=== PATIENT | male | born 1985 | race Asian ===

== ENCOUNTER → 2023-06-17 08:08 | Outpatient (REF) | payer OTHER, SELFPAY | LOC: DHSLP 08:08 | PROVIDERS: ATTENDING PHYSICIAN Family Medicine | DX: G47.00 Insomnia, unspecified (principal); R06.83 Snoring | CPT/HCPCS: 95810 ==

== ENCOUNTER → 2023-09-02 | Outpatient (REF) | payer OTHER, SELFPAY | LOC: DHSLP | PROVIDERS: ATTENDING PHYSICIAN Internal Medicine; FAMILY PHYSICIAN Family Medicine | DX: G47.33 Obstructive sleep apnea (adult) (pediatric) (principal); G47.00 Insomnia, unspecified | CPT/HCPCS: 95810 ==

== ENCOUNTER 2023-12-28 03:12 | Inpatient (IN) | payer OTHER, SELFPAY ==
[2023-12-27 22:33] VITALS: BP 154/103
[2023-12-27 23:16] VITALS: BMI 31.0
[2023-12-27 23:21] VITALS: BP 142/81
--- NOTE | 2023-12-27 23:25 | ED.GENMED ---
History of Present Illness
General
Chief Complaint: Abdominal Pain
Source: patient
Exam Limitations: none
Time Seen by Provider: 12/27/23 22:58
History of Present Illness
History of Present Illness:
This is a 38 year old male that comes in with c/o vomiting and abd pain. States that he started with vomiting on Tuesday and this continued today. States that he has abd pain that started today with the vomiting. States that he felt slightly SOB, had
diarrhea and dizziness. Denies any fever, chills, chest pain, headache, urinary burning.
Past History
Past History
ED Past Medical History: Arrthythmia (SVT), HTN, Psychiatric (Anxiety) and Other (Sleep apnea, Colitis, )
ED Past Surgical History: Cardiac (Ablation for SVT) and Other (Deviated septum repair)
Social History
Tobacco: Non-smoker
Alcohol: None
Drug: Marijuana (for his anxiety)
Personal: Single
Living: with family
Review of Systems
Review of Systems
All Other Systems: ROS reviewed and negative except as documented in HPI and ROS
Constitutional: Reports no symptoms; Denies fever or chills
EENT: Reports no symptoms
Respiratory: Reports trouble breathing; Denies cough
Cardiac: Reports no symptoms; Denies chest pain
ABD/GI: Reports abdominal pain, nausea, vomiting and diarrhea
: Reports no symptoms; Denies dysuria, frequency or urgency
Musculoskeletal: Reports no symptoms
Skin: Reports no symptoms
Neurological: Reports dizzy; Denies headache
Psychiatric: Reports no symptoms
Phy Exam
General Physical Exam
General Presentation: no apparent distress
General age: appears stated age
General Skin: warm and dry
General Habitus: normal
General Mental: alert
General Hydration: dry mucous membranes
ENT Exam
ENT Exam: TM's normal, pharynx normal and neck supple
Eye Exam
Eye Exam: EOMI
Cardiovascular Exam
Cardiovascular Exam: regular rate/rhythm, no edema, no murmur and normal peripheral pulses
Pulmonary Exam
Pulmonary Exam: lungs clear, no respiratory distress, no rales, chest non tender, no crackles, no rhonchi, no wheezing and no cough
Gastrointestinal Exam
Gastrointestinal Exam: normal bowel sounds, soft, no organomegaly, no pulsatile mass, non distended and tender (Left sided abd tenderness with palpation)
Musculoskeletal Exam
Musculoskeletal Exam: full ROM and no edema
Skin Exam
Skin Exam: normal color, warm/dry, no rash and no petechia
Psychiatric Exam
Psychiatric Exam: normal mood/affect
Course
Orders/Labs/Results
Orders:
Orders
12/27/23 23:22
0.9% Sodium Chloride 1000 ml [Nss] 1,000 ml IV BOLUS
Ondansetron Injectable [Zofran] 4 mg IV NOW STA
12/27/23 23:24
Ketorolac [Toradol] 30 mg IV NOW STA
12/27/23 23:33
B-Hydroxybutyrate Urgent
Comment: ADD ON
CBC/With Diff [Complete Blood Count/With Diff] Urgent
CMP [Comprehensive Metabolic Panel] Urgent
Lipase Urgent
12/28/23 00:02
Diphenhydramine [Benadryl] 25 mg IV NOW STA
Prochlorperazine [Compazine] 5 mg IV NOW STA
12/28/23 00:24
Add On- LAB Urgent
Tests Added?: B-hydroxybutyrate
12/28/23 00:53
0.9% Sodium Chloride 1000 ml [Nss] 1,000 ml IV BOLUS
12/28/23 01:00
CT Abd/pelvis W Iv Cont Urgent
Reason For Exam: Left sided abd pain
12/28/23 01:17
Acetaminophen [Tylenol] 1,000 mg PO NOW STA
12/28/23 01:18
Acetaminophen [Tylenol] 1,000 mg .ROUTE .STK-MED ONE
12/28/23 01:43
Reg Insulin 100 Units/100 ml [Novolin R Insulin Infusion] 100 units in 100 ml IV NOW
12/28/23 01:45
Bedside Glucose- Treatment Q1H
IV Insert/Care/Rem.- Treatment PRN
Basic Metabolic Panel Q2H
12/28/23 03:45
Basic Metabolic Panel Q2H
12/28/23 05:45
Basic Metabolic Panel Q2H
Abnormal Lab Results
12/27/23 12/28/23
23:33 01:40
WBC 13.9 H 10^3/uL
(4.8-10.8)
MCH 31.9 H pg
(27.0-31.0)
Abs Immat Gran (auto) 0.1 H 10^3/uL
(0-0.05)
Absolute Neuts (auto) 11.9 H 10^3/uL
(1.4-6.5)
Neutrophils % 85.5 H %
(42.2-75.2)
Lymphocytes % 9.9 L %
(20.5-51.1)
Potassium 5.2 H mmol/L
(3.5-5.1)
Carbon Dioxide 19 L mmol/L
(22-30)
Glucose 191 H mg/dl
(70-99)
Calcium 10.5 H mg/dl
(8.4-10.2)
Albumin 5.3 H g/dl
(3.5-5.0)
B-Hydroxybutyrate 1.60 H mmol/L
(0.02-0.27)
POC Glucose 156 H mg/dl
(70-99)
12/27/23 23:33
Leukocytosis, carbon dioxide low. Hyperglycemia. Hypercalemia, Albumin slightly elevated B-Hydroxybutyrate elevated and Anion Gap 16.
Vital Signs
Initial and Last Documented VS:
Initial Vital Signs
Pulse Resp BP Pulse Ox
95 24 154/103 97
12/27/23 22:33 12/27/23 22:33 12/27/23 22:33 12/27/23 22:33
Last Documented Vital Signs
Temp Pulse Resp BP Pulse Ox
98.5 F 79 14 138/91 100
12/28/23 00:30 12/27/23 23:45 12/27/23 23:45 12/27/23 23:42 12/27/23 23:45
MDM/Problems Addressed
Differential Diagnosis Includes:
Viral syndrome, Colitis, Diverticulitis
MDM/Problems Addressed:
This is a 38 year old male that comes in with c/o nausea,vomiting, diarrhea and abd pain. States that this started yesterday and continued all day today.
will check labs. IV fluid. Medication for pain and nausea and get Ct scan.
Back into see patient. Explained that his CT scan is negative for any acute process. His blood work shows that he may have new onset diabetes. Finger stick was done after 2 liters and his Blood sugar remains 156. Will start on Insulin and admit
patient. Hospitalist notified.
Chronic conditions affecting care:
NA
Acute Exacerbation and/or Progression of Chronic Illness:
NA
*Radiology
Radiology exam reviewed: radiology read reviewed (CT night hawk- No definite cause for acute abdominal pain identified. Normal appendix. No calcified gallstones. No bowel obstruction or bowel wall thickening. No obstructive urolithiasis. No free
fluid nor free air. )
*Pulse Oximetry
Patient hypoxic: no
*EKG
Interpreted by ED Provider?: NA
Rate: EKG- N/A
*Organic Chemist Interpretation
Rate: Organic Chemist- N/A
*Critical Care Note
Total Time (30-74mins, 75-104mins- exclusive of procedures): Not Applicable
ED Attending Note
-
Portions of this chart may have been created with voice recognition software.� Occasional wrong word or��sound alike� substitutions may have occurred due to the inherent limitations of voice recognition software.
Discharge Plan
Departure
Patient Disposition: Admit
Date of Disposition: 12/28/23
Time of Disposition: 01:49
Admit to: IMU
Presentation/result/management discussed w/ accepting MD/DO: Hospitalist
Patient with high blood pressure during this ER visit?: Yes
Condition: Good
Covid-19: Not Applicable
Discharge Problem:
Nausea & vomiting, Diabetes mellitus, new onset
Prescriptions:
No Action
multivitamin 1 EACH tablet
1 ea PO DAILY
Unisom (doxylamine) 25 MG tablet
25 mg PO HS
alprazolam 1 MG tablet
1 mg PO HS
diphenhydramine HCl [Banophen] 25 MG capsule
25 mg PO HS
fluticasone propionate 1 SPRAY spray,suspension
2 spray intranasal DAILY
finasteride 1 MG tablet
2.5 mg PO DAILY
amlodipine [Norvasc] 2.5 mg Tablet
2.5 mg PO DAILY
escitalopram oxalate [Lexapro] 5 mg Tablet
5 mg PO QPM
metoprolol succinate 100 mg tablet extended release 24 hr
100 mg PO DAILY
pygeum africanum 50 mg Capsule
250 mg PO DAILY
ondansetron 4 mg tablet,disintegrating
4 mg PO BIDPRN PRN (Reason: NAUSEA)
PreserVision AREDS-2 250-90-40-1 mg Capsule
1 tab PO HS
[place] 3-6-9 1,200 mg Capsule
1 cap PO DAILY
nystatin 100,000 unit/mL Suspension
5 ml PO QID 14 Days Qty: 280 0RF
dicyclomine 20 mg tablet
20 mg PO BIDPRN PRN (Reason: gastric upset abdomen pain) 7 Days Qty: 14 0RF
Referrals:
Schnur,Lázaro H., MD [Family Provider] -
Interventions
Interventions:
*Risk Screen - Suicide Last Done: 12/27/23 23:05
*General Assessment Last Done: 12/27/23 23:05
ED- Fall Risk Assessment Last Done: 12/27/23 23:05
*ED COVID-19 Vaccine History Last Done: 12/27/23 23:05
BH-Wwolzs-Rvijpqcbvh Assessment Last Done: 12/27/23 23:05
Discharge Date and Time
Print Language: FINNISH
[2023-12-27] MEDS: NSS 1000 IV (23:31)
[2023-12-27] MEDS: TORADOL 30 MG IV (23:38)
[2023-12-27] MEDS: ZOFRAN 4 MG IV (23:38)
[2023-12-27 23:41] LABS: % Basophils 0.4 % (0-2); % Eosinophils 0.1 % (0-6); % Immature Granulocytes 0.4 % (0-0.5); % Lymphocytes 9.9 % (20.5-51.1); % Monocytes 3.7 % (1.7-9.3); % Neutrophils 85.5 % (42.2-75.2); Absolute Basophils 0.1 10^3/uL (0-0.2); Absolute Immature Granulocytes 0.1 10^3/uL (0-0.05); Absolute Lymphocytes 1.4 10^3/uL (1.2-3.4); Absolute Monocytes 0.5 10^3/uL (0.1-0.6); Absolute Neutrophils 11.9 10^3/uL (1.4-6.5); Hematocrit 44.9 % (39.0-52.0); Hemoglobin 16.4 g/dL (13.0-18.0); Mean Corp Hgb Conc. 36.5 g/dL (33.0-37.0); Mean Corpuscular Hgb 31.9 pg (27.0-31.0); Mean Corpuscular Volume 87.4 fL (80.0-94.0); Mean Platelet Volume 10.2 fL (7.4-10.4); Nucleated Red Blood Cells % 0 % (-); Platelet Count 297 10^3/uL (130-400); Red Blood Cell Count 5.14 10^6/uL (4.70-6.10); Red Cell Dist. Width 12.1 % (11.5-14.5); White Blood Cell Count 13.9 10^3/uL (4.8-10.8)
[2023-12-27 23:42] VITALS: BP 138/91
[2023-12-27 23:53] LABS: ALT (SGPT) 38 U/L (0-50); AST (SGOT) 31 U/L (17-59); Albumin 5.3 g/dl (3.5-5.0); Alkaline Phosphatase 52 U/L (38-126); Blood Urea Nitrogen 13 mg/dl (9-20); Calcium 10.5 mg/dl (8.4-10.2); Carbon Dioxide 19 mmol/L (22-30); Chloride 102 mmol/L (98-107); Estimated Creatinine Clearance 111 ml/min; Glucose 191 mg/dl (70-99); Lipase 80 U/L (23-300); Potassium 5.2 mmol/L (3.5-5.1); Sodium 137 mmol/L (135-145); Total Bilirubin 1.1 mg/dl (0.2-1.3); Total Protein 8.1 g/dl (6.3-8.2); eGFR > 60.00
[2023-12-28] VITALS (13 sets, daily range): BP systolic 116–176; BP diastolic 82–112; PULSE 86–96; BMI 30.2
[2023-12-28] MEDS: BENADRYL 25 MG IV (00:08)
[2023-12-28] MEDS: COMPAZINE 5 MG IV ×3 (00:09→19:31)
[2023-12-28] MEDS: NSS 1000 IV ×5 (00:57→20:42)
[2023-12-28] MEDS: TYLENOL 1000 MG PO (01:24)
[2023-12-28 01:44] LABS: Glucose - Point of Care 156 mg/dl (70-99)
--- NOTE | 2023-12-28 02:24 | HPS.HSE ---
Family Physician
-
Family Physician: Lázaro Quezada
Chief Complaint
-
N/V, Abdominal Pain
History of Present Illness
Patient is a 38y M with PMH significant for SVT, anxiety and cyclic vomiting syndromes who presents to ED complaining of N/V and abdominal pain. Patient states that he developed nausea with persistent episodes of non-bloody, bilious emesis on
Tuesday of this week. He notes that he has been unable to tolerate any PO intake in the past 2 days. He developed epigastric abdominal pain - after having persistent emesis. He denies any BM, diarrhea, etc. He denies any fevers / chills. He
complains of fatigue general malaise, dry mouth. Patient has had multiple prior admissions for similar symptoms, but states that current symptoms are more severe. He denies any new medications / changes in chronic med regimen.
Medical History
Past Medical History
Past Medical History: Reports Other
Additional Past Medical History:
Generalized Anxiety
SVT s/p Ablation
Hypertension
Obesity
Past Surgical History: Reports Other
Additional Past Surgical History:
SVT Ablation
Nasal Septoplasty
Social History
Tobacco: Vaping (Marijuana vaping - 'more than I should'. Last use 2 days ago.)
Alcohol: None
Drug: Marijuana (As above)
Family History
Family History: Adopted
Allergies / Home Medications
Allergies reflects when Allergies were last updated in [facility].
Home Medications with original date entered in [facility]
Allergy/Medication List:
Allergies
Allergy/AdvReac Type Severity Reaction Status Date / Time
No Known Allergies Allergy Verified 12/27/23 22:36
Home Medications
doxylamine succinate 25 mg tablet (Unisom (doxylamine)) 25 mg PO HS Sleep 04/14/17
alprazolam 1 mg tablet 1 mg PO HS Mental Health/Anxiety 01/25/20
diphenhydramine HCl 25 mg capsule (Banophen) 25 mg PO HS Sleep 01/25/20
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
fluticasone propionate 50 mcg/actuation nasal spray,suspension 1 spray intranasal BID Allergies 01/25/20
amlodipine 2.5 mg tablet (Norvasc) 2.5 mg PO DAILY Heart disease/condition 12/12/21
metoprolol succinate 100 mg tablet,extended release 24 hr 100 mg PO DAILY 06/20/22
bupropion HCl 300 mg 24 hr tablet, extended release 300 mg PO DAILY 12/28/23
emtricitabine 200 mg-tenofovir disoproxil fumarate 300 mg tablet (Truvada) 1 tab PO DAILY 12/28/23
Review of Systems
-
History Source: Patient
A 12 point ROS was completed and negative except as noted: Yes
Constitutional: Reports Fatigue; Denies Fever
EENT: Denies Sore Throat
Respiratory: Denies Cough or Trouble Breathing
Cardiac: Denies Chest Pain or Palpitations
Abdomen/GI: Reports Abdominal Pain, Nausea and Vomiting; Denies Diarrhea or Constipated
: Denies Dysuria or Frequency
Musculoskeletal: Denies Joint Pain or Edema
Neurological: Reports Headache; Denies Dizzy
Psych: Denies Depression or Anxiety
Physical Exam
Vital Signs
Vital Signs
Temp Pulse Resp BP Pulse Ox
98.5 F 90 21 148/95 100
12/28/23 00:30 12/28/23 02:00 12/28/23 02:00 12/28/23 01:26 12/28/23 01:45
Physical Exam
General: Other (38y M pale-appearing and in mild distress due to nausea.)
HEENT: Other (Dry MM. )
Respiratory: Clear; No Wheezes, Rales or Rhonchi
Cardiac: S1/S2 and Regular Rhythm; No Murmur
GI: Soft, Non Distended, Normal Bowel Sounds and Other (Mildly / diffusely tender.)
Musculoskeletal: No Clubbing, No Cyanosis and No Edema
Neuro: AO x 3
Laboratory Results
-
12/27/23 23:33
Laboratory Results
Total Bilirubin 1.1 mg/dl (0.2-1.3) 12/27/23 23:33
AST 31 U/L (17-59) 12/27/23:33
ALT 38 U/L (0-50) 12/27/23:33
Alkaline Phosphatase 52 U/L (38-126) 12/27/23:
Lipase 80 U/L (23-300) 12/27/23:33
Impression/Plan
-
A/P: Patient is a 38y M with PMH significant for anxiety and CVS who presents to ED complaining of N/V x 2 days and upper abdominal discomfort.
Intractable N/V
Abdominal Pain
Cyclic Vomiting Syndrome
- Admit for further evaluation and treatment.
- Supportive measures including antiemetics, IVFs, etc.
- Follow for clinical improvement.
- Again counseled patient on contribution marijuana (medical or otherwise) is likely having on these episodes.
Anion Gap Metabolic Acidosis
- Likely starvation ketosis +/- component of lactic acidosis.
- Not likely DKA with glucose 150 and history of prior similar presentations that resolved with volume alone.
- Aggressive IVF replacement.
- Control N/V as noted above.
- Follow for improvement in labs / lytes in the AM.
Hyperglycemia
- This is likely reactive due to N/V / acute illness.
- Prior A1C (2022) was < 6%. Will update.
- Follow glucose and cover with SSI if needed - but already much improved with IVFs alone.
Benign Hypertension
History of SVT
- Stable. Monitor on telemetry overnight.
- Continue metoprolol and amlodipine with holding parameters.
Generalized Anxiety
- Continue Wellbutrin.
- See above discussion re: avoidance of marijuana in the future.
DVT Prophylaxis: Lovenox
Code Status: Full
[2023-12-28] MEDS: TIGAN 200 MG IM ×2 (02:44→08:34)
[2023-12-28 03:04] LABS: Urine Albumin Negative (Neg - Trace); Urine Bilirubin Negative (Negative); Urine Character Clear (Clear); Urine Color Yellow; Urine Glucose 1+ (Negative); Urine Ketone 3+ (Negative); Urine Leukocyte Negative (Negative); Urine Nitrite Negative (Negative); Urine Occult Blood Negative (Negative); Urine Urobilinogen Negative (Neg - 1+)
[2023-12-28 03:13] LABS: Amphetamines Negative (Negative); Barbiturates Negative (Negative); Benzodiazepines Positive (Negative); Buprenorphine Negative (Negative); Cocaine Negative (Negative); Marijuana Positive (Negative); Methadone Negative (Negative); Methamphetamines Negative (Negative); Opiates Negative (Negative); Phencyclidine Negative (Negative); Tricyclic Antidepressants Negative (Negative)
[2023-12-28 03:26] LABS: Fentanyl, Urine Negative (Negative)
[2023-12-28] MEDS: ZOFRAN 4 MG IV ×3 (05:39→18:21)
[2023-12-28 06:36] LABS: Hematocrit 44.3 % (39.0-52.0); Hemoglobin 15.2 g/dL (13.0-18.0); Mean Corp Hgb Conc. 34.3 g/dL (33.0-37.0); Mean Corpuscular Hgb 31.5 pg (27.0-31.0); Mean Corpuscular Volume 91.7 fL (80.0-94.0); Mean Platelet Volume 10.3 fL (7.4-10.4); Platelet Count 268 10^3/uL (130-400); Red Blood Cell Count 4.83 10^6/uL (4.70-6.10); Red Cell Dist. Width 12.2 % (11.5-14.5); White Blood Cell Count 15.3 10^3/uL (4.8-10.8)
--- NOTE | 2023-12-28 06:43 | PTCARENOTE ---
Pt received from the ED. He is oriented to the unit. Has bed in lowest position. Call forman in reach.
[2023-12-28 07:13] LABS: Blood Urea Nitrogen 10 mg/dl (9-20); Calcium 9.3 mg/dl (8.4-10.2); Carbon Dioxide 21 mmol/L (22-30); Chloride 103 mmol/L (98-107); Estimated Creatinine Clearance > 125 ml/min; Glucose 155 mg/dl (70-99); Magnesium 1.7 mg/dl (1.6-2.3); Phosphorus 3.4 mg/dl (2.5-4.5); Potassium 4.6 mmol/L (3.5-5.1); Sodium 142 mmol/L (135-145); eGFR > 60.00
[2023-12-28 07:36] LABS: TSH Reflex To Free T4 0.18 uIU/ml (0.47-4.68)
[2023-12-28 08:04] LABS: Free T4 1.13 ng/dl (0.78-2.19)
[2023-12-28] MEDS: WELLBUTRIN XL (24 hour extended release) PO ×2 (08:23→13:41)
[2023-12-28 08:24] LABS: Glucose - Point of Care 129 mg/dl (70-99)
[2023-12-28] MEDS: NSS (PRESERVATIVE FREE) 10 ML IV (08:24)
[2023-12-28] MEDS: PROTONIX IV 40 MG IV (08:24)
--- NOTE | 2023-12-28 10:14 | CM ---
Addendum entered by Maura Poole 12/28/23 12:07:
CM consult for [facility] consult related to marijuana use. I called [facility] and spoke with Rose who advised someone would be in touch with Obdulio today.
ESTEBAN will continue to follow.
Original Note:
ESTEBAN met with Obdulio at bedside. He lives independently with family in a 2 story home with 1 entry step. No history of VN, SNF or DME. Anticipate discharge to home with no needs.
Pharmacy: [facility] on [address]
PCP: Dr. Quezada
[2023-12-28 10:20] LABS: Glycohemoglobin (HgbA1c) 5.4 % (4.0-5.6)
[2023-12-28 11:35] LABS: Glucose - Point of Care 139 mg/dl (70-99)
--- NOTE | 2023-12-28 11:37 | W.PN.UPDATE ---
Update Note
Progress Note Update
Nonbillable addendum, admitted 230 AM
Patient nauseated, asking for further symptomatic care
remains on IVF
BP elevated, he cannot tolerate PO meds currently
Assessment:
Intractable N/V
Abdominal Pain
Cyclic Vomiting Syndrome
- Admit for further evaluation and treatment.
- Supportive measures including antiemetics, IVFs, etc. check EKG for QTc measurements
- Follow for clinical improvement.
- Again counseled patient on contribution marijuana (medical or otherwise) is likely having on these episodes. He is agreeable to [facility] eval.
Anion Gap Metabolic Acidosis
- Likely starvation ketosis +/- component of lactic acidosis.
- Not likely DKA with glucose 150 and history of prior similar presentations that resolved with volume alone.
- Continue IVF, reduce NS to 100/hour
- Control N/V as noted above.
- Follow labs
Hyperglycemia
- This is likely reactive due to N/V / acute illness.
- Prior A1C (2022) was < 6%. Now 5.4%
- Follow glucose and cover with SSI if needed - but already much improved with IVFs alone.
Reactive leukocytosis
- monitor CBC
Benign Hypertension
History of SVT
- Stable. Monitor on telemetry overnight.
- Continue metoprolol and amlodipine with holding parameters if able to tolerate meds otherwise IV agents available prn
Generalized Anxiety
- Continue Wellbutrin.
- See above discussion re: avoidance of marijuana in the future.
Hyperkalemia - resolved
DVT Prophylaxis: Lovenox
Code Status: Full
[2023-12-28] MEDS: APRESOLINE 5 MG IV (12:10)
[2023-12-28 16:22] LABS: Glucose - Point of Care 110 mg/dl (70-99)
[2023-12-28] MEDS: LOVENOX 40 MG SC (17:46)
[2023-12-28 21:39] LABS: Glucose - Point of Care 127 mg/dl (70-99)
[2023-12-28] MEDS: XANAX 1 MG PO (21:57)
[2023-12-29] MEDS: ZOFRAN 4 MG IV (01:19)
[2023-12-29 03:21] VITALS: BP 128/80
[2023-12-29 06:26] LABS: Hematocrit 42.4 % (39.0-52.0); Mean Corp Hgb Conc. 35.4 g/dL (33.0-37.0); Mean Corpuscular Hgb 32.1 pg (27.0-31.0); Mean Corpuscular Volume 90.6 fL (80.0-94.0); Mean Platelet Volume 9.9 fL (7.4-10.4); Platelet Count 241 10^3/uL (130-400); Red Blood Cell Count 4.68 10^6/uL (4.70-6.10); Red Cell Dist. Width 12.4 % (11.5-14.5); White Blood Cell Count 14.9 10^3/uL (4.8-10.8)
[2023-12-29] MEDS: COMPAZINE 5 MG IV (06:45)
[2023-12-29 07:08] LABS: Blood Urea Nitrogen 8 mg/dl (9-20); Calcium 9.3 mg/dl (8.4-10.2); Carbon Dioxide 24 mmol/L (22-30); Chloride 104 mmol/L (98-107); Estimated Creatinine Clearance > 125 ml/min; Glucose 92 mg/dl (70-99); Potassium 3.7 mmol/L (3.5-5.1); Sodium 144 mmol/L (135-145); eGFR > 60.00
[2023-12-29 07:21] LABS: Glucose - Point of Care 106 mg/dl (70-99)
[2023-12-29 07:25] VITALS: BP 131/79
[2023-12-29] MEDS: WELLBUTRIN XL (24 hour extended release) 300 MG PO (08:23)
[2023-12-29] MEDS: NSS (PRESERVATIVE FREE) 10 ML IV (08:27)
[2023-12-29] MEDS: PROTONIX IV 40 MG IV (08:28)
[2023-12-29 11:18] LABS: Glucose - Point of Care 101 mg/dl (70-99)
[2023-12-29 11:22] VITALS: BP 135/92
--- NOTE | 2023-12-29 11:24 | CM ---
CM following re: discharge planning.
Reviewed pt's chrat, met with pt.
Pt reports he met with [facility] and he agrees with outpatient D&A treatment programs. pt stated he will follow up with [facility] at discharge.
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
D/C plan: home with outpatient D&A treatment program and follow up with [facility].
[2023-12-29] MEDS: TYLENOL 650 MG PO (12:48)
--- NOTE | 2023-12-29 14:33 | W.PN.HOSP.TC ---
Today's Communication/Plan
-
dc to home later today if reg diet tolerated
Assessment / Plan
Assessment / Plan
Assessment:
Intractable N/V
Abdominal Pain
Cyclic Vomiting Syndrome
- symptoms resolving with symptomatic control
- advance diet as tolerated; if tolerates reg diet, then dc home
- Again counseled patient on contribution marijuana (medical or otherwise) is likely having on these episodes. He will follow up with [facility]
Anion Gap Metabolic Acidosis
- Likely starvation ketosis +/- component of lactic acidosis.
- Not likely DKA with glucose 150 and history of prior similar presentations that resolved with volume alone.
- resolved with IVF
Hyperglycemia
- This is likely reactive due to N/V / acute illness.
- Prior A1C (2022) was < 6%. Now 5.4%
- Follow glucose and cover with SSI if needed - but already much improved with IVFs alone.
Reactive leukocytosis
- monitor CBC; no infectious signs/symptoms
Benign Hypertension
History of SVT
- Stable. Monitor on telemetry overnight.
- Continue metoprolol and amlodipine with holding parameters if able to tolerate meds otherwise IV agents available prn
Generalized Anxiety
- Continue Wellbutrin.
- See above discussion re: avoidance of marijuana in the future.
Hyperkalemia - resolved
DVT Prophylaxis: Lovenox
Code Status: Full
More than 30 minutes spent in discharge including
Final examination of the patient
Summarizing hospital stay
Instructions for continuing care to all relevant caregivers
Preparation of discharge records, prescriptions, and referral forms
Total time spent (in minutes): 41
Anticipated Discharge: Today
Subjective/Interval History
-
Date of Service: December 29, 2023
tolerating clears, n/v resolving
Objective Data
-
Labs:
Laboratory Results
09/12/24
05:54
WBC 14.9 H
Hgb 15.0
Hct 42.4
Plt Count 241
Sodium 144
Potassium 3.7
Chloride 104
Carbon Dioxide 24
BUN 8 L
Creatinine 0.8
Glucose 92
Calcium 9.3
Vital Signs:
Vital Signs
Temp Pulse Resp BP Pulse Ox
98.2 F 95 17 135/92 97
12/29/23 11:22 12/29/23 11:22 12/29/23 11:22 12/29/23 11:22 12/29/23 11:22
I&O
12/28/23 12/29/23 12/30/23
06:59 06:59 06:59
Intake Total 480 / 480 150 / 150
Balance 480 / 480 150 / 150
Physical Exam
-
General: No Apparent Distress
HEENT: Normocephalic
Respiratory: Negative Wheezes
Cardiac: Regular Rhythm and S1/S2
GI: Soft and Nontender
Genito-urinary: No Costovertebral Tender
Musculoskeletal: No Edema
Neuro: AO x 3
Psych: Calm
Data Reviewed
-
Total Time Spent with Patient (in minutes): 41
Labs: Labs Reviewed by me
--- NOTE | 2023-12-29 14:37 | W.DS.TRANS ---
DC Summary - Head Lineman
-
Discharge Instructions:
Discharge Diagnosis/Procedures cyclical vomiting syndrome from MJ use
Diet Regular
Activity As tolerated
Bathing Restrictions None
Instructions:
Stand-Alone Forms:
Changes to Home Medications: No
Discharge Medications:
DC Medications w/original date entered in [employer]
doxylamine succinate 25 mg tablet (Unisom (doxylamine)) 25 mg PO HS Sleep 04/14/17
alprazolam 1 mg tablet 1 mg PO HS Mental Health/Anxiety 01/25/20
diphenhydramine HCl 25 mg capsule (Banophen) 25 mg PO HS Sleep 01/25/20
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
fluticasone propionate 50 mcg/actuation nasal spray,suspension 1 spray intranasal BID Allergies 01/25/20
amlodipine 2.5 mg tablet (Norvasc) 2.5 mg PO DAILY Heart disease/condition 12/12/21
metoprolol succinate 100 mg tablet,extended release 24 hr 100 mg PO DAILY Blood Pressure 06/20/22
bupropion HCl 300 mg 24 hr tablet, extended release 300 mg PO DAILY Depression 12/28/23
emtricitabine 200 mg-tenofovir disoproxil fumarate 300 mg tablet (Truvada) 1 tab PO DAILY pre-exposure prophylaxis 12/28/23
ondansetron 4 mg disintegrating tablet 4 mg PO Q8H PRN nausea and vomiting #20 tabs 12/29/23
Home Medication Changes
Pending Results: No
Total time spent discharging patient (in min): 41
[2023-12-29 15:29] VITALS: BP 134/99
== END 2023-12-29 16:19 | disposition home or self-care (01) | DRG 394 ==
LOC: 3 WEST ACU 03:12
PROVIDERS: Emergency Medicine; ADMITTING PHYSICIAN Hospitalist; ATTENDING PHYSICIAN Internal Medicine; EMERGENCY PHYSICIAN Student in an Organized Health Care Education/Training Program; FAMILY PHYSICIAN Family Medicine
DX: R11.15 Cyclical vomiting syndrome unrelated to migraine (principal); E87.20 Acidosis, unspecified; I47.10 Supraventricular tachycardia, unspecified; E11.65 Type 2 diabetes mellitus with hyperglycemia; I10 Essential (primary) hypertension; F41.1 Generalized anxiety disorder; E87.5 Hyperkalemia
CPT/HCPCS: 74177; 80048; 80053; 80306; 80307; 81003; 82010; 82962; 83036; 83690; 83735; 84100; 84439; 84443; 85025; 85027; 93005; 99285; Q9967

== ENCOUNTER → 2024-08-17 14:55 | Outpatient (REF) | payer OTHER, SELFPAY | LOC: RAD 14:55 | PROVIDERS: ATTENDING PHYSICIAN Family Medicine | DX: Z13.29 Encounter for screening for other suspected endocrine disorder (principal); Z78.9 Other specified health status | CPT/HCPCS: 76536 ==

== ENCOUNTER 2024-08-31 22:00 | Inpatient (IN) | payer OTHER, SELFPAY ==
[2024-08-31] VITALS (16 sets, daily range): BP systolic 132–185; BP diastolic 83–110; BMI 30.2
[2024-08-31] MEDS: ZOFRAN ODT (ORALLY DISINTEGRATING) 4 MG PO (15:07)
[2024-08-31 15:20] LABS: Hematocrit 43.2 % (39.0-52.0); Hemoglobin 15.5 g/dL (13.0-18.0); Mean Corp Hgb Conc. 35.9 g/dL (33.0-37.0); Mean Corpuscular Hgb 32.3 pg (27.0-31.0); Mean Platelet Volume 9.5 fL (7.4-10.4); Platelet Count 307 10^3/uL (130-400); Red Cell Dist. Width 11.9 % (11.5-14.5); White Blood Cell Count 22.4 10^3/uL (4.8-10.8)
[2024-08-31 15:30] LABS: AST (SGOT) 29 U/L (17-59); Albumin 4.8 g/dl (3.5-5.0); Alkaline Phosphatase 56 U/L (38-126); Blood Urea Nitrogen 16 mg/dl (9-20); Calcium 9.7 mg/dl (8.4-10.2); Carbon Dioxide 21 mmol/L (22-30); Chloride 104 mmol/L (98-107); Glucose 253 mg/dl (70-99); Lipase 76 U/L (23-300); Potassium 4.3 mmol/L (3.5-5.1); Sodium 139 mmol/L (135-145); Total Bilirubin 0.5 mg/dl (0.2-1.3); Total Protein 8.5 g/dl (6.3-8.2); eGFR > 60.00
[2024-08-31 15:38] LABS: % Basophils 0.3 % (0-2); % Immature Granulocytes 1.5 % (0-0.5); % Lymphocytes 4.6 % (20.5-51.1); % Neutrophils 91.6 % (42.2-75.2); Absolute Basophils 0.1 10^3/uL (0-0.2); Absolute Immature Granulocytes 0.3 10^3/uL (0-0.05); Absolute Monocytes 0.4 10^3/uL (0.1-0.6); Absolute Neutrophils 20.6 10^3/uL (1.4-6.5); Nucleated Red Blood Cells % 0 % (-)
[2024-08-31 15:42] LABS: ALT (SGPT) 45 U/L (0-50)
--- NOTE | 2024-08-31 16:28 | ED.GENMED ---
History of Present Illness
General
Chief Complaint: Abdominal Symptoms
Source: patient
Exam Limitations: none
Time Seen by Provider: 08/31/24 16:00
Nursing documentation reviewed up to this point in time: agreed with
History of Present Illness
History of Present Illness:
38-year-old male with history hypertension presenting to the emergency department for evaluation of intractable nausea/vomiting. Patient he has been vomiting for the past 48 hours. He reports mild upper abdominal discomfort which she thinks is
from vomiting. He is unable to tolerate any p.o. food or liquid for the past 2 days and feels very dehydrated. He reports objective fevers. He denies any diarrhea/constipation. No dysuria or hematuria. No chest pain or shortness of breath.
Patient does have a history of cyclical vomiting in the past which was suspected to be from cannabis however patient states he has not smoked marijuana in the past 3 months.
No known sick contacts.
Past History
Past History
ED Past Medical History: Arrthythmia (SVT), HTN, Psychiatric (Anxiety) and Other (Sleep apnea, Colitis, )
ED Past Surgical History: Cardiac (Ablation for SVT) and Other (Deviated septum repair)
Social History
Tobacco: Non-smoker
Alcohol: None
Drug: Marijuana (for his anxiety)
Personal: Single
Living: with family
Review of Systems
Review of Systems
Allergies reviewed?: Yes
All Other Systems: ROS reviewed and negative except as documented in HPI and ROS
Phy Exam
Physical Exam
Physical Exam:
Vitals: Hypertensive, borderline tachycardic, afebrile
General: Patient is pale appearing, actively retching
Skin: Warm and dry, no rashes or lesions
Head: Normocephalic, atraumatic
Eyes: Sclera nonicteric.
Throat: Protecting airway
Neck: Normal ROM, no cervical spine tenderness, no meningismus
Cardiac: Mildly tachycardic, normal rhythm, no murmurs.
Pulm: Normal respiratory effort, no wheezes, rales, rhonchi heard on exam
.
Abdomen: Abdomen soft. Diffuse abdominal tenderness without rebound tenderness or guarding.
Extremities: No evidence of cyanosis or edema
Neuro: AAOx3. Grossly intact.
Psychiatric: Normal affect.
Sepsis
Sepsis Screening
Sepsis Assessment: Sepsis Ruled Out
Sepsis Screen
Sepsis Screen: Sepsis Ruled Out
Date: 08/31/24
Course
Orders/Labs/Results
Orders:
Orders
08/31/24 15:06
Ondansetron Orally Disint [Zofran Odt (Orally Disintegrating)] 4 mg .ROUTE .STK-MED ONE
08/31/24 15:07
Ondansetron Orally Disint [Zofran Odt (Orally Disintegrating)] 4 mg PO NOW STA
08/31/24 15:09
Complete Blood Count/With Diff Urgent
Comprehensive Metabolic Panel Urgent
Lipase Urgent
08/31/24 16:22
Diphenhydramine [Benadryl] 25 mg IV NOW STA
Famotidine [Pepcid] 20 mg IV NOW STA
Metoclopramide [Reglan] 10 mg IV NOW STA
08/31/24 16:23
CT Abd/pelvis W Iv Cont Urgent
Comment:
Reason For Exam: abdominal pain, intractable vomiting
08/31/24 16:24
0.9% Sodium Chloride 1000 ml [Nss] 1,000 ml IV BOLUS
08/31/24 17:37
Electrocardiogram (*1) Urgent
Reason for Study: QTc Monitoring
08/31/24 17:51
0.9% Sodium Chloride 1000 ml [Nss] 1,000 ml IV BOLUS
08/31/24 17:57
Fentanyl, Urine Urgent
Urinalysis Reflex To Culture Urgent
Date Specimen was Collected: 08/31/24
Time Specimen was Collected: 17:55
Urine Drug Abuse Screen Urgent
Date Specimen was Collected: 08/31/24
Time Specimen was Collected: 17:57
Urine Microscopic Reflex Cult Urgent
08/31/24 18:26
Ketorolac [Toradol] 15 mg IV NOW STA
08/31/24 20:06
0.9% Sodium Chloride 1000 ml [Nss] 1,000 ml IV BOLUS
08/31/24 20:53
Piperacillin/Tazo 3.375 Gram [Zosyn] 3.375 gram in 50 ml IV NOW
08/31/24 21:18
HydrALAZINE [Apresoline] 5 mg IV NOW STA
08/31/24 21:30
Acetaminophen 1000MG/100Ml [Ofirmev] 1,000 mg in 100 ml IV ONCE
Acetaminophen IV Indication:: Ileus/Delayed Bowel Func.
08/31/24 21:35
Admit/Transfer Patient As Directed
Co-Sign Provider:
Level of Care: Inpatient admission
Assign to:: Medical/Surgical
Physician / Group: Manish
Diagnosis: Enterocolitis
Reason for Hospitalization: IVF, IV abx
Expected length of stay greater than two midnights?: Yes
ELOS- Estimated Length of Stay in days: 3
I certify the patient meets the requirements for IP care: Yes
PRN Pain Medication Management As Directed
May give lesser potent ordered pain med per pt: Yes
preference::
Protocol:: Medication orders for pain may be administered in a
manner that supports deferring to patient preference
when the pt is:
- Requesting an ordered lesser potent pain medication.
Least to most potent pain medications are defined
as: acetaminophen < NSAID < tramadol < opioids
(morphine, oxycodone, hydromorphone).
- Requesting a lesser dose of the same medication IF
ORDERED.
- Requesting a less intrusive route of administration
if both routes are prescribed by the provider (PO <
IV).
08/31/24 21:42
Code Status As Directed
Resuscitation Status: Full Code
08/31/24 22:00
Flush (0.9% Sodium Chloride) [Flush (Nss)] See Dose Instructions IV PER PROTOCOL
09/01/24 00:13
0.9% Sodium Chloride 1000 ml [Nss] 1,000 ml IV 125 mls/hr
Acetaminophen [Tylenol] 650 mg PO Q4HPRN PRN
Alprazolam [Xanax] 1 mg PO HS
Ondansetron Injectable [Zofran] 4 mg IV Q6HPRN PRN
09/01/24 00:13
Activity As Directed
Activity Level: Out of Bed-Early Mobility
With Assistance
Vital Signs As Directed
Frequency: Per unit guidelines
DX Deep Vein Thrombosis Video Routine
09/01/24 02:00
Piperacillin/Tazo 3.375 Gram [Zosyn] 3.375 gram in 50 ml IV Q6H
09/01/24 Breakfast
NPO
Allow oral meds: Yes
Allow clear liquids: Sips of Clears
NPO with Ice Chips: Yes
09/01/24 06:31
Basic Metabolic Panel IN AM
Complete Blood Count/No Diff IN AM
Hgba1c [Glycohemoglobin (HgbA1c)] IN AM
Magnesium IN AM
09/01/24 08:00
Alprazolam [Xanax] 0.5 mg PO DAILY
Bupropion(24Hr)Extended Releas [WELLBUTRIN XL (24 hour extended release)] 300 mg PO DAILY
Pantoprazole [Protonix IV] 40 mg IV DAILY
09/01/24 18:00
Enoxaparin Sodium [Lovenox] 40 mg SC QPM
Abnormal Lab Results
08/31/24 08/31/24 08/31/24
15:09 17:57 20:05
WBC 22.4 H 10^3/uL
(4.8-10.8)
MCH 32.3 H pg
(27.0-31.0)
Abs Immat Gran (auto) 0.3 H 10^3/uL
(0-0.05)
Absolute Neuts (auto) 20.6 H 10^3/uL
(1.4-6.5)
Absolute Lymphs (auto) 1.0 L 10^3/uL
(1.2-3.4)
Immature Gran % 1.5 H %
(0-0.5)
Neutrophils % 91.6 H %
(42.2-75.2)
Lymphocytes % 4.6 L %
(20.5-51.1)
Carbon Dioxide 21 L mmol/L
(22-30)
Glucose 253 H mg/dl
(70-99)
Total Protein 8.5 H g/dl
(6.3-8.2)
Urine Ketones 2+ A
(Negative)
Urine Bacteria (Reflex) Few A
(Negative)
Urine Glucose 4+ A
(Negative)
Urine Albumin (Reflex) 1+ A
(Neg - Trace)
U Benzodiazepines Scrn Positive H
(Negative)
POC Glucose 131 H mg/dl
(70-99)
08/31/24 15:09
08/31/24 15:09
Vital Signs
Temp: 99.0 F
Initial and Last Documented VS:
Initial Vital Signs
Pulse Resp BP Pulse Ox
99 18 154/107 97
08/31/24 14:57 08/31/24 14:57 08/31/24 14:57 08/31/24 14:57
Last Documented Vital Signs
Temp Pulse Resp BP Pulse Ox
98.7 F 93 16 125/84 98
09/01/24 08:25 09/01/24 08:25 09/01/24 08:25 09/01/24 08:25 09/01/24 08:25
MDM/Problems Addressed
Differential Diagnosis Includes:
Not limited to: Viral gastroenteritis, cannabis induced cyclical vomiting, acute appendicitis, acute cholecystitis, biliary colic, etc.
MDM/Problems Addressed:
38-year-old male with 2 days of intractable nausea/vomiting and mild abdominal pain. Subjective fevers at home. No diarrhea/constipation or urinary symptoms. Patient has not used marijuana in over 3 months. Patient mildly tachycardic on arrival
with otherwise stable vital signs. Is afebrile. Patient appears pale appearing. Cardio/pulmonary assessment unremarkable. Abdomen is soft with mild diffuse tenderness although no rebound tenderness or guarding.
Basic labs were sent in triage and show significant leukocytosis of 22 with left shift. Patient is hyperglycemic�I suspect to be likely secondary to dehydration. Will recheck after IV fluids. Otherwise chemistry unremarkable. Given significant
leukocytosis and history of subjective fevers at home will obtain CT abdomen/pelvis. Will treat patient IV fluids. Will give Reglan, Pepcid, and reassess.
Update: CT scan shows acute enterocolitis. Blood glucose did decrease following IV fluids. Patient remains nauseated and unable to tolerate p.o. intake despite multiple rounds of IV antiemetic therapy in ED. At this point�feel patient should be
admitted for IV hydration, IV antiemetics, and further observation. Will start empiric Zosyn. Patient accepted to hospitalist service in stable condition
Chronic conditions affecting care:
Hypertension
Acute Exacerbation and/or Progression of Chronic Illness:
Acutely hypertensive
*Radiology
Radiology exam reviewed: radiology read reviewed
*Pulse Oximetry
Patient hypoxic: no
*EKG
Interpreted by ED Provider?: Yes
Interpretation: normal
Comparison EKG: changes noted
Heart Rate: 84
Rate: normal
Rhythm: sinus
[place]: normal axis
Interval: long QT (Mildly increased)
QRS Pattern: normal QRS
Ischemia: non-specific ST changes
*Commodity Director Interpretation
Rate: tachycardiac
Interpretation: abnormal
Heart Rate: 102
Rhythm: sinus
*Critical Care Note
Total Time (30-74mins, 75-104mins- exclusive of procedures): Not Applicable
Patient Management
Discussion with other providers: Hospitalist
Escalation/DeEscalation of care consider admission/obs:
Admit indicated
ED Attending Note
-
Portions of this chart may have been created with voice recognition software.� Occasional wrong word or��sound alike� substitutions may have occurred due to the inherent limitations of voice recognition software.
Discharge Plan
Departure
Patient Disposition: Admit
Date of Disposition: 08/31/24
Time of Disposition: 20:53
Presentation/result/management discussed w/ accepting MD/DO: Hospitalist
Discharge Problem:
Intractable nausea and vomiting, Enterocolitis
Interventions
Interventions:
*Risk Screen - Suicide Last Done: 08/31/24 14:57
*General Assessment Last Done: 08/31/24 14:57
*Neglect/Abuse Screening Last Done: 08/31/24 14:57
*ED- Fall Risk Assessment Last Done: 08/31/24 16:18
*Nursing Disposition Last Done: 09/01/24 00:17
UJ-Zglivs-Qebjgguqat Assessment Last Done: 08/31/24 16:18
Discharge Date and Time
Discharge Date/Time: 09/01/24 00:17
[2024-08-31] MEDS: PEPCID 20 MG IV (16:29)
[2024-08-31] MEDS: REGLAN 10 MG IV (16:29)
[2024-08-31] MEDS: BENADRYL 25 MG IV (16:29)
[2024-08-31] MEDS: NSS 1000 IV ×3 (16:30→20:12)
[2024-08-31 18:12] LABS: Urine Albumin 1+ (Neg - Trace); Urine Bilirubin Negative (Negative); Urine Character Clear (Clear); Urine Color Yellow; Urine Glucose 4+ (Negative); Urine Ketone 2+ (Negative); Urine Leukocyte Negative (Negative); Urine Nitrite Negative (Negative); Urine Occult Blood Negative (Negative); Urine Specific Gravity 1.015 (<1.030); Urine Urobilinogen Negative (Neg - 1+)
[2024-08-31 18:23] LABS: Urine Bacteria Few (Negative); Urine Red Blood Cell 0-2 /HPF (0-2); Urine Squamous Cell 0-2 /LPF (Few); Urine White Cell 0-2 /HPF (0-5)
[2024-08-31 18:24] LABS: Urine Mucus Few
[2024-08-31 18:43] LABS: Amphetamines Negative (Negative); Barbiturates Negative (Negative); Benzodiazepines Positive (Negative); Buprenorphine Negative (Negative); Cocaine Negative (Negative); Marijuana Negative (Negative); Methadone Negative (Negative); Methamphetamines Negative (Negative); Opiates Negative (Negative); Phencyclidine Negative (Negative); Tricyclic Antidepressants Negative (Negative)
[2024-08-31] MEDS: TORADOL 15 MG IV (18:55)
[2024-08-31 19:01] LABS: Fentanyl, Urine Negative (Negative)
[2024-08-31 20:09] LABS: Glucose - Point of Care 131 mg/dl (70-99)
[2024-08-31] MEDS: ZOSYN 50 IV (21:03)
--- NOTE | 2024-08-31 21:04 | HPS.HSE ---
Family Physician
-
Family Physician: NOT KNOW UNKNOWN - PT DOES
Chief Complaint
-
Persistent Vomiting
History of Present Illness
Patient is a 38 y/o male past medical history of hypertension, hyperlipidemia, SVT s/p ablation, and anxiety who presents with persistent vomiting x 2 days. Patient reports symptoms started after he ate can of soup 2 days ago. He reports some
crampy abdominal discomfort prior to episode of vomiting. He denies diarrhea. He denies fevers. Patient reports a similar episode in the past which was attributed to cyclic vomiting syndrome secondary to marijuana use. Patient states he has not
used marijuana in over 3 months.
Medical History
Past Medical History
Past Medical History: Reports Other
Additional Past Medical History:
Essential Hypertension
Hyperlipidemia
Supraventricular Tachycardia s/p Ablation
Cannabis Hyperemesis Syndrome
Generalized Anxiety Disorder
Major Depressive Disorder
Obstructive Sleep Apnea
Past Surgical History: Reports Other
Additional Past Surgical History:
Nasal Septoplasty
Social History
Tobacco: Non-smoker
Alcohol: None
Drug: Other (Prior marijuana use but none in over 3 months)
Family History
Family History: Not pertinent
Allergies / Home Medications
Allergies reflects when Allergies were last updated in [facility].
Home Medications with original date entered in [facility]
Allergy/Medication List:
Allergies
Allergy/AdvReac Type Severity Reaction Status Date / Time
No Known Allergies Allergy Verified 08/31/24 14:59
Home Medications
doxylamine succinate 25 mg tablet (Unisom (doxylamine)) 25 mg PO HS Sleep 04/14/17
alprazolam 1 mg tablet 1 mg PO HS Mental Health/Anxiety 01/25/20
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
fluticasone propionate 50 mcg/actuation nasal spray,suspension 1 spray intranasal BID Allergies 01/25/20
amlodipine 2.5 mg tablet (Norvasc) 2.5 mg PO DAILY Heart disease/condition 12/12/21
metoprolol succinate 100 mg tablet,extended release 24 hr 100 mg PO DAILY Blood Pressure 06/20/22
bupropion HCl 300 mg 24 hr tablet, extended release 300 mg PO DAILY Depression 12/28/23
emtricitabine 200 mg-tenofovir disoproxil fumarate 300 mg tablet (Truvada) 1 tab PO DAILY pre-exposure prophylaxis 12/28/23
Medical Marijuana 2 inh inhalation DAILYPRN PRN axniety/stress 08/31/24
alprazolam 0.5 mg tablet (Xanax) 0.5 mg PO DAILY 08/31/24
fish, borage, flaxseed oils-omega 3,6,9 comb no.1 1,200 mg capsule ([place] 3-6-9) 1 cap PO DAILY 08/31/24
minoxidil 2.5 mg tablet 1.25 mg PO DAILY 08/31/24
pygeum africanum 50 mg capsule 250 mg PO DAILY 08/31/24
therapeutic multivitamin 1 tab PO DAILY 08/31/24
turmeric 400 mg capsule 500 mg PO DAILY 08/31/24
vitamins A,C,Q-otky-dletrb 2,148 mcg-113 mg-45 mg-17.4 mg tablet (PreserVision AREDS) 1 tab PO DAILY 08/31/24
Review of Systems
-
History Source: Patient
A 12 point ROS was completed and negative except as noted: Yes
Constitutional: Denies Fever
Respiratory: Denies Cough or Trouble Breathing
Cardiac: Denies Chest Pain or Palpitations
Abdomen/GI: Reports See HPI
Physical Exam
Vital Signs
Vital Signs
Temp Pulse Resp BP Pulse Ox
99.0 F 87 15 168/101 99
08/31/24 20:31 08/31/24 19:45 08/31/24 19:45 08/31/24 19:42 08/31/24 19:45
Physical Exam
General: Conversant and Other (Appears pale)
HEENT: NormoCephalic, Anicteric and Atraumatic
Respiratory: Clear and Non Labored Respirations
Cardiac: S1/S2 and Regular Rhythm
GI: Soft, Non Tender and Non Distended
Rectal: Deferred by Provider
Musculoskeletal: No Clubbing, No Cyanosis and No Edema
Skin: Warm and Dry
Neuro: Awake, Alert, Oriented and Nonfocal/grossly intact
Psych: Calm
Laboratory Results
-
08/31/24 15:09
08/31/24 15:09
Laboratory Results
Total Bilirubin 0.5 mg/dl (0.2-1.3) 08/31/24 15:09
AST 29 U/L (17-59) 08/31/24 15:09
ALT 45 U/L (0-50) 08/31/24 15:09
Alkaline Phosphatase 56 U/L (38-126) 08/31/24 15:09
Lipase 76 U/L (23-300) 08/31/24 15:09
Data Reviewed
-
Lab Data: Labs Reviewed by me
Impression/Plan
-
Nausea / Vomiting secondary to Enterocolitis, likely infectious in nature
-Continue Zosyn
-Allow sips of clears
-If patient develops diarrhea check stool studies
-Consult GI
Hyperglycemia, no prior history of diabetes
-Check HgbA1c
Essential Hypertension
-BP running high due to missed medications
-Give hydralazine 5mg IV x one dose now
-Continue amlodipine and metoprolol
Hyperlipidemia
Supraventricular Tachycardia s/p Ablation
-Continue metoprolol
Generalized Anxiety Disorder
-Continue Xanax as prior to admission
Major Depressive Disorder
-Continue Bupropion
DVT proph: Lovenox
Code Status: Full Code
--- NOTE | 2024-08-31 21:45 | W.PN.UPDATE ---
Update Note
Progress Note Update
This is an addendum to H&P written by Luz Elena Wilkerson on 08/31/2024.� Patient seen examined independent with PA.
38-year-old male past medical history of hypertension, hyperlipidemia, SVT status post ablation, anxiety, cyclical vomiting syndrome, prior marijuana use 3 months ago, presenting with persistent vomiting for 2 days with abdominal discomfort.� No
fever or diarrhea.
Labs show leukocytosis.
CT abdomen pelvis shows mild infectious/inflammatory enterocolitis.�
Patient with likely infectious enterocolitis.� NPO.� IV fluids.� Zosyn.� Check stool studies if able although no diarrhea currently.� GI consulted.
[2024-08-31] MEDS: APRESOLINE 5 MG IV (22:19)
[2024-08-31] MEDS: OFIRMEV 100 IV (22:21)
[2024-08-31] MEDS: ZOFRAN 4 MG IV (22:29)
[2024-09-01] VITALS: BP 172/104
[2024-09-01 00:16] VITALS: BP 123/98; BMI 29.7
[2024-09-01] MEDS: NSS 1000 IV ×2 (00:31→11:28)
[2024-09-01] MEDS: REGLAN 10 MG IV (00:32)
--- NOTE | 2024-09-01 00:45 | PTCARENOTE ---
Addendum entered by Molly Mendieta RN 09/01/24 01:30:
patient is sleeping at this time. Administered Tigan as ordered.
Addendum entered by Molly Mendieta RN 09/01/24 01:29:
0100- patient c/o very nauseated/ dry heaving after Reglan. updated ALEXIS.
Original Note:
Patient arrived from ED. still very nauseous . Patient has Zofran ordered and patient is saying that is not helping him (had Zofran in the ED). ALEXIS Harrell made aware. new order for Reglan IV obtained
[2024-09-01] MEDS: TIGAN 200 MG IM (01:09)
[2024-09-01] MEDS: ZOSYN 50 IV ×3 (01:15→14:02)
[2024-09-01] MEDS: PEPCID 20 MG IV (04:38)
[2024-09-01] MEDS: FLUSH (NSS) 1 FLUSH IV (04:39)
--- NOTE | 2024-09-01 06:15 | PTCARENOTE ---
GI Consult notified via TT.
--- NOTE | 2024-09-01 06:35 | CON.GI ---
Addendum entered and electronically signed by Santana Fields MD 09/01/24 10:36:
I saw and examined the patient.
The PA's note was reviewed and I agree with the note.
Comment:
38 year-old male with h/o HTN, SVT s/p ablation, anxiety, cyclical vomiting vs hyperemesis cannabis (stopped using approximately 3 months ago) who p/w nausea/vomiting.
Impression / Rec:
1. Nausea/vomiting - he reports recent illness w/ fevers, chills and a pustular exudate on his tonsil tx w/ amoxicillin. He felt better and had soup/pizza which was followed by acute onset of nausea/vomiting. CT abd showed mild
infections/inflammatory enterocolitis. Low grade fever (99) w/ leukocytosis (23.4k). Suspect ? viral gastroenteritis, although pt denies diarrhea. When seen, he was already feeling improved, no further nausea/vomiting and felt hungry, wanted to
try CLD. Agree w/ supportive mx, stool studies if he develops diarrhea. Ok to d/c home if he tolerates diet. GI s/o.
Original Note:
Consultation
-
Date/Time Consultation Requested: 09/01/2416
Date/Time Consultation Performed: 09/01/24619
Requesting Provider: ASHLEY Agudelo
Performing Provider: / ALEXIS Scott
Reason for Consultation: N/V, enterocolitis
Medical History
Chief Complaint / HPI
Chief Complaint: intractable nausea/vomiting
History of Present Illness:
38-year-old male with a past medical history significant for HTN, SVT s/p ablation, anxiety, depression, hx cyclical vomiting secondary to marijuana (stopped using approximately 3 months ago), krysten esophagitis (01/2022 and in 06/2022) who
presented to the emergency room with nausea and vomiting. We are asked to evaluate for the same. The patient states that approximately a week ago he started with fevers, chills and a pustular exudate on his tonsil. He saw his PCP and was
prescribed amoxicillin. He states that the fevers and chills went away. He has a chronic history of 'kissing tonsils' and follows up with ENT routinely. He states that he finally started feeling better and had some soup and ate a pizza from [employer].
A couple hours later had acute onset of 'violent nausea and vomiting' he states that they vomiting was solid food. With multiple episodes. He never had any diarrhea. Because of persistent symptoms he came to the emergency room for further
evaluation. We are asked to evaluate for nausea vomiting and enterocolitis seen on CT imaging. the patient has a history of cyclical vomiting in the past thought to be secondary to marijuana however he stopped this 3 months ago. He will
occasionally have some nausea without any vomiting. He states this has improved. He does have a history of Krysten esophagitis. Currently he does have oral thrush on his tongue. He has not been able to eradicate this. He has a history of
constipation recently and has not had any bowel movements. CT of the abdomen and pelvis with IV contrast shows mild wall thickening of the colon from the hepatic flexure to the sigmoid colon. Small bowel wall thickening suspected. There is lack
of oral contrast. Findings suggest a mild infectious or inflammatory enterocolitis. The patient has been unable to give us a bowel movement. Patient came in with Tmax of 99.0.He does have a leukocytosis of 23.4 up from 22.4, no lactic acid was
performed. The patient has had dry heaves but no episodes of vomiting overnight. He has tolerated some sips of clear liquids. He has some mild abdominal cramping but no abdominal pain. Currently he denies any fevers, chills, melena,
hematochezia, dysphagia or odynophagia. No early satiety or unintentional weight loss. He has plans on trying to go on a GLP-1 for an elevated glucose and weight loss.
Past Medical History
Past Medical History: Arrhythmias (hx SVT s/p ablation), GERD, HTN, Hypercholesterolemia (hypertriglyceridemia), Psychiatric (anxiety/depression) and Other (intractable nausea/vomiting likely due to marijuana, fatty liver, hx pancolitis, insomnia)
Past Surgical History: Cardiac (cardiac ablation) and Other (adenoidectomy, septoplasty)
Social History
Tobacco: Non-Smoker
Alcohol: None
Drug: Marijuana (stopped 3 months ago)
Personal: Single
Living: With Family
Family History
Family History: Adopted
Allergies / Home Medications
Allergy/AdvReac Type Severity Reaction Status Date / Time
No Known Allergies Allergy Verified 08/31/24 14:59
�Medication �Instructions �Recorded
doxylamine succinate 25 mg tablet 25 mg PO HS Sleep 04/14/17
(Unisom (doxylamine))
alprazolam 1 mg tablet 1 mg PO HS Mental Health/Anxiety 01/25/20
finasteride 1 mg tablet 1 mg PO DAILY Androgenetic 01/25/20
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
fluticasone propionate 50 1 spray intranasal BID Allergies 01/25/20
mcg/actuation nasal
spray,suspension
amlodipine 2.5 mg tablet (Norvasc) 2.5 mg PO DAILY Heart 12/12/21
disease/condition
metoprolol succinate 100 mg 100 mg PO DAILY Blood Pressure 06/20/22
tablet,extended release 24 hr
bupropion HCl 300 mg 24 hr tablet, 300 mg PO DAILY Depression 12/28/23
extended release
emtricitabine 200 mg-tenofovir 1 tab PO DAILY pre-exposure 12/28/23
disoproxil fumarate 300 mg tablet prophylaxis
(Truvada)
Medical Marijuana 2 inh inhalation DAILYPRN PRN 08/31/24
axniety/stress
alprazolam 0.5 mg tablet (Xanax) 0.5 mg PO DAILY 08/31/24
fish, borage, flaxseed oils-omega 1 cap PO DAILY 08/31/24
3,6,9 comb no.1 1,200 mg capsule
([place] 3-6-9)
minoxidil 2.5 mg tablet 1.25 mg PO DAILY 08/31/24
pygeum africanum 50 mg capsule 250 mg PO DAILY 08/31/24
therapeutic multivitamin 1 tab PO DAILY 08/31/24
turmeric 400 mg capsule 500 mg PO DAILY 08/31/24
vitamins A,C,J-oavw-mrkugp 2,148 1 tab PO DAILY 08/31/24
mcg-113 mg-45 mg-17.4 mg tablet
(PreserVision AREDS)
Review of Systems
-
All other systems: A 12 pt ROS was Negative except as stated above in HPI
Vital Signs
Temp Pulse Resp BP Pulse Ox
98.4 F 108 18 123/98 97
09/01/24 00:16 09/01/24 00:16 09/01/24 00:16 09/01/24 00:16 09/01/24 00:16
Physical Exam
Exam
General: No Apparent Distress
HEENT: Anicteric
Respiratory: Clear
Cardiac: Regular Rhythm
GI: Soft, Non Tender, Non Distended and Normal Bowel Sounds
Musculoskeletal: No Edema
Skin: Warm and Dry
Neuro: AO x 3
Psych: Calm
Results
WBC 22.4 10^3/uL (4.8-10.8) H 08/31/24 15:09
Hgb 15.5 g/dL (13.0-18.0) 08/31/24 15:09
Hct 43.2 % (39.0-52.0) 08/31/24 15:09
MCV 90.0 fL (80.0-94.0) 08/31/24 15:09
Plt Count 307 10^3/uL (130-400) 08/31/24 15:09
Absolute Neuts (auto) 20.6 10^3/uL (1.4-6.5) H 08/31/24 15:09
Sodium 139 mmol/L (135-145) 08/31/24 15:09
Potassium 4.3 mmol/L (3.5-5.1) 08/31/24 15:09
Chloride 104 mmol/L (98-107) 08/31/24 15:09
Carbon Dioxide 21 mmol/L (22-30) L 08/31/24 15:09
BUN 16 mg/dl (9-20) 08/31/24 15:09
Creatinine 0.8 mg/dL (0.7-1.3) 08/31/24 15:09
Calcium 9.7 mg/dl (8.4-10.2) 08/31/24 15:09
Total Bilirubin 0.5 mg/dl (0.2-1.3) 08/31/24 15:09
AST 29 U/L (17-59) 08/31/24 15:09
ALT 45 U/L (0-50) 08/31/24 15:09
Alkaline Phosphatase 56 U/L (38-126) 08/31/24 15:09
Lipase 76 U/L (23-300) 08/31/24 15:09
Diagnostic Image Results:
CT abdomen and pelvis with IV contrast:
CT findings suggest a mild infectious or inflammatory enterocolitis.
Prior GI Procedures:
EGD: 02/11/22 Dr. Hairston: �Normal esophagus. Normal stomach. Biopsied. Normal examined duodenum. Biopsied. Biopsies were taken with a cold forceps for evaluation of eosinophilic esophagitis. Bx showing acute esophagitis and krysten. Negative for
EoE, celiac, or H pylori.
Colonoscopy: 02/11/22 Dr. Hairston: The entire examined colon is normal. Biopsied. The examined portion of the ileum was normal. Biopsied. colon bx negative for colitis
Assessment / Plan
-
38-year-old male with a past medical history significant for HTN, SVT s/p ablation, anxiety, depression, hx cyclical vomiting secondary to marijuana (stopped using approximately 3 months ago), krysten esophagitis (01/2022 and in 06/2022) who
presented to the emergency room with nausea and vomiting. We are asked to evaluate for the same. The patient states that approximately a week ago he started with fevers, chills and a pustular exudate on his tonsil. He saw his PCP and was
prescribed amoxicillin. He states that the fevers and chills went away. He has a chronic history of 'kissing tonsils' and follows up with ENT routinely. He states that he finally started feeling better and had some soup and ate a pizza from [employer].
A couple hours later had acute onset of 'violent nausea and vomiting' he states that they vomiting was solid food. With multiple episodes. He never had any diarrhea. Because of persistent symptoms he came to the emergency room for further
evaluation. We are asked to evaluate for nausea vomiting and enterocolitis seen on CT imaging. WBC 23.4, hemoglobin 15.0, hematocrit 42.7, platelets 324, Sodium 139, potassium 4.3, chloride 104, CO2 21, BUN 16, creatinine 0.8, glucose 253, total
bilirubin 0.5, AST 29, ALT 45, alk phos 56, lipase 76, UA 2+ ketones few bacteria, 4+ glucose. UDS positive for benzodiazepines. CT of the abdomen and pelvis with IV contrast only shows findings suggesting a mild infectious or inflammatory
enterocolitis. Patient's physical exam shows presence of mild oral thrush on tongue.Patient does get relief from hot shower for symptom of nausea. He has had 3 hot showers while here however is negative for cannabis and has not used in 3 months.
Impression:
Nausea/vomiting
Enterocolitis seen on CT imaging
Leukocytosis
Oral thrush
History of Krysten esophagitis on EGD in past
Plan:
- Antiemetics, patient prefers Zofran
- Continue Pepcid BID
- Nystatin swish and swallow 4 times daily x 14 days
- Discussed with patient follow-up with infectious disease as with persistent Krysten despite treatment with nystatin as well as Diflucan as an outpatient
- If with bowel movement will need to check stool for C. difficile, stool cultures, ova and parasite, cryptosporidia/microsporidia
- Since patient with leukocytosis and left shift we will defer to internal medicine for workup. Patient does state that he had a exudative tonsillar area a week ago. I did look in eCW and that prescription was apparently supposed to start on
08/30/2024 by his PCP. Therefore patient could not have completed the prescribed amoxicillin of 875 p.o. twice daily x 10 days. Would look into this further.
- Okay for clears and advance diet to soft/bland diet as tolerated.
- Further recommendations to be forthcoming.
-
-
Thank you for consultation and allowing me to participate in the patient's care. Please call the office administration instructor GI physician during the after hours with any questions or concerns.
[2024-09-01 06:59] LABS: Hematocrit 42.7 % (39.0-52.0); Mean Corp Hgb Conc. 35.1 g/dL (33.0-37.0); Mean Corpuscular Hgb 32.3 pg (27.0-31.0); Mean Platelet Volume 9.5 fL (7.4-10.4); Platelet Count 324 10^3/uL (130-400); Red Blood Cell Count 4.64 10^6/uL (4.70-6.10); Red Cell Dist. Width 12.2 % (11.5-14.5); White Blood Cell Count 23.4 10^3/uL (4.8-10.8)
[2024-09-01 07:27] LABS: Blood Urea Nitrogen 7 mg/dl (9-20); Calcium 9.3 mg/dl (8.4-10.2); Carbon Dioxide 24 mmol/L (22-30); Chloride 106 mmol/L (98-107); Estimated Creatinine Clearance > 125 ml/min; Glucose 141 mg/dl (70-99); Magnesium 1.8 mg/dl (1.6-2.3); Potassium 4.3 mmol/L (3.5-5.1); Sodium 141 mmol/L (135-145); eGFR > 60.00
[2024-09-01] MEDS: XANAX 0.5 MG PO (07:40)
[2024-09-01] MEDS: PROTONIX IV 40 MG IV (07:40)
[2024-09-01] MEDS: NORVASC 2.5 MG PO (07:40)
[2024-09-01] MEDS: WELLBUTRIN XL (24 hour extended release) 300 MG PO (07:40)
[2024-09-01] MEDS: TOPROL XL 100 MG PO (07:40)
[2024-09-01] MEDS: NSS (PRESERVATIVE FREE) 10 ML IV (07:40)
[2024-09-01 08:17] LABS: Glycohemoglobin (HgbA1c) 5.4 % (4.0-5.6)
[2024-09-01 08:25] VITALS: BP 125/84
[2024-09-01] MEDS: MYCOSTATIN ORAL SUSPENSION 5 ML PO ×2 (08:32→13:49)
[2024-09-01] MEDS: NSS IV (09:55)
--- NOTE | 2024-09-01 10:31 | W.PN.HOSP.TC ---
Addendum entered and electronically signed by Guy Henry MD 09/01/24 15:16:
Patient is improving on tolerating solid diet. His symptoms were upper GI and never had diarrhea and not having any now. Suspected some form of either viral gastroenteritis or foodborne. Discussed with GI no indication for antibiotics from their
standpoint as well. Will discharge patient home today.
Original Note:
Today's Communication/Plan
-
Continue with Zosyn and nystatin
Advance diet per GI
Assessment / Plan
Assessment / Plan
Nausea / Vomiting secondary to Enterocolitis, likely infectious in nature
-Continue Zosyn
- Continue clear liquid diet per GI
-If patient develops diarrhea check stool studies
- Appreciate GI input
Hyperglycemia, no prior history of diabetes
-Check HgbA1c
Thrush involving the tongue-continue with nystatin initiated by GI
Essential Hypertension
-BP running high due to missed medications
-Continue amlodipine and metoprolol
- blood pressure under goal now
Hyperlipidemia
Supraventricular Tachycardia s/p Ablation
-Continue metoprolol
Generalized Anxiety Disorder
-Continue Xanax as prior to admission
Major Depressive Disorder
-Continue Bupropion
DVT proph: Lovenox
Code Status: Full Code
Anticipated Discharge: Within 24 hours
Subjective/Interval History
-
Date of Service: September 01, 2024
Denies any abdominal pain. Not feeling nauseous today. Is on clear liquids tolerating. Denies any diarrhea with this episode. He thinks it is a bad sandwich he ate on Tuesday from [employer].
Denies any chronic GI symptoms.
He seems to be troubled with intermittent thrush. He is HIV -3 months ago.
Objective Data
-
Labs:
Laboratory Results
09/01/24
06:31
WBC 23.4 H
Hgb 15.0
Hct 42.7
Plt Count 324
Sodium 141
Potassium 4.3
Chloride 106
Carbon Dioxide 24
BUN 7 L
Creatinine 0.7
Glucose 141 H
Calcium 9.3
Vital Signs:
Vital Signs
Temp Pulse Resp BP Pulse Ox
98.7 F 93 16 125/84 98
09/01/24 08:25 09/01/24 08:25 09/01/24 08:25 09/01/24 08:25 09/01/24 08:25
I&O
08/31/24 09/01/24 09/02/24
06:59 06:59 06:59
Intake Total 750 / 750
Balance 750 / 750
Review of Systems
-
Constitutional: Denies Fever or Chills
EENT: Denies Sore Throat
Respiratory: Denies Cough or Trouble Breathing
Cardiac: Denies Chest Pain
Neuro: Denies Dizzy
Physical Exam
-
General: Comfortable
HEENT: Other (Slight thrush only noted on the posterior tongue but oral cavity without any thrush.)
Respiratory: Non Labored Respirations; Negative Accessory Resp Muscle Use
Cardiac: Regular Rhythm and S1/S2
GI: Soft and Nontender
Neuro: AO x 3
Psych: Calm
Data Reviewed
-
Labs: Labs Reviewed by me
--- NOTE | 2024-09-01 11:19 | CM ---
Addendum entered by Daquan Santiago 09/01/24 15:29:
Discharge order noted. Pt is aware and he stated his mother will transport home.
D/C plan: home with parents no needs. Mother to transport.
Original Note:
CM following re: discharge planning.
Reviewed pt's chart, met with pt.
Pt is a 38 year old male, admitted with primary dx of Nausea / Vomiting secondary to Enterocolitis
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 Pt reports he stopped drinking since last admission and doing very well.
D/C plan: home with parents no needs. mother to transport.
CM will follwo with discharge plan updates as needed.
[2024-09-01] MEDS: ZOFRAN 4 MG IV (13:26)
--- NOTE | 2024-09-01 13:29 | PTCARENOTE ---
Pt vomited small amount after eating solid food for lunch.
[2024-09-01 15:20] VITALS: BP 126/80
--- NOTE | 2024-09-01 15:58 | W.DCSUMMARY ---
Discharge Summary
Discharge Data
Date of Admission: 08/31/24
Date of Discharge: 09/01/24
-
Pending Results: No
Hospital Course
Primary diagnosis:
Acute enterocolitis
Secondary diagnosis:
Essential hypertension
Supraventricular tachycardia status post ablation
Hospital course:
He presented with acute onset of nausea and vomiting. He thinks it was from something he ate in [facility] on Tuesday. A week ago he had a fever, chills and pustular exudate on the tonsils and got prescribed amoxicillin. He apparently was feeling better
but then he had soup and ate pizza from [facility] and then started to have violent nausea and vomiting. He had multiple episodes but never had diarrhea. Since his symptoms persisted he came to the ER. CT imaging raises concern for enterocolitis. He
had elevated white count. He was nontoxic. His abdomen was benign.
He was treated as possible infectious enterocolitis versus foodborne. He had quick resolution of his symptoms and was tolerating diet. He had no nausea vomiting here. He had no diarrhea. He was seen by GI who said may be viral in nature at this
point. No recommendations for antibiotic. He was discharged home on low residue diet and was given antiemetics for couple of days.
His tongue had traces of thrush. Nothing in the oral pharyngeal cavity. He apparently had recurrent issues of thrush in the past. HIV testing apparently was -3 months ago. He was given oral nystatin.
Consultants on board:
Gastroenterology-Santana Sanz
Discharge Plan
-
Patient Disposition: Home (Routine Discharge)
Discharge Diagnosis/Procedures: Nausea and vomiting suspected infectious enterocolitis
Condition: Good
Diet: Other diet
Additional Diets: Low residue diet for the next 2 to 3 days and resume your regular diet
Activity: As tolerated
Driving Restrictions: As prior to admission
Bathing Restrictions: None
Activity Restrictions/Additional Instructions:
If you develop recurrence of nausea, vomiting ,abdominal pain, diarrhea, blood in the stools, fever or chills to return back to ER
Referrals:
UNKNOWN - PT DOES,NOT KNOW [Family Provider] - in one week
Prescriptions:
New
nystatin 100,000 unit/mL Suspension
5 ml PO QID Qty: 250 0RF
Rx Instructions:
Use for 5 days
ondansetron 4 mg tablet,disintegrating
4 mg PO Q8H PRN (Reason: nausea and vomiting) 3 Days Qty: 12 0RF
Continued
Unisom (doxylamine) 25 MG tablet
25 mg PO HS
alprazolam 1 MG tablet
1 mg PO HS
fluticasone propionate 1 SPRAY spray,suspension
1 spray intranasal BID
finasteride 1 MG tablet
1 mg PO DAILY
amlodipine [Norvasc] 2.5 mg Tablet
2.5 mg PO DAILY
metoprolol succinate 100 mg tablet extended release 24 hr
100 mg PO DAILY
bupropion HCl 300 mg Tablet Extended Release 24 Hr
300 mg PO DAILY
emtricitabine-tenofovir (TDF) [Truvada] 200-300 mg Tablet
1 tab PO DAILY
therapeutic multivitamin Tablet
1 tab PO DAILY
minoxidil 2.5 mg Tablet
1.25 mg PO DAILY
alprazolam [Xanax] 0.5 mg Tablet
0.5 mg PO DAILY
pygeum africanum 50 mg Capsule
250 mg PO DAILY
PreserVision AREDS 2,148 mcg-113 mg-45 mg-17.4mg Tablet
1 tab PO DAILY
[place] 3-6-9 1,200 mg Capsule
1 cap PO DAILY
turmeric 400 mg Capsule
500 mg PO DAILY
Medical Marijuana
2 inh inhalation DAILYPRN PRN (Reason: axniety/stress)
Discharge Orders:
Discharge Patient (As Directed); Ordered 09/01/24
Ordered By: Guy Henry
Discharge Date and Time
Discharge Date/Time: 09/01/24 15:50
Print Language: BELARUSIAN
== END 2024-09-01 15:50 | disposition home or self-care (01) | DRG 392 ==
LOC: 1 ACUTE 22:00
PROVIDERS: Physician Assistant; Physician Assistant Medical; ADMITTING PHYSICIAN Hospitalist; ATTENDING PHYSICIAN Internal Medicine; CONSULT PHYSICIAN Internal Medicine Gastroenterology; EMERGENCY PHYSICIAN Emergency Medicine
DX: A08.4 Viral intestinal infection, unspecified (principal); B37.0 Candidal stomatitis; I10 Essential (primary) hypertension; F41.1 Generalized anxiety disorder; G47.33 Obstructive sleep apnea (adult) (pediatric); D72.829 Elevated white blood cell count, unspecified; E86.0 Dehydration; E78.00 Pure hypercholesterolemia, unspecified; E78.1 Pure hyperglyceridemia; F12.90 Cannabis use, unspecified, uncomplicated; F32.9 Major depressive disorder, single episode, unspecified; R73.9 Hyperglycemia, unspecified; K76.0 Fatty (change of) liver, not elsewhere classified
CPT/HCPCS: 74177; 80048; 80053; 80306; 80307; 81003; 81015; 82962; 83036; 83690; 83735; 85025; 85027; 93005; 96361; 96365; 96375; 99285; Q9967

== ENCOUNTER 2024-12-04 03:46 | Observation (INO) | payer OTHER, SELFPAY ==
[2024-12-03 21:56] VITALS: BP 167/117
[2024-12-03 22:19] LABS: Hematocrit 45.7 % (39.0-52.0); Hemoglobin 16.4 g/dL (13.0-18.0); Mean Corp Hgb Conc. 35.9 g/dL (33.0-37.0); Mean Corpuscular Volume 89.3 fL (80.0-94.0); Nucleated Red Blood Cells % 0 % (-); Platelet Count 341 10^3/uL (130-400); Red Cell Dist. Width 11.9 % (11.5-14.5)
[2024-12-03 22:36] LABS: AST (SGOT) 27 U/L (17-59); Albumin 5.7 g/dl (3.5-5.0); Alkaline Phosphatase 40 U/L (38-126); Blood Urea Nitrogen 20 mg/dl (9-20); Calcium 10.8 mg/dl (8.4-10.2); Carbon Dioxide 14 mmol/L (22-30); Chloride 103 mmol/L (98-107); Glucose 254 mg/dl (70-99); Lipase 90 U/L (23-300); Potassium 4.6 mmol/L (3.5-5.1); Sodium 136 mmol/L (135-145); Total Protein 9.3 g/dl (6.3-8.2); eGFR > 60.00
[2024-12-03 22:37] VITALS: BP 145/101
[2024-12-03 22:46] LABS: ALT (SGPT) 31 U/L (0-50)
[2024-12-03] MEDS: NSS 1000 IV (22:49)
[2024-12-03] MEDS: TORADOL 15 MG IV (22:50)
[2024-12-03] MEDS: ZOFRAN 4 MG IV (22:50)
[2024-12-03 23:00] VITALS: BP 151/101
[2024-12-03 23:42] VITALS: BP 146/103
[2024-12-04] VITALS (16 sets, daily range): BP systolic 103–166; BP diastolic 67–116
[2024-12-04] MEDS: NSS 1000 IV (00:10)
--- NOTE | 2024-12-04 00:15 | ED.GENMED ---
History of Present Illness
General
Chief Complaint: Abdominal Pain
Source: patient
Time Seen by Provider: 12/03/24 23:48
History of Present Illness
History of Present Illness:
This patient is a 39-year-old male presents emergency department with recurrent episodes of nausea and vomiting that started over the weekend and continue. The symptoms are similar to prior episodes that he has had in the past, most recently in August
2024. Patient states he has not used marijuana in over 2 months. Approximately 2 months ago he started Zepbound and he describes a 20 pound weight loss. He has been tolerating the medication without ALTE. He denies associated fever, chills,
chest pain, shortness of breath. He has generalized abdominal discomfort associated with the nausea and vomiting. He did note 1 episode of what appeared to be coffee-ground emesis. He does take an antacid but not regularly. He denies back pain,
diarrhea. He is still urinating without pain or blood. He denies black stool or bright red blood per rectum.
Past History
Past History
ED Past Medical History: Arrthythmia (SVT), HTN, Psychiatric (Anxiety) and Other (Sleep apnea, Colitis)
ED Past Surgical History: Cardiac (Ablation for SVT) and Other (Deviated septum repair)
Social History
Tobacco: Non-smoker
Alcohol: None
Drug: Former user (Former user of marijuana)
Personal: Single
Living: with family
Phy Exam
Physical Exam
Physical Exam:
GENERAL: Alert , in no apparent distress
EYE: pupils equal and reactive
NECK: Supple, no significant adenopathy.
ENT: o/p clr, mm dry
CARDIAC: Regular rate and rhythm .
LUNGS: Clear breath sounds bilaterally, no acute respiratory distress, no wheezes/rales/rhonchi
ABDOMEN: Soft, diffuse nonspecific tenderness, no r/g, no cvat
NEUROLOGICAL: Alert and oriented, no focal neuro deficits
SKIN: Warm and dry, skin intact.
MUSCULOSKELETAL: No edema, well perfused.
PSYCH: Normal and appropriate interaction.
Course
Orders/Labs/Results
Orders:
Orders
12/03/24 22:04
IV Insert/Care/Rem.- Treatment PRN
Urinalysis Reflex To Culture Urgent
Date Specimen was Collected: 12/03/24
Time Specimen was Collected: 22:04
12/03/24 22:13
B-Hydroxybutyrate Urgent
Comment: ADDED
Complete Blood Count/With Diff Urgent
Comprehensive Metabolic Panel Urgent
Lipase Urgent
12/03/24 22:44
0.9% Sodium Chloride 1000 ml [Nss] 1,000 ml IV BOLUS
Ketorolac [Toradol] 15 mg IV NOW STA
Ondansetron Injectable [Zofran] 4 mg IV NOW STA
12/03/24 22:46
Ketorolac [Toradol] 15 mg .ROUTE .STK-MED ONE
Ondansetron Injectable [Zofran] 4 mg .ROUTE .STK-MED ONE
12/03/24 23:51
0.9% Sodium Chloride 1000 ml [Nss] 1,000 ml IV BOLUS
12/04/24 00:04
Pantoprazole [Protonix IV] 40 mg IV NOW STA
12/04/24 00:10
CT Abd/Pel (IV only)-DH only Urgent
Comment:
Reason For Exam: wbc elevation, repeatd vomiting, abd pain
12/04/24 00:14
Prochlorperazine [Compazine] 10 mg IV NOW STA
12/04/24 00:45
0.45% Sodium Chloride 1000 ml [0.45%NaCl] 1,000 ml Sodium Bicarbonate 75 meq IV 125 mls/hr
Abnormal Lab Results
12/03/24
22:13
WBC 20.4 H 10^3/uL
(4.8-10.8)
MCH 32.0 H pg
(27.0-31.0)
Abs Immat Gran (auto) 0.1 H 10^3/uL
(0-0.05)
Absolute Neuts (auto) 18.2 H 10^3/uL
(1.4-6.5)
Absolute Lymphs (auto) 0.9 L 10^3/uL
(1.2-3.4)
Absolute Monos (auto) 1.1 H 10^3/uL
(0.1-0.6)
Immature Gran % 0.6 H %
(0-0.5)
Neutrophils % 89.2 H %
(42.2-75.2)
Lymphocytes % 4.6 L %
(20.5-51.1)
Carbon Dioxide 14 L* mmol/L
(22-30)
Glucose 254 H mg/dl
(70-99)
Calcium 10.8 H mg/dl
(8.4-10.2)
Total Protein 9.3 H g/dl
(6.3-8.2)
Albumin 5.7 H g/dl
(3.5-5.0)
12/03/24 22:13
12/03/24 22:13
Vital Signs
Initial and Last Documented VS:
Initial Vital Signs
Pulse Resp BP Pulse Ox
92 24 167/117 99
12/03/24 21:56 12/03/24 21:56 12/03/24 21:56 12/03/24 21:56
Last Documented Vital Signs
Pulse Resp BP Pulse Ox
105 17 109/72 97
12/04/24 01:45 12/04/24 01:45 12/04/24 01:30 12/04/24 01:45
*Pulse Oximetry
SaO2: 99
Oxygen Mode of Delivery: Room air
Update Note
Update Note:
Patient presents to the Emergency Department with ___nausea vomiting abdominal discomfort
Number and Complexity of Problems Addressed at the Encounter
� Chronic conditions affecting care:
� Acute Exacerbation and/or Progression of Chronic Illness:
� Differential Diagnosis includes: But not limited to CHS, CVS, medication reaction, bowel obstruction, etc. etc.
Amount and/or Complexity of Data to be Reviewed and Analyzed
� I performed an independent evaluation of and my interpretation is:
EKG: Read by me, normal sinus rhythm, normal rate, normal axis, no acute ischemia. QTc noted to be slightly elongated at 481
CT: Read by vision no acute abnormality within the abdomen or pelvis no bowel obstruction normal gallbladder and appendix.
Xrays:
Laboratory Studies: Severe metabolic acidosis noted with associated hyperglycemia, suspect related to severe dehydration. Lipase normal
Other:
� Review of other/old records reveals:
� Clinical information was obtained by an independent historian:
� Prescriptions/Medications Considered but not given:
� Further testing considered but not performed:
Risk of Complications and/or Morbidity or Mortality of Patient Management
� Social determinants of health affecting care:
� Discussion with other providers (PCP, Hospitalists, Consultants, etc):
� Escalation of care including admission/observation vs risk of discharge considered: In consideration of QTc, patient given Compazine as an antiemetic at this time. I have also started continued IV fluids and a bicarb drip.
Given his diffuse abdominal discomfort and associated leukocytosis, will obtain a CT scan to rule out acute infectious process as a cause of his symptoms although more likely related to ChS/CVS.
2:[address] read NAD Case discussed with hospitalist via [place] text for admission.
ED Attending Note
-
Portions of this chart may have been created with voice recognition software.� Occasional wrong word or��sound alike� substitutions may have occurred due to the inherent limitations of voice recognition software.
Discharge Plan
Departure
Patient Disposition: Admit
Date of Disposition: 12/04/24
Time of Disposition: 02:07
Admit to: Telemetry
Presentation/result/management discussed w/ accepting MD/DO: Hospitalist
Condition: Fair
Discharge Problem:
Intractable nausea and vomiting
Prescriptions:
No Action
Unisom (doxylamine) 25 MG tablet
25 mg PO HS
alprazolam 1 MG tablet
1 mg PO HS
fluticasone propionate 1 SPRAY spray,suspension
1 spray intranasal BID
finasteride 1 MG tablet
1 mg PO DAILY
amlodipine [Norvasc] 2.5 mg Tablet
2.5 mg PO DAILY
metoprolol succinate 100 mg tablet extended release 24 hr
100 mg PO DAILY
bupropion HCl 300 mg Tablet Extended Release 24 Hr
300 mg PO DAILY
emtricitabine-tenofovir (TDF) [Truvada] 200-300 mg Tablet
1 tab PO DAILY
therapeutic multivitamin Tablet
1 tab PO DAILY
minoxidil 2.5 mg Tablet
1.25 mg PO DAILY
alprazolam [Xanax] 0.5 mg Tablet
0.5 mg PO DAILY
pygeum africanum 50 mg Capsule
250 mg PO DAILY
PreserVision AREDS 2,148 mcg-113 mg-45 mg-17.4mg Tablet
1 tab PO DAILY
[place] 3-6-9 1,200 mg Capsule
1 cap PO DAILY
turmeric 400 mg Capsule
500 mg PO DAILY
Medical Marijuana
2 inh inhalation DAILYPRN PRN (Reason: axniety/stress)
nystatin 100,000 unit/mL Suspension
5 ml PO QID Qty: 250 0RF
Rx Instructions:
Use for 5 days
ondansetron 4 mg tablet,disintegrating
4 mg PO Q8H PRN (Reason: nausea and vomiting) 3 Days Qty: 12 0RF
Referrals:
Lázaro Quezada MD [Family Provider, Family Practice]
Interventions
Interventions:
*Risk Screen - Suicide Last Done: 12/03/24 21:56
*General Assessment Last Done: 12/03/24 21:56
*Neglect/Abuse Screening Last Done: 12/03/24 21:56
*ED COVID-19 Vaccine History Last Done: 12/03/24 22:04
[facility] Assessment Last Done: 12/03/24 23:00
Discharge Date and Time
Print Language: DANISH
[2024-12-04] MEDS: PROTONIX IV 40 MG IV (00:28)
[2024-12-04] MEDS: COMPAZINE 10 MG IV ×3 (00:28→16:12)
[2024-12-04] MEDS: SODIUM BICARBONATE 1075 MEQ IV (01:02)
[2024-12-04 02:45] LABS: Urine Character Clear (Clear)
--- NOTE | 2024-12-04 03:05 | HPS.HSE ---
Family Physician
-
Family Physician: Lázaro Quezada
Chief Complaint
-
Abdominal pain
History of Present Illness
This is a 39-year-old male with past medical history significant for SVT status post ablation, hypertension, GERD, hyperlipidemia, cannabis hyperemesis syndrome, who presents to the emergency department with approximately 3 days of abdominal pain
with nausea vomiting.
He reports he has been admitted multiple times for similar episodes. He has been diagnosed with cyclic vomiting syndrome in the past. He he states that his symptoms began suddenly with epigastric discomfort and nausea and then vomiting. He again
denies any diarrhea. He has not been having any fevers or chills. He had no sick contacts and no recent travel. He states he has been on the plan for about 2 months with about 20 pound weight loss. He denies any alcohol use. He denies any
melena or hematochezia. He reports mostly nonbloody and nonbilious emesis with 1 episode of coffee-ground. He has not been able to tolerate p.o. for 3 days now and has been sustaining on sips of water.
He denies any history of diabetes. He is on Truvada for preexposure prophylaxis.
In the ED he has been afebrile, blood pressure was 110/70 with a pulse of 105 satting 97% on room air.
Does have a white count of 20.4, hemoglobin and platelets were normal.
Electrolytes shows a bicarb of 14 but otherwise unremarkable with normal. AGAP 16.5. Creatinine and a glucose of 254.
LFTs were normal, lipase was negative, UA was unremarkable, but hydroxybutyrate was negative.
CT a/p w/o acute intra-abdominal findings.
Medical History
Past Medical History
Past Medical History: Reports Other
Additional Past Medical History:
Essential Hypertension
Hyperlipidemia
Supraventricular Tachycardia s/p Ablation
Cannabis Hyperemesis Syndrome
Generalized Anxiety Disorder
Major Depressive Disorder
Obstructive Sleep Apnea
Past Surgical History: Reports Other
Additional Past Surgical History:
Nasal Septoplasty
Social History
Tobacco: Non-smoker
Alcohol: None
Drug: Other (Prior marijuana use but none in over 3 months)
Family History
Family History: Not pertinent
Allergies / Home Medications
Allergies reflects when Allergies were last updated in [facility].
Home Medications with original date entered in [facility]
Allergy/Medication List:
Allergies
Allergy/AdvReac Type Severity Reaction Status Date / Time
No Known Allergies Allergy Verified 08/31/24 14:59
Home Medications
doxylamine succinate 25 mg tablet (Unisom (doxylamine)) 25 mg PO HS Sleep 04/14/17
alprazolam 1 mg tablet 1 mg PO HS Mental Health/Anxiety 01/25/20
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
fluticasone propionate 50 mcg/actuation nasal spray,suspension 1 spray intranasal BID Allergies 01/25/20
amlodipine 2.5 mg tablet (Norvasc) 2.5 mg PO DAILY Heart disease/condition 12/12/21
metoprolol succinate 100 mg tablet,extended release 24 hr 100 mg PO DAILY Blood Pressure 06/20/22
bupropion HCl 300 mg 24 hr tablet, extended release 300 mg PO DAILY Depression 12/28/23
emtricitabine 200 mg-tenofovir disoproxil fumarate 300 mg tablet (Truvada) 1 tab PO DAILY pre-exposure prophylaxis 12/28/23
Medical Marijuana 2 inh inhalation DAILYPRN PRN axniety/stress 08/31/24
alprazolam 0.5 mg tablet (Xanax) 0.5 mg PO DAILY 08/31/24
fish, borage, flaxseed oils-omega 3,6,9 comb no.1 1,200 mg capsule ([place] 3-6-9) 1 cap PO DAILY 08/31/24
minoxidil 2.5 mg tablet 1.25 mg PO DAILY 08/31/24
pygeum africanum 50 mg capsule 250 mg PO DAILY 08/31/24
therapeutic multivitamin 1 tab PO DAILY 08/31/24
turmeric 400 mg capsule 500 mg PO DAILY 08/31/24
vitamins A,C,O-mnpf-jfymhi 2,148 mcg-113 mg-45 mg-17.4 mg tablet (PreserVision AREDS) 1 tab PO DAILY 08/31/24
Review of Systems
-
History Source: Patient
A 12 point ROS was completed and negative except as noted: Yes
Constitutional: Denies Fever
Respiratory: Denies Cough or Trouble Breathing
Cardiac: Denies Chest Pain or Palpitations
Abdomen/GI: Reports Abdominal Pain, Nausea and Vomiting
: Reports No Symptoms
Musculoskeletal: Reports No Symptoms
Skin: Reports No Symptoms
Neurological: Reports No Symptoms
Endocrine: Reports No Symptoms
Hematologic/Lymphatic: Reports No Symptoms
Psych: Reports No Symptoms
Physical Exam
Vital Signs
Vital Signs
Pulse Resp BP Pulse Ox
105 17 109/72 97
12/04/24 01:45 12/04/24 01:45 12/04/24 01:30 12/04/24 01:45
Physical Exam
General: Conversant and Other (Appears pale)
HEENT: NormoCephalic, Anicteric and Atraumatic
Respiratory: Clear and Non Labored Respirations
Cardiac: S1/S2 and Regular Rhythm
GI: Soft, Non Tender and Non Distended
Rectal: Deferred by Provider
Musculoskeletal: No Clubbing, No Cyanosis and No Edema
Skin: Warm and Dry
Neuro: Awake, Alert, Oriented and Nonfocal/grossly intact
Psych: Calm
Laboratory Results
-
12/03/24 22:13
12/03/24 22:13
Laboratory Results
Total Bilirubin 1.1 mg/dl (0.2-1.3) 12/03/24 22:13
AST 27 U/L (17-59) 12/03/24 22:13
ALT 31 U/L (0-50) 12/03/24 22:13
Alkaline Phosphatase 40 U/L (38-126) 12/03/24 22:13
Lipase 90 U/L (23-300) 12/03/24 22:13
Data Reviewed
-
CT Scan: Report Reviewed by me
Lab Data: Labs Reviewed by me
Old Records: Reviewed
Impression/Plan
-
IMPRESSION:
39 y.o w/ h/o CVS presenting to ED with 3 days of N/V. Nonbillious and non-bloody. Patient unable to tolerate po since. No fevers. He is HD stable but labs notable for small anion gap acidosis. He has urinary ketones suggestive of starvation
keto-acidosis. He denies etoh use. He denies hx of diabetes. beta hydroxybutyrate is negative. CT a/p unremarkable.
PLAN:
Intractable N/V - Suspect CVS, reports last cannabis use was 2 months ago. He feels improved but not yet able to tolerate po
- admit to med/surg observation
- continue IV NS + dextrose
- antiemetics and pain control (Qtc increased)
- advance to clear liquid diet in am
DVT PPX - SCDs
Code status - Full Code
[2024-12-04 06:29] LABS: Hematocrit 42.3 % (39.0-52.0); Hemoglobin 14.9 g/dL (13.0-18.0); Mean Corp Hgb Conc. 35.2 g/dL (33.0-37.0); Mean Corpuscular Volume 91.4 fL (80.0-94.0); Platelet Count 295 10^3/uL (130-400); Red Cell Dist. Width 12.2 % (11.5-14.5)
[2024-12-04 07:02] LABS: Blood Urea Nitrogen 13 mg/dl (9-20); Calcium 9.0 mg/dl (8.4-10.2); Carbon Dioxide 19 mmol/L (22-30); Chloride 107 mmol/L (98-107); Glucose 114 mg/dl (70-99); Magnesium 2.0 mg/dl (1.6-2.3); Potassium 4.2 mmol/L (3.5-5.1); Sodium 138 mmol/L (135-145); eGFR > 60.00
[2024-12-04] MEDS: D5LR 1000 IV (07:53)
--- NOTE | 2024-12-04 08:05 | W.PN.HOSP.TC ---
Today's Communication/Plan
-
see A/P
Assessment / Plan
Assessment / Plan
HPI: 39 yo w/ h/o SVT status post ablation, hypertension, GERD, hyperlipidemia, cyclic vomiting syndrome, p/w 3 days of N/V (non-bilious and non-bloody). Patient unable to tolerate PO. No fevers.
He is HD stable but labs notable for small anion gap acidosis. He has urinary ketones on admission suggestive of starvation keto-acidosis.
He denies etoh use. He denies hx of diabetes. beta hydroxybutyrate is negative. CT a/p unremarkable. He is on Truvada for preexposure prophylaxis.
A/P:
# Intractable N/V - Suspect cyclic vomiting syndrome
# Metabolic acidosis, improving
CT AP unrevealing
reports last cannabis use was 2 months ago. He feels improved but not yet able to tolerate po
Check UDS
Cont current IVF
Clears and ADAT
Cont antiemetics with Compazine PRN
Encourage hot shower to alleviate cyclic vomiting syndrome syndrome, trial of lidocaine cream to apply over abdomen
DVT PPX - SCDs
Code status - Full Code
Anticipated Discharge: 24 - 48 hours
Subjective/Interval History
-
Date of Service: December 04, 2024
Objective Data
-
Labs:
Laboratory Results
12/03/24 12/04/24
22:13 06:09
WBC 20.4 H 17.9 H
Hgb 16.4 14.9
Hct 45.7 42.3
Plt Count 341 295
Sodium 136 138
Potassium 4.6 4.2
Chloride 103 107
Carbon Dioxide 14 L* 19 L
BUN 20 13
Creatinine 1.2 0.8
Glucose 254 H 114 H
Calcium 10.8 H 9.0 D
Total Bilirubin 1.1
AST 27
ALT 31
Alkaline Phosphatase 40
Vital Signs:
Vital Signs
Pulse Resp BP Pulse Ox
109 22 109/80 96
12/04/24 04:45 12/04/24 04:45 12/04/24 04:30 12/04/24 04:45
Review of Systems
-
History Source: Patient
Abdomen/GI: Reports Nausea and Vomiting (resolving ); Denies Abdominal Pain (resolved)
Physical Exam
-
General: Well Developed, Well Nourished, No Apparent Distress, Comfortable and Conversant
HEENT: Normocephalic and Atraumatic
Respiratory: Clear to Auscultation and Non Labored Respirations; Negative Accessory Resp Muscle Use
Cardiac: Regular Rhythm and S1/S2
GI: Soft, Nontender, Nondistended and Normal Bowel Sounds
Neuro: Awake and Alert
Psych: Calm and Intact Judgement/Insight
Data Reviewed
-
CT Scan: Report Reviewed by me
Labs: Labs Reviewed by me
[2024-12-04] MEDS: LMX 4 1 APPLIC TOPICAL (09:04)
[2024-12-04] MEDS: TRUVADA TABLET 1 TABLET PO (09:04)
[2024-12-04] MEDS: NORVASC 2.5 MG PO (09:05)
[2024-12-04] MEDS: XANAX 0.5 MG PO (09:05)
[2024-12-04] MEDS: LONITEN 1.25 MG PO (09:05)
[2024-12-04] MEDS: TOPROL XL 100 MG PO (09:05)
[2024-12-04] MEDS: WELLBUTRIN XL (24 hour extended release) 300 MG PO (09:05)
--- NOTE | 2024-12-04 11:05 | CM ---
CM reviewed chart and met with pt bedside in ED. Lives with his parents, 2 story home, 2 [address].
Independent in ADLs, personal care and ambulation at baseline. 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
No hx VN/SNF
PCP: Reynaldo Ramsey
Pharmacy: [facility] [address]
Anticipate discharge home, CM will continue to follow for any discharge planning needs.
--- NOTE | 2024-12-04 16:13 | PTCARENOTE ---
pt expressed that he had one episode of emesis post eating sandwhich. compazine given for nausea. pt escorted to [facility].
--- NOTE | 2024-12-04 16:20 | PTCARENOTE ---
Received pt from ED via stretcher. Pt ambulated to bed independently. AAOx3. No complaints of pain. Assessed and oriented to room. Pt verbalized understanding of call forman. Call forman within close reach. Will continue to monitor.
[2024-12-04] MEDS: TIGAN 200 MG IM (19:17)
[2024-12-04] MEDS: XANAX 1 MG PO (21:15)
--- NOTE | 2024-12-05 02:40 | DOWNTIME ---
There was a [employer] Downtime on 12/05/2024 from 0100 to 12/05/2024 at 0235. Downtime documentation of patient's care, including medication administrations, has been reconciled in the electronic record per guidelines. Refer to the
patient's paper chart under the miscellaneous tab to see printed paper medication records and downtime forms.
[2024-12-05] MEDS: COMPAZINE 10 MG IV ×3 (03:53→18:09)
[2024-12-05 07:16] LABS: Hematocrit 44.0 % (39.0-52.0); Hemoglobin 15.0 g/dL (13.0-18.0); Mean Corp Hgb Conc. 34.1 g/dL (33.0-37.0); Mean Corpuscular Volume 93.0 fL (80.0-94.0); Nucleated Red Blood Cells % 0 % (-); Platelet Count 297 10^3/uL (130-400); Red Cell Dist. Width 12.2 % (11.5-14.5)
[2024-12-05 07:34] LABS: Blood Urea Nitrogen 9 mg/dl (9-20); Calcium 9.7 mg/dl (8.4-10.2); Carbon Dioxide 23 mmol/L (22-30); Chloride 102 mmol/L (98-107); Glucose 121 mg/dl (70-99); Magnesium 2.2 mg/dl (1.6-2.3); Potassium 3.4 mmol/L (3.5-5.1); Sodium 138 mmol/L (135-145); eGFR > 60.00
[2024-12-05 07:41] VITALS: BP 126/80
[2024-12-05] MEDS: WELLBUTRIN XL (24 hour extended release) 300 MG PO (08:20)
[2024-12-05] MEDS: NORVASC 2.5 MG PO (08:20)
[2024-12-05] MEDS: LONITEN 1.25 MG PO (08:21)
[2024-12-05] MEDS: XANAX 0.5 MG PO (08:21)
[2024-12-05] MEDS: TOPROL XL 100 MG PO (08:22)
[2024-12-05] MEDS: TRUVADA TABLET 1 TABLET PO (09:13)
--- NOTE | 2024-12-05 09:37 | W.PN.HOSP.TC ---
Today's Communication/Plan
-
see A/P
Assessment / Plan
Assessment / Plan
HPI: 39 yo w/ h/o SVT status post ablation, hypertension, GERD, hyperlipidemia, cyclic vomiting syndrome, p/w 3 days of N/V (non-bilious and non-bloody). Patient unable to tolerate PO. No fevers.
He is HD stable but labs notable for small anion gap acidosis. He has urinary ketones on admission suggestive of starvation keto-acidosis.
He denies etoh use. He denies hx of diabetes. beta hydroxybutyrate is negative. CT a/p unremarkable. He is on Truvada for preexposure prophylaxis.
A/P:
# Intractable N/V - Suspect cyclic vomiting syndrome
# Metabolic acidosis, resolved
CT AP unrevealing
reports last cannabis use was 2 months ago.
UDS positive for marijuana and benzo
observe off IVF
diet advanced to solid and pt appears to be tolerating
Cont antiemetics with Compazine PRN
Encourage to cont hot shower to alleviate cyclic vomiting syndrome syndrome and trial of lidocaine cream to apply over abdomen
# Hypokalemia
replete
DVT PPX - SCDs
Code status - Full Code
Anticipated Discharge: Within 24 hours
Subjective/Interval History
-
Date of Service: December 05, 2024
Objective Data
-
Labs:
Laboratory Results
12/05/24
06:15
WBC 17.0 H
Hgb 15.0
Hct 44.0
Plt Count 297
Sodium 138
Potassium 3.4 L
Chloride 102
Carbon Dioxide 23
BUN 9
Creatinine 0.8
Glucose 121 H
Calcium 9.7
Vital Signs:
Vital Signs
Temp Pulse Resp BP Pulse Ox
36.6 C 100 14 126/80 100
12/05/24 07:41 12/05/24 08:20 12/05/24 07:41 12/05/24 08:20 12/05/24 07:41
Review of Systems
-
History Source: Patient
Abdomen/GI: Reports Abdominal Pain (mild) and Nausea
Physical Exam
-
General: Well Developed, Well Nourished, No Apparent Distress, Comfortable and Conversant
HEENT: Normocephalic and Atraumatic
Respiratory: Clear to Auscultation and Non Labored Respirations; Negative Accessory Resp Muscle Use
Cardiac: Regular Rhythm and S1/S2
GI: Soft, Nontender, Nondistended and Normal Bowel Sounds
Neuro: Awake and Alert
Psych: Calm and Intact Judgement/Insight
Data Reviewed
-
CT Scan: Report Reviewed by me
Labs: Labs Reviewed by me
[2024-12-05] MEDS: KCL 40 MEQ PO (10:16)
[2024-12-05] MEDS: FLUSH (NSS) 2 FLUSH IV (12:02)
--- NOTE | 2024-12-05 13:06 | CM ---
patient seen at bedside with mom
Obs status
tolerating regular diet
PLAN: Home, no needs
mom to transport
--- NOTE | 2024-12-05 14:00 | PTCARENOTE ---
Pt c/o unrelieved nausea, made aware, new order provided, see MAR. New order placed for ECG, to be obtained.
[2024-12-05] MEDS: FLUSH (NSS) 1 FLUSH IV ×2 (14:19→18:19)
[2024-12-05] MEDS: ZOFRAN 4 MG IV (14:19)
[2024-12-05 15:07] VITALS: BMI 27.6
[2024-12-05 15:34] VITALS: BP 147/106
--- NOTE | 2024-12-05 16:35 | PTCARENOTE ---
Pt mom informed this RN that pt continues to have NV. made aware. Mother requested update from , pt gave consent for MD to call mother with update tomorrow. made aware. informed this RN that lidocaine will be ordered.
[2024-12-05] MEDS: LMX 4 1 APPLIC TOPICAL (18:15)
[2024-12-05] MEDS: XANAX 1 MG PO (21:40)
[2024-12-05] MEDS: LMX 4 TOPICAL ×2 (21:40→21:42)
[2024-12-05 22:57] VITALS: BP 117/82
[2024-12-06] MEDS: COMPAZINE 10 MG IV ×2 (07:16→16:25)
[2024-12-06 07:51] VITALS: BP 168/110
[2024-12-06] MEDS: TRUVADA TABLET 1 TABLET PO (08:02)
[2024-12-06] MEDS: WELLBUTRIN XL (24 hour extended release) 300 MG PO (08:03)
[2024-12-06] MEDS: XANAX 0.5 MG PO (08:03)
[2024-12-06] MEDS: TYLENOL 650 MG PO (08:03)
[2024-12-06] MEDS: NORVASC 2.5 MG PO (08:03)
[2024-12-06] MEDS: TOPROL XL 100 MG PO (08:04)
[2024-12-06] MEDS: LMX 4 1 APPLIC TOPICAL ×3 (08:04→17:22)
[2024-12-06] MEDS: LONITEN 1.25 MG PO (08:04)
[2024-12-06 08:11] LABS: Hematocrit 45.8 % (39.0-52.0); Hemoglobin 15.9 g/dL (13.0-18.0); Mean Corp Hgb Conc. 34.7 g/dL (33.0-37.0); Mean Corpuscular Volume 92.0 fL (80.0-94.0); Nucleated Red Blood Cells % 0 % (-); Platelet Count 333 10^3/uL (130-400); Red Cell Dist. Width 12.2 % (11.5-14.5)
--- NOTE | 2024-12-06 09:53 | W.PN.HOSP.TC ---
Addendum entered and electronically signed by Pauline Lane MD 12/06/24 12:27:
updated mother on the phone
Original Note:
Today's Communication/Plan
-
BMP pending
see A/p
Assessment / Plan
Assessment / Plan
HPI: 39 yo w/ h/o SVT status post ablation, hypertension, GERD, hyperlipidemia, cyclic vomiting syndrome, p/w 3 days of N/V (non-bilious and non-bloody). Patient unable to tolerate PO. No fevers.
He is HD stable but labs notable for small anion gap acidosis. He has urinary ketones on admission suggestive of starvation keto-acidosis.
He denies etoh use. He denies hx of diabetes. beta hydroxybutyrate is negative. CT a/p unremarkable. He is on Truvada for preexposure prophylaxis.
A/P:
# Intractable N/V - Suspect cyclic vomiting syndrome
# Metabolic acidosis, resolved
CT AP unrevealing
reports last cannabis use was 2 months ago.
UDS positive for marijuana and benzo
observe off IVF
diet advanced to solid and pt appears to be tolerating
Cont antiemetics with Compazine PRN, add Zofran PRN
Encourage to cont hot shower to alleviate cyclic vomiting syndrome syndrome and trial of lidocaine cream to apply over abdomen
# Hypokalemia
replete
DVT PPX - SCDs
Code status - Full Code
DW RN
Anticipated Discharge: Within 24 hours
Subjective/Interval History
-
Date of Service: December 06, 2024
Objective Data
-
Labs:
Laboratory Results
12/06/24 12/06/24
07:53 09:50
WBC 16.7 H
Hgb 15.9
Hct 45.8
Plt Count 333
Sodium Cancelled Pending
Potassium Cancelled Pending
Chloride Cancelled Pending
Carbon Dioxide Cancelled Pending
BUN Cancelled Pending
Creatinine Cancelled Pending
Glucose Cancelled Pending
Calcium Cancelled Pending
Vital Signs:
Vital Signs
Temp Pulse Resp BP Pulse Ox
36.6 C 86 14 168/110 97
12/06/24 07:51 12/06/24 08:03 12/06/24 07:51 12/06/24 08:03 12/06/24 08:53
I&O
12/05/24 12/06/24 12/07/24
06:59 06:59 06:59
Intake Total 480 / 480
Balance 480 / 480
Review of Systems
-
History Source: Patient
Abdomen/GI: Reports Abdominal Pain (mild) and Nausea
Physical Exam
-
General: Well Developed, Well Nourished, No Apparent Distress, Comfortable and Conversant
HEENT: Normocephalic and Atraumatic
Respiratory: Clear to Auscultation and Non Labored Respirations; Negative Accessory Resp Muscle Use
Cardiac: Regular Rhythm and S1/S2
GI: Soft, Nontender, Nondistended and Normal Bowel Sounds
Neuro: Awake and Alert
Psych: Calm and Intact Judgement/Insight
Data Reviewed
-
CT Scan: Report Reviewed by me
Labs: Labs Reviewed by me
[2024-12-06] MEDS: TORADOL 15 MG IV (10:09)
[2024-12-06] MEDS: ZOFRAN 4 MG IV ×2 (10:09→17:21)
[2024-12-06] MEDS: APRESOLINE 10 MG IV (10:37)
--- NOTE | 2024-12-06 12:01 | CM ---
Patient seen at bedside with mom
OBS status
PLAN: Home, no needs
mom to transport
[2024-12-06 12:24] VITALS: BP 161/99
[2024-12-06 15:13] VITALS: BP 110/76
[2024-12-06] MEDS: XANAX 1 MG PO (22:13)
[2024-12-06] MEDS: LMX 4 TOPICAL (22:14)
[2024-12-06 22:56] VITALS: BP 123/84
[2024-12-07 07:46] VITALS: BP 108/81
[2024-12-07 07:58] LABS: Hematocrit 45.9 % (39.0-52.0); Hemoglobin 16.0 g/dL (13.0-18.0); Mean Corp Hgb Conc. 34.9 g/dL (33.0-37.0); Mean Corpuscular Volume 91.6 fL (80.0-94.0); Nucleated Red Blood Cells % 0 % (-); Platelet Count 313 10^3/uL (130-400); Red Cell Dist. Width 11.9 % (11.5-14.5)
[2024-12-07] MEDS: LONITEN 1.25 MG PO (08:07)
[2024-12-07] MEDS: XANAX 0.5 MG PO (08:07)
[2024-12-07] MEDS: WELLBUTRIN XL (24 hour extended release) 300 MG PO (08:07)
[2024-12-07] MEDS: NORVASC 2.5 MG PO (08:09)
[2024-12-07] MEDS: LMX 4 TOPICAL ×4 (08:09→22:21)
[2024-12-07] MEDS: TRUVADA TABLET 1 TABLET PO (08:09)
[2024-12-07] MEDS: TOPROL XL 100 MG PO (08:09)
[2024-12-07 08:27] LABS: Blood Urea Nitrogen 10 mg/dl (9-20); Calcium 9.5 mg/dl (8.4-10.2); Carbon Dioxide 28 mmol/L (22-30); Chloride 101 mmol/L (98-107); Glucose 88 mg/dl (70-99); Magnesium 2.5 mg/dl (1.6-2.3); Potassium 3.8 mmol/L (3.5-5.1); Sodium 137 mmol/L (135-145); eGFR > 60.00
[2024-12-07] MEDS: COMPAZINE 10 MG IV ×2 (08:48→15:24)
--- NOTE | 2024-12-07 09:00 | PTCARENOTE ---
Pt drank clear liquids for breakfast without any nausea. However, when pt took one bite of [place] muffin, pt became nauseated. Compazine IV given. Will reassess.
[2024-12-07] MEDS: ZOFRAN 4 MG IV (09:32)
[2024-12-07] MEDS: TYLENOL 650 MG PO (09:40)
--- NOTE | 2024-12-07 11:13 | PTCARENOTE ---
Compazine given to pt for nausea after breakfast at 0848. Compazine not effective in relieving nausea and pt had episode of vomiting. Zofran IV given at 0932. Pt reports having slight generalized abd pain after vomiting and rated pain a 2/10. Pt
recieved PO Tylenol at 0940. About an hour after administration of Tylenol, pt reports continued slight abd pain. Pt requesting Bentyl for abd cramping. notified.
[2024-12-07] MEDS: BENTYL 10 MG PO (11:32)
--- NOTE | 2024-12-07 12:04 | W.PN.HOSP.TC ---
Today's Communication/Plan
-
see A/P
Assessment / Plan
Assessment / Plan
HPI: 39 yo w/ h/o SVT status post ablation, hypertension, GERD, hyperlipidemia, cyclic vomiting syndrome, p/w 3 days of N/V (non-bilious and non-bloody). Patient unable to tolerate PO. No fevers.
He is HD stable but labs notable for small anion gap acidosis. He has urinary ketones on admission suggestive of starvation keto-acidosis.
He denies etoh use. He denies hx of diabetes. beta hydroxybutyrate is negative. CT a/p unremarkable. He is on Truvada for preexposure prophylaxis.
A/P:
# Intractable N/V - Suspect cyclic vomiting syndrome
# Metabolic acidosis, resolved
CT AP unrevealing
reported last cannabis use was 2 months ago.
UDS positive for marijuana and benzo
diet advanced to solid and monitor for tolerance
Cont antiemetics with Compazine PRN, Zofran PRN
Encourage to cont hot shower to alleviate cyclic vomiting syndrome syndrome and trial of lidocaine cream to apply over abdomen
s/p Bentyl for symptom
# Reactive leucocytosis, improving
# Hypokalemia
repleted
DVT PPX - SCDs
Code status - Full Code
DW RN
DW mother at bedside
Anticipated Discharge: Within 24 hours
Subjective/Interval History
-
Date of Service: December 07, 2024
Objective Data
-
Labs:
Laboratory Results
12/07/24
07:22
WBC 11.9 H
Hgb 16.0
Hct 45.9
Plt Count 313
Sodium 137
Potassium 3.8
Chloride 101
Carbon Dioxide 28
BUN 10
Creatinine 1.0
Glucose 88
Calcium 9.5
Vital Signs:
Vital Signs
Temp Pulse Resp BP Pulse Ox
36.3 C 93 14 118/60 96
12/07/24 07:46 12/07/24 08:07 12/07/24 07:46 12/07/24 08:07 12/07/24 09:06
I&O
12/06/24 12/07/24 12/08/24
06:59 06:59 06:59
Intake Total 480 / 480 1320 / 1320
Balance 480 / 480 1320 / 1320
Review of Systems
-
History Source: Patient
Abdomen/GI: Reports Abdominal Pain (mild), Nausea and Vomiting
Physical Exam
-
General: Well Developed, Well Nourished, No Apparent Distress, Comfortable and Conversant
HEENT: Normocephalic and Atraumatic
Respiratory: Clear to Auscultation and Non Labored Respirations; Negative Accessory Resp Muscle Use
Cardiac: Regular Rhythm and S1/S2
GI: Soft, Nontender, Nondistended and Normal Bowel Sounds
Neuro: Awake and Alert
Psych: Calm and Intact Judgement/Insight
Data Reviewed
-
CT Scan: Report Reviewed by me
Labs: Labs Reviewed by me
[2024-12-07 15:07] VITALS: BP 160/101
[2024-12-07] MEDS: NSS (PRESERVATIVE FREE) 10 ML IV (16:11)
[2024-12-07] MEDS: PROTONIX IV 40 MG IV (16:11)
[2024-12-07 16:17] VITALS: BP 168/104
[2024-12-07] MEDS: APRESOLINE 10 MG IV (16:31)
[2024-12-07 17:38] VITALS: BP 159/106
[2024-12-07] MEDS: XANAX 1 MG PO (22:20)
[2024-12-07 22:58] VITALS: BP 127/92
[2024-12-08 07:53] VITALS: BP 136/99
[2024-12-08 07:59] LABS: Hematocrit 48.9 % (39.0-52.0); Hemoglobin 17.1 g/dL (13.0-18.0); Mean Corp Hgb Conc. 35.0 g/dL (33.0-37.0); Mean Corpuscular Volume 91.9 fL (80.0-94.0); Nucleated Red Blood Cells % 0 % (-); Platelet Count 324 10^3/uL (130-400); Red Cell Dist. Width 12.0 % (11.5-14.5)
[2024-12-08 08:29] LABS: Blood Urea Nitrogen 11 mg/dl (9-20); Calcium 9.9 mg/dl (8.4-10.2); Carbon Dioxide 28 mmol/L (22-30); Chloride 98 mmol/L (98-107); Glucose 92 mg/dl (70-99); Potassium 4.8 mmol/L (3.5-5.1); Sodium 138 mmol/L (135-145); eGFR > 60.00
[2024-12-08] MEDS: WELLBUTRIN XL (24 hour extended release) 300 MG PO (08:38)
[2024-12-08] MEDS: LONITEN 1.25 MG PO (08:38)
[2024-12-08] MEDS: NSS (PRESERVATIVE FREE) 10 ML IV (08:39)
[2024-12-08] MEDS: PROTONIX IV 40 MG IV (08:39)
[2024-12-08] MEDS: COMPAZINE 10 MG IV (08:44)
[2024-12-08] MEDS: TOPROL XL 100 MG PO (08:44)
[2024-12-08] MEDS: NORVASC 2.5 MG PO (08:44)
[2024-12-08] MEDS: LMX 4 TOPICAL ×2 (08:44→12:05)
[2024-12-08] MEDS: XANAX 0.5 MG PO (08:53)
[2024-12-08] MEDS: TRUVADA TABLET 1 TABLET PO (10:14)
--- NOTE | 2024-12-08 11:38 | W.PN.HOSP.TC ---
Today's Communication/Plan
-
DC home today
Assessment / Plan
Assessment / Plan
HPI: 39 yo w/ h/o SVT status post ablation, hypertension, GERD, hyperlipidemia, cyclic vomiting syndrome, p/w 3 days of N/V (non-bilious and non-bloody). Patient unable to tolerate PO. No fevers.
He is HD stable but labs notable for small anion gap acidosis. He has urinary ketones on admission suggestive of starvation keto-acidosis.
He denies etoh use. He denies hx of diabetes. beta hydroxybutyrate is negative. CT a/p unremarkable. He is on Truvada for preexposure prophylaxis.
A/P:
# Intractable N/V - Suspect cyclic vomiting syndrome
# Metabolic acidosis, resolved
CT AP unrevealing
reported last cannabis use was 2 months ago.
UDS positive for marijuana and benzo
diet advanced to solid and monitor for tolerance
Cont antiemetics with Compazine PRN, Zofran PRN
Encourage to cont hot shower to alleviate cyclic vomiting syndrome syndrome and trial of lidocaine cream to apply over abdomen
s/p Bentyl for symptom, OK to cont as needed following discharge
# Reactive leucocytosis, improving
# Hypokalemia
repleted
DVT PPX - SCDs
Code status - Full Code
DW mother at bedside
Anticipated Discharge: Today
Subjective/Interval History
-
Date of Service: December 08, 2024
Objective Data
-
Labs:
Laboratory Results
12/08/24
06:56
WBC 12.9 H
Hgb 17.1
Hct 48.9
Plt Count 324
Sodium 138
Potassium 4.8 D
Chloride 98
Carbon Dioxide 28
BUN 11
Creatinine 1.0
Glucose 92
Calcium 9.9
Vital Signs:
Vital Signs
Temp Pulse Resp BP Pulse Ox
36.3 C 88 16 136/99 99
12/08/24 07:53 12/08/24 07:53 12/08/24 07:53 12/08/24 07:53 12/08/24 07:53
I&O
12/07/24 12/08/24 12/09/24
06:59 06:59 06:59
Intake Total 1320 / 1320 1380 / 1380
Balance 1320 / 1320 1380 / 1380
Review of Systems
-
History Source: Patient
Abdomen/GI: Denies Abdominal Pain, Nausea or Vomiting
Physical Exam
-
General: Well Developed, Well Nourished, No Apparent Distress, Comfortable and Conversant
HEENT: Normocephalic and Atraumatic
Respiratory: Clear to Auscultation and Non Labored Respirations; Negative Accessory Resp Muscle Use
Cardiac: Regular Rhythm and S1/S2
GI: Soft, Nontender, Nondistended and Normal Bowel Sounds
Neuro: Awake and Alert
Psych: Calm and Intact Judgement/Insight
Data Reviewed
-
CT Scan: Report Reviewed by me
Labs: Labs Reviewed by me
--- NOTE | 2024-12-08 12:02 | W.DCSUMMARY ---
Discharge Summary
Discharge Data
Date of Admission: 12/04/24
Date of Discharge: 12/08/24
Total time spent discharging patient (in min): 40
-
Pending Results: No
Hospital Course
Principal Diagnosis:
Cyclic vomiting syndrome due to marijuana use
Resolved metabolic acidosis
Chronic Diagnoses:�
SVT status post ablation,
Hypertension,
GERD,
Hyperlipidemia,
Cyclic vomiting syndrome
Consultations:�
None
Procedures:�
None
Clinical course:�
This is a 39-year-old male with past medical history as stated above, who presented with nausea, vomiting, and abdominal pain.
Problem 1:
Intractable N/V, due to cyclic vomiting syndrome secondary to marijuana use.
This was associated with metabolic acidosis, which resolved during hospital stay.
His CT abdomen/pelvis was unrevealing.
His UDS was positive for marijuana and benzo.
His diet was advanced to solid which he tolerated.
He has been encouraged to continue with hot shower and lidocaine cream for symptom control.
He was also sent home with a few tablets of Bentyl for symptomatic relief.
As for the rest of his medical problems, they were stable during his hospital stay.
Discharge Plan
-
Patient Disposition: Home (Routine Discharge)
Discharge Diagnosis/Procedures: cyclic vomiting syndrome
Condition: Fair
Diet: As tolerated
Activity: As tolerated
Driving Restrictions: As prior to admission
Referrals:
Lázaro Quezada MD [Family Provider, [facility]] - in less than 1 week
Prescriptions:
New
dicyclomine 10 mg capsule
10 mg PO DAILY Qty: 5 0RF
Continued
Unisom (doxylamine) 25 MG tablet
25 mg PO HS
alprazolam 1 MG tablet
1 mg PO HS
fluticasone propionate 1 SPRAY spray,suspension
1 spray intranasal BID
finasteride 1 MG tablet
1 mg PO DAILY
amlodipine [Norvasc] 2.5 mg Tablet
2.5 mg PO DAILY
metoprolol succinate 100 mg tablet extended release 24 hr
100 mg PO DAILY
bupropion HCl 300 mg Tablet Extended Release 24 Hr
300 mg PO DAILY
emtricitabine-tenofovir (TDF) [Truvada] 200-300 mg Tablet
1 tab PO DAILY
therapeutic multivitamin Tablet
1 tab PO DAILY
minoxidil 2.5 mg Tablet
1.25 mg PO DAILY
alprazolam [Xanax] 0.5 mg Tablet
0.5 mg PO DAILY
PreserVision AREDS 2,148 mcg-113 mg-45 mg-17.4mg Tablet
1 tab PO DAILY
Keymar 3-6-9 1,200 mg Capsule
1 cap PO DAILY
turmeric 400 mg Capsule
500 mg PO DAILY
atomoxetine 10 mg Capsule
10 mg PO HS
Zepbound 5 mg/0.5 mL Pen Injector
5 mg SC GENAO
Discharge Orders:
Discharge Patient (As Directed); Ordered 12/08/24
Ordered By: Pauline Lane
Discharge Date and Time
Print Language: PERSIAN
[2024-12-08 13:25] VITALS: BP 125/60
--- NOTE | 2024-12-08 13:29 | PTCARENOTE ---
patient required one dose of PRN Compazine for c/o nausea after having clear liquids for breakfast. no further c/o nausea. independent in room, vss, for discharge home today with his mom.
--- NOTE | 2024-12-08 13:50 | CM ---
Patient discharge today
met with patient & mom
PLAN: Home, no needs
mom to transport
== END 2024-12-08 13:34 | disposition home or self-care (01) ==
LOC: 3 WEST ACU 03:46
PROVIDERS: Emergency Medicine; ADMITTING PHYSICIAN Internal Medicine; ATTENDING PHYSICIAN Internal Medicine; EMERGENCY PHYSICIAN Emergency Medicine; FAMILY PHYSICIAN Family Medicine
DX: R11.2 Nausea with vomiting, unspecified (principal); F12.90 Cannabis use, unspecified, uncomplicated; D72.829 Elevated white blood cell count, unspecified; E87.20 Acidosis, unspecified; E87.6 Hypokalemia; E78.5 Hyperlipidemia, unspecified; K21.9 Gastro-esophageal reflux disease without esophagitis; I10 Essential (primary) hypertension; G47.33 Obstructive sleep apnea (adult) (pediatric); K44.9 Diaphragmatic hernia without obstruction or gangrene
CPT/HCPCS: 74177; 80048; 80053; 80306; 80307; 81003; 82010; 83690; 83735; 85025; 85027; 87040; 93005; 96361; 96374; 96375; 99285; G0378; J7030; Q9967

== ENCOUNTER 2025-02-19 20:46 | Emergency (ER) | payer OTHER, SELFPAY ==
[2025-02-19 20:50] VITALS: BP 153/111
[2025-02-19] MEDS: ZOFRAN ODT (ORALLY DISINTEGRATING) 4 MG PO (20:53)
[2025-02-19 21:19] LABS: Hematocrit 44.8 % (39.0-52.0); Hemoglobin 15.8 g/dL (13.0-18.0); Mean Corp Hgb Conc. 35.3 g/dL (33.0-37.0); Mean Corpuscular Volume 92.0 fL (80.0-94.0); Nucleated Red Blood Cells % 0 % (-); Platelet Count 331 10^3/uL (130-400); Red Cell Dist. Width 12.0 % (11.5-14.5)
[2025-02-19 21:37] LABS: ALT (SGPT) 26 U/L (0-50); AST (SGOT) 27 U/L (17-59); Albumin 5.5 g/dl (3.5-5.0); Alkaline Phosphatase 46 U/L (38-126); Blood Urea Nitrogen 17 mg/dl (9-20); Calcium 10.9 mg/dl (8.4-10.2); Carbon Dioxide 27 mmol/L (22-30); Chloride 94 mmol/L (98-107); Glucose 183 mg/dl (70-99); Lipase 89 U/L (23-300); Potassium 4.3 mmol/L (3.5-5.1); Sodium 134 mmol/L (135-145); Total Protein 9.3 g/dl (6.3-8.2); eGFR > 60.00
== END 2025-02-19 21:25 | disposition left against medical advice (07) ==
LOC: EMR 20:46
PROVIDERS: EMERGENCY PHYSICIAN Student in an Organized Health Care Education/Training Program; FAMILY PHYSICIAN Family Medicine
DX: R11.10 Vomiting, unspecified (principal); Z53.21 Procedure and treatment not carried out due to patient leaving prior to being seen by health care provider
CPT/HCPCS: 80053; 83690; 85025; 93005

== ENCOUNTER 2025-02-19 23:31 | Emergency (ER) | payer OTHER, SELFPAY ==
[2025-02-19 23:34] VITALS: BP 168/100
--- NOTE | 2025-02-20 00:33 | ED.GENMED ---
History of Present Illness
General
Chief Complaint: Abdominal Symptoms
Source: patient
Exam Limitations: none
Time Seen by Provider: 02/20/25 00:31
Nursing documentation reviewed up to this point in time: agreed with
History of Present Illness
History of Present Illness:
Note:
CHIEF COMPLAINT(S)
Burning sensation in the abdomen, nausea, and vomiting for three days.
HISTORY OF PRESENT ILLNESS
The patient is a 39-year-old male who presents with a burning sensation in the abdomen that started today, accompanied by nausea and vomiting for the past three days. The patient reports the pain as severe, describing it as a 'burning really, really
bad,' and mentions that it is almost bringing him to tears. He has attempted to hydrate with liquids like iced tea, apple juice, and water but continues to vomit. The patient reports similar episodes in the past and reports that he had multiple
negative CT scans of his abdomen. He was diagnosed with CHS previously.
The patient has had colitis and was previously admitted in August for that, although he reports that this episode feels different. There is no diarrhea, no bloody stools. He did report a small street of blood after multiple episodes of vomiting.
The patient self-reports using medical marijuana, frequently for anxiety, and reports that he used a lot more today because he was feeling very stressed; however, he mentions a difference in the current symptoms compared to previous experiences. The
patient is unable to tolerate much oral intake due to the pain and nausea and reports diffuse abdominal pain with the worst being in the left upper quadrant.
PAST MEDICAL AND SURGICAL HISTORY
History of colitis.
Sleep apnea
Ablation for SVT
Depression
Anxiety
CHRONIC MEDICAL CONDITIONS SIGNIFICANTLY AFFECTING CARE
History of colitis.
SOCIAL HISTORY
The patient uses medical marijuana frequently for anxiety.
REVIEW OF SYSTEMS
- Gastrointestinal: Severe abdominal pain, nausea, vomiting, streaks of blood in bowel movements.
- General: Unable to tolerate oral intake well.
PHYSICAL EXAM
General: Alert, no acute distress.
Skin: Warm, dry.
Head: Normocephalic, atraumatic.
Neck: Supple, trachea midline.
Eyes, Ears, Nose, Mouth, and Throat: Oral mucosa moist.
Cardiovascular: Normal peripheral perfusion, No edema.
Respiratory: Respirations are non-labored.
Gastrointestinal: Abdomen diffusely tender, non-focal, no guarding, no palpable mass
Back: Normal range of motion, Normal alignment.
Musculoskeletal: Normal ROM, normal strength.
Neurological: Alert and oriented to person, place, time, and situation, No focal neurological deficit observed.
Psychiatric: Cooperative, appropriate mood & affect.
PROBLEM LIST
Acute Problems:
- Abdominal pain with nausea and vomiting
Chronic Problems:
- History of colitis
PLAN
1. Pain management with prescribed analgesics.
2. Consideration of imaging
3. Administration of intramuscular Trimethobenzamide for nausea to avoid potential cardiac risks associated with other anti-emetics like Zofran.
4. Follow-up with gastrointestinal specialist for further evaluation
5. Continuous monitoring of symptoms, especially regarding abdominal pain and blood presence in stool or vomit.
6. Educate on limiting marijuana use
DIFFERENTIAL DIAGNOSIS
The Differential Diagnosis includes, in no particular order and is not limited to:
-Peptic Ulcer Disease
-Gastroenteritis
-Acute Pancreatitis
-Gastrointestinal Bleed
-Cholecystitis
-Cannabinoid Hyperemesis Syndrome
-Irritable Bowel Syndrome
-Gastritis
CHART REVIEW
Reviewed discharge summary from 12/08/2024 patient mid to the hospital for cyclic vomiting syndrome secondary to marijuana use
Reviewed discharge summary from 09/01/2024 patient seen for enterocolitis
MDM/DISPOSITION
39-year-old male with a past medical history and no daily marijuana use, GERD, presents to ER today with concerns of abdominal pain and persistent vomiting. Initially seen around 8 PM in the ER but left without treatment. He returns for worsening
symptoms. He had lab work done a few hours prior which revealed leukocytosis of 17 suspect from reactive from persistent vomiting. No evidence of acidosis on blood work. No signs of el significant electrolyte derangement. His total bilirubin is
mildly elevated at 1.4. I did send him for ultrasound which shows no evidence of acute cholecystitis. He is much improved after fluids, Tigan, Zofran. He is requesting to be discharged. Suspect cannabinoid hyperemesis syndrome. Patient does
admit to using extra marijuana today. Patient stable for discharge. Discussed close follow-up with PCP and GI doctor.
Past History
Past History
ED Past Medical History: Arrthythmia (SVT), HTN, Psychiatric (Anxiety) and Other (Sleep apnea, Colitis)
ED Past Surgical History: Cardiac (Ablation for SVT) and Other (Deviated septum repair)
Social History
Tobacco: Non-smoker
Alcohol: None
Drug: Former user (Former user of marijuana)
Personal: Single
Living: with family
Review of Systems
Review of Systems
All Other Systems: ROS reviewed and negative except as documented in HPI and ROS
Phy Exam
Physical Exam
Physical Exam:
see hpi
Course
Orders/Labs/Results
Orders:
Orders
02/20/25 00:31
Ondansetron Injectable [Zofran] 4 mg IV NOW STA
02/20/25 00:32
Electrocardiogram (*1) Urgent
Reason for Study: QTc Monitoring
EKG- Treatment ONCE
02/20/25 00:33
0.9% Sodium Chloride 1000 ml [Nss] 1,000 ml IV BOLUS
02/20/25 02:01
HYDROmorphone [Dilaudid] 0.5 mg IV NOW STA
02/20/25 02:02
Add On- LAB Urgent
Tests Added?: lipase
02/20/25 02:09
Trimethobenzamide [Tigan] 200 mg IM NOW STA
02/20/25 02:18
Cardiac Monitoring- Treatment ONCE
02/20/25 02:38
US Abdomen Complete/Upper Urgent
Comment:
Reason For Exam: epigastric pain, elevated T bili
Vital Signs
Initial and Last Documented VS:
Initial Vital Signs
Temp Pulse Resp BP Pulse Ox
98.1 F 97 20 168/100 97
02/19/25 23:34 02/19/25 23:34 02/19/25 23:34 02/19/25 23:34 02/19/25 23:34
Last Documented Vital Signs
Temp Pulse Resp BP Pulse Ox
98.1 F 92 18 118/71 99
02/19/25 23:34 02/20/25 04:34 02/20/25 04:34 02/20/25 04:34 02/20/25 04:34
*Pulse Oximetry
SaO2: 97
Oxygen Mode of Delivery: Room air
Patient hypoxic: no
*Critical Care Note
Total Time (30-74mins, 75-104mins- exclusive of procedures): Not Applicable
ED Attending Note
-
Portions of this chart may have been created with voice recognition software.� Occasional wrong word or��sound alike� substitutions may have occurred due to the inherent limitations of voice recognition software.
Discharge Plan
Departure
Patient Disposition: Home (Routine Discharge)
Date of Disposition: 02/20/25
Time of Disposition: 04:06
Patient with high blood pressure during this ER visit?: Yes
Condition: Good
Discharge Problem:
Cannabinoid hyperemesis syndrome
Instructions: Cannabis hyperemesis syndrome, BLOOD PRESSURE
Prescriptions:
New
dicyclomine 20 mg tablet
20 mg PO QID PRN (Reason: abdominal pain) Qty: 10 0RF
No Action
Unisom (doxylamine) 25 MG tablet
25 mg PO HS
alprazolam 1 MG tablet
1 mg PO HS
fluticasone propionate 1 SPRAY spray,suspension
1 spray intranasal BID
finasteride 1 MG tablet
1 mg PO DAILY
amlodipine [Norvasc] 2.5 mg Tablet
2.5 mg PO DAILY
metoprolol succinate 100 mg tablet extended release 24 hr
100 mg PO DAILY
bupropion HCl 300 mg Tablet Extended Release 24 Hr
300 mg PO DAILY
emtricitabine-tenofovir (TDF) [Truvada] 200-300 mg Tablet
1 tab PO DAILY
therapeutic multivitamin Tablet
1 tab PO DAILY
minoxidil 2.5 mg Tablet
1.25 mg PO DAILY
alprazolam [Xanax] 0.5 mg Tablet
0.5 mg PO DAILY
PreserVision AREDS 2,148 mcg-113 mg-45 mg-17.4mg Tablet
1 tab PO DAILY
Jackson 3-6-9 1,200 mg Capsule
1 cap PO DAILY
turmeric 400 mg Capsule
500 mg PO DAILY
atomoxetine 10 mg Capsule
10 mg PO HS
Zepbound 5 mg/0.5 mL Pen Injector
5 mg SC GENAO
dicyclomine 10 mg capsule
10 mg PO DAILY Qty: 5 0RF
Referrals:
Lázaro Quezada MD [Family Provider, Family Practice]
Activity Restrictions/Additional Instructions:
Please follow-up with your primary care provider. As discussed, your ultrasound shows a few gallstones but no signs of gallbladder infection.
PLEASE RETURN TO THE ER SHOULD YOU DEVELOP INTRACTABLE NAUSEA OR VOMITING, INABILITY TOLERATE ORAL INTAKE, CHEST PAIN, SHORTNESS OF BREATH, FEVERS OR CHILLS, OR ANY OTHER SIGNS OR SYMPTOMS WORRISOME TO YOU.
Interventions
Interventions:
*Risk Screen - Suicide Last Done: 02/19/25 23:34
*General Assessment Last Done: 02/19/25 23:34
*Neglect/Abuse Screening Last Done: 02/19/25 23:34
*ED- Fall Risk Assessment Last Done: 02/19/25 23:34
*ED COVID-19 Vaccine History Last Done: 02/19/25 23:34
*ED Influenza Vaccine History Last Done: 02/19/25 23:34
*Nursing Disposition Last Done: 02/20/25 04:34
[id number] Assessment Last Done: 02/19/25 23:53
Discharge Date and Time
Discharge Date/Time: 02/20/25 04:35
Print Language: FAROESE
[2025-02-20] MEDS: ZOFRAN 4 MG IV (00:37)
[2025-02-20] MEDS: NSS 1000 IV (00:40)
[2025-02-20 01:42] VITALS: BP 159/104
[2025-02-20 01:45] VITALS: BP 159/104
[2025-02-20] MEDS: DILAUDID 0.5 MG IV (02:08)
[2025-02-20] MEDS: TIGAN 200 MG IM (02:12)
[2025-02-20 03:42] VITALS: BP 118/71
[2025-02-20 04:34] VITALS: BP 118/71
== END 2025-02-20 04:35 | disposition home or self-care (01) ==
LOC: EMR 23:31
PROVIDERS: EMERGENCY PHYSICIAN Student in an Organized Health Care Education/Training Program; FAMILY PHYSICIAN Family Medicine
DX: R11.16 Cannabis hyperemesis syndrome (principal); F12.90 Cannabis use, unspecified, uncomplicated; F41.9 Anxiety disorder, unspecified; R10.9 Unspecified abdominal pain; I10 Essential (primary) hypertension; G47.30 Sleep apnea, unspecified
CPT/HCPCS: 96374; 96375; 96361; 96372; 99284; 76700; 93005

== ENCOUNTER 2025-02-20 19:35 | Emergency (ER) | payer OTHER, SELFPAY ==
[2025-02-20 19:38] VITALS: BP 138/104
--- NOTE | 2025-02-20 20:23 | ED.GENMED ---
History of Present Illness
General
Chief Complaint: Abdominal Symptoms
Time Seen by Provider: 02/20/25 20:23
History of Present Illness
History of Present Illness:
FOCUSED PAST MEDICAL HISTORY
- Has ablation for SVT, fatty liver, questionable colitis, anxiety/depression, stopped smoking marijuana for anxiety/insomnia about 3 months ago
REVIEW OF OLD RECORDS
- I reviewed records, the patient was seen in the Emergency Department earlier this morning and yesterday both times felt to have cannabinoid hyperemesis syndrome, the patient was admitted with similar symptoms in November 2024
- Earlier this morning, the patient was given IM Tigan, 0.5 mg of IV Dilaudid, a liter of saline, and 4 mg of Zofran, the patient was given Zofran yesterday evening as well
Note:
CHIEF COMPLAINT(S)
Abdominal pain and vomiting.
HISTORY OF PRESENT ILLNESS
The patient is a 39-year-old male who presented with abdominal pain and vomiting. He reports that he has been abstinent from cannabis for over three months but previously had symptoms suggestive of Cannabinoid Hyperemesis Syndrome. This episode
began approximately three days ago and is characterized by pain described as feeling like 'fire' or as if he 'swallowed acid,' primarily located in the central abdomen. The vomiting was severe, described as a seven or eight out of ten in severity.
The patient notes that this episode feels different and more intense compared to prior episodes. He received a diagnosis in a prior encounter of Cannabinoid Hyperemesis Syndrome, but todays symptoms seem different and are associated with more
significant abdominal pain. The patient received Zofran and a dose of Dilaudid during his last ER visit, which provided some relief. He has been receiving IV fluids as part of the treatment.
EXTERNAL RECORDS REVIEWED
The patient reports multiple previous visits to the ER with CT scans performed each time, reflecting similar presenting issues, though no scan was performed during his most recent visit.
SOCIAL DETERMINANTS AFFECTING HEALTH
The patient has ceased cannabis use for over three months, which previously contributed to his symptoms.
REVIEW OF SYSTEMS
- Pain: Central abdominal pain, described as a burning sensation.
- Gastrointestinal: Severe vomiting with a reported severity of seven to eight out of ten.
PHYSICAL EXAM
General: Alert, in mild distress due to pain.
Skin: Warm, dry.
Head: Normocephalic, atraumatic.
Neck: Supple, trachea midline.
Eyes, Ears, Nose, Mouth, and Throat: Oral mucosa moist.
Cardiovascular: Normal peripheral perfusion, No edema.
Respiratory: Respirations are non-labored.
Gastrointestinal: Abdomen nondistended, tenderness in central abdomen.
Back: Normal range of motion, normal alignment.
Musculoskeletal: Normal range of motion, normal strength.
Neurological: Alert and oriented to person, place, time, and situation. No focal neurological deficit observed.
Psychiatric: Cooperative, appropriate mood and affect.
PROBLEM LIST
Acute:
1. Abdominal pain.
2. Vomiting.
Chronic:
1. History of Cannabinoid Hyperemesis Syndrome.
PLAN
1. Administer IV fluids.
2. Provide antacid medication such as IV Pepcid.
3. Consider repeating laboratory blood work.
4. Discussion regarding appropriate analgesia as patient responds well to Dilaudid.
5. Follow-up with a four roll calender operator, Dr. Hairston, has been scheduled.
DIFFERENTIAL DIAGNOSIS
The Differential Diagnosis includes, in no particular order and is not limited to:
1. Cannabinoid Hyperemesis Syndrome
2. Gastroesophageal Reflux Disease
3. Peptic ulcer disease
4. Gastritis
5. Pancreatitis
6. Small bowel obstruction
7. Appendicitis
8. Inflammatory Bowel Disease
9. Gastroenteritis
10. Food poisoning
Disposition:
SUMMARY OF ENCOUNTER
The patient is a 39-year-old male who presented to the emergency department with severe abdominal pain and vomiting. His symptoms have escalated compared to previous episodes, with additional intensity, which made him seek urgent care. The patient
has a history of Cannabinoid Hyperemesis Syndrome but has been abstinent from cannabis for over three months. In the emergency department, he received intravenous fluids, a strong dose of intravenous famotidine (Pepcid) for acid relief, and
analgesia, including a narcotic, which provided symptom relief. He was also noted to have a prescription for ondansetron (Zofran) at home for nausea management.
PLAN
1. Continue using acid-reducing medication such as famotidine or [id number] options like omeprazole and follow-up with a four roll calender operator, Dr. Hairston.
2. The patient should not drive home due to the administration of narcotic medication; arrangements for transportation with his mother have been confirmed.
FOLLOW-UP INSTRUCTIONS
The patient is instructed to follow up with Dr. Hairston, the four roll calender operator, as scheduled.
MEDICATION RECONCILIATION
1. Famotidine (Pepcid) - Administered intravenously in the emergency department.
2. Narcotic analgesic - Administered in the emergency department; patient advised not to drive.
3. Ondansetron (Zofran) - Prescription confirmed for home use.
MEDICAL DECISION MAKING
-Complexity of Data Reviewed: Chronic conditions affecting care include a history of Cannabinoid Hyperemesis Syndrome. Differential diagnosis includes: Cannabinoid Hyperemesis Syndrome, Gastroesophageal Reflux Disease, Peptic ulcer disease,
Gastritis, Pancreatitis, Small bowel obstruction, Appendicitis, Inflammatory Bowel Disease, Gastroenteritis, Food poisoning.
-Data:
Category 1
Non-emergency department records reviewed, including the patients outpatient pharmacy records and historical ER visit records, which noted similar previous episodes.
Category 3
Discussion of management with a follow-up plan including four roll calender operator, Dr. Hairston.
-Risk:
Prescription medication was prescribed, including narcotics administered in the emergency department. Care is significantly affected by social determinants of health, specifically the patients previous cannabis use.
DIAGNOSIS
1. Abdominal pain, unspecified - ICD-10-CM R10.9
2. Nausea with vomiting, unspecified - ICD-10-CM R11.2
SUMMARY OF ENCOUNTER
The patient is a 39-year-old male who presented to the emergency department with severe abdominal pain and vomiting. His symptoms have escalated compared to previous episodes, with additional intensity, which made him seek urgent care. The patient
has a history of Cannabinoid Hyperemesis Syndrome but has been abstinent from cannabis for over three months. In the emergency department, he received intravenous fluids, a strong dose of intravenous famotidine (Pepcid) for acid relief, and
analgesia, including a narcotic, which provided symptom relief. He was also noted to have a prescription for ondansetron (Zofran) at home for nausea management.
PLAN
1. Continue using acid-reducing medication such as famotidine or [id number] options like omeprazole and follow-up with a four roll calender operator, Dr. Hairston.
2. The patient should not drive home due to the administration of narcotic medication; arrangements for transportation with his mother have been confirmed.
FOLLOW-UP INSTRUCTIONS
The patient is instructed to follow up with Dr. Hairston, the four roll calender operator, as scheduled.
MEDICATION RECONCILIATION
1. Famotidine (Pepcid) - Administered intravenously in the emergency department.
2. Narcotic analgesic - Administered in the emergency department; patient advised not to drive.
3. Ondansetron (Zofran) - Prescription confirmed for home use.
MEDICAL DECISION MAKING
-Complexity of Data Reviewed: Chronic conditions affecting care include a history of Cannabinoid Hyperemesis Syndrome. Differential diagnosis includes: Cannabinoid Hyperemesis Syndrome, Gastroesophageal Reflux Disease, Peptic ulcer disease,
Gastritis, Pancreatitis, Small bowel obstruction, Appendicitis, Inflammatory Bowel Disease, Gastroenteritis, Food poisoning.
-Data:
Category 1
Non-emergency department records reviewed, including the patients outpatient pharmacy records and historical ER visit records, which noted similar previous episodes.
Category 3
Discussion of management with a follow-up plan including four roll calender operator, Dr. Hairston.
-Risk:
Prescription medication was prescribed, including narcotics administered in the emergency department. Care is significantly affected by social determinants of health, specifically the patients previous cannabis use.
DIAGNOSIS
1. Abdominal pain, unspecified - ICD-10-CM R10.9
2. Nausea with vomiting, unspecified - ICD-10-CM R11.2
LABS
- White count 16.1 but this is similar to prior evaluation, chemistries relatively unremarkable
Patient was given Dilaudid, Zofran, Pepcid and and 2 L of IV fluids. He feels markedly improved after meds given. I did speak to another provider who tells me that the patient told her that he did use marijuana more recently but the patient told
me that he had not used marijuana in about 3 months. We did still talk about the possibility of cannabinoid hyperemesis syndrome.
Past History
Past History
ED Past Medical History: Arrthythmia (SVT), HTN, Psychiatric (Anxiety) and Other (Sleep apnea, Colitis)
ED Past Surgical History: Cardiac (Ablation for SVT) and Other (Deviated septum repair)
Social History
Tobacco: Non-smoker
Alcohol: None
Drug: Former user (Former user of marijuana)
Personal: Single
Living: with family
Phy Exam
Physical Exam
Physical Exam:
See HPI
Course
Orders/Labs/Results
Orders:
Orders
02/20/25 20:38
0.9% Sodium Chloride 1000 ml [Nss] 1,000 ml IV BOLUS
Famotidine [Pepcid] 40 mg IV NOW STA
HYDROmorphone [Dilaudid] 1 mg IV NOW STA
02/20/25 20:39
0.9% Sodium Chloride 1000 ml [Nss] 1,000 ml IV BOLUS
02/20/25 20:45
Complete Blood Count/With Diff Urgent
Comprehensive Metabolic Panel Urgent
Lipase Urgent
Abnormal Lab Results
02/20/25
20:45
WBC 16.1 H 10^3/uL
(4.8-10.8)
RBC 4.58 L 10^6/uL
(4.70-6.10)
MCH 32.1 H pg
(27.0-31.0)
Abs Immat Gran (auto) 0.1 H 10^3/uL
(0-0.05)
Absolute Neuts (auto) 13.6 H 10^3/uL
(1.4-6.5)
Absolute Monos (auto) 1.2 H 10^3/uL
(0.1-0.6)
Neutrophils % 84.8 H %
(42.2-75.2)
Lymphocytes % 7.6 L %
(20.5-51.1)
Sodium 134 L mmol/L
(135-145)
Chloride 92 L mmol/L
(98-107)
BUN 21 H mg/dl
(9-20)
Glucose 105 H mg/dl
(70-99)
Total Protein 9.0 H g/dl
(6.3-8.2)
Albumin 5.4 H g/dl
(3.5-5.0)
02/20/25 20:45
02/20/25 20:45
Vital Signs
Initial and Last Documented VS:
Initial Vital Signs
Temp Pulse Resp BP Pulse Ox
36.4 C 114 20 138/104 98
02/20/25 19:38 02/20/25 19:38 02/20/25 19:38 02/20/25 19:38 02/20/25 19:38
Last Documented Vital Signs
Temp Pulse Resp BP Pulse Ox
36.4 C 84 16 124/75 98
02/20/25 19:38 02/20/25 22:40 02/20/25 22:40 02/20/25 22:40 02/20/25 22:40
*Pulse Oximetry
SaO2: 98
Oxygen Mode of Delivery: Room air
Patient hypoxic: no
*Critical Care Note
Total Time (30-74mins, 75-104mins- exclusive of procedures): Not Applicable
ED Attending Note
-
Portions of this chart may have been created with voice recognition software.� Occasional wrong word or��sound alike� substitutions may have occurred due to the inherent limitations of voice recognition software.
Discharge Plan
Departure
Patient Disposition: Home (Routine Discharge)
Date of Disposition: 02/20/25
Time of Disposition: 23:10
Patient with high blood pressure during this ER visit?: Yes
Discharge Problem:
Cannabinoid hyperemesis syndrome, Nausea and vomiting
Instructions: Nausea and Vomiting, Adult (DC)
Prescriptions:
No Action
Unisom (doxylamine) 25 MG tablet
25 mg PO HS
alprazolam 1 MG tablet
1 mg PO HS
fluticasone propionate 1 SPRAY spray,suspension
1 spray intranasal BID
finasteride 1 MG tablet
1 mg PO DAILY
amlodipine [Norvasc] 2.5 mg Tablet
2.5 mg PO DAILY
metoprolol succinate 100 mg tablet extended release 24 hr
100 mg PO DAILY
bupropion HCl 300 mg Tablet Extended Release 24 Hr
300 mg PO DAILY
emtricitabine-tenofovir (TDF) [Truvada] 200-300 mg Tablet
1 tab PO DAILY
therapeutic multivitamin Tablet
1 tab PO DAILY
minoxidil 2.5 mg Tablet
1.25 mg PO DAILY
alprazolam [Xanax] 0.5 mg Tablet
0.5 mg PO DAILY
PreserVision AREDS 2,148 mcg-113 mg-45 mg-17.4mg Tablet
1 tab PO DAILY
[place] 3-6-9 1,200 mg Capsule
1 cap PO DAILY
turmeric 400 mg Capsule
500 mg PO DAILY
atomoxetine 10 mg Capsule
10 mg PO HS
Zepbound 5 mg/0.5 mL Pen Injector
5 mg SC GENAO
dicyclomine 10 mg capsule
10 mg PO DAILY Qty: 5 0RF
dicyclomine 20 mg tablet
20 mg PO QID PRN (Reason: abdominal pain) Qty: 10 0RF
Referrals:
Lázaro Quezada MD [Family Provider, Family Practice]
Activity Restrictions/Additional Instructions:
Your white blood cell count is high but it has been high over the last several times you have been here. We gave you 2 L of IV fluid. We also gave you Pepcid. You can consider taking Pepcid in addition to omeprazole at home. Other basic blood
work relatively unremarkable. Follow-up with GI. I strongly recommend continuing to not use marijuana. No driving tonight as you did receive a dose of Dilaudid.
Interventions
Interventions:
*Risk Screen - Suicide Last Done: 02/20/25 20:32
*General Assessment Last Done: 02/20/25 19:38
*Neglect/Abuse Screening Last Done: 02/20/25 20:32
*ED- Fall Risk Assessment Last Done: 02/20/25 20:32
*ED COVID-19 Vaccine History Last Done: 02/20/25 20:32
*ED Influenza Vaccine History Last Done: 02/20/25 20:32
*Nursing Disposition Last Done: 02/20/25 22:34
EC-Qpxwdr-Yovhfewcki Assessment Last Done: 02/20/25 20:32
Discharge Date and Time
Discharge Date/Time: 02/20/25 23:12
Print Language: CZECH
[2025-02-20] MEDS: PEPCID 40 MG IV (20:42)
[2025-02-20] MEDS: NSS 1000 IV ×2 (20:43→20:52)
[2025-02-20] MEDS: DILAUDID 1 MG IV (20:43)
[2025-02-20 20:52] LABS: Hematocrit 41.8 % (39.0-52.0); Hemoglobin 14.7 g/dL (13.0-18.0); Mean Corp Hgb Conc. 35.2 g/dL (33.0-37.0); Mean Corpuscular Volume 91.3 fL (80.0-94.0); Nucleated Red Blood Cells % 0 % (-); Platelet Count 337 10^3/uL (130-400); Red Cell Dist. Width 12.4 % (11.5-14.5)
[2025-02-20 21:15] LABS: ALT (SGPT) 23 U/L (0-50); AST (SGOT) 27 U/L (17-59); Albumin 5.4 g/dl (3.5-5.0); Alkaline Phosphatase 40 U/L (38-126); Blood Urea Nitrogen 21 mg/dl (9-20); Calcium 10.2 mg/dl (8.4-10.2); Carbon Dioxide 30 mmol/L (22-30); Chloride 92 mmol/L (98-107); Glucose 105 mg/dl (70-99); Lipase 93 U/L (23-300); Potassium 4.1 mmol/L (3.5-5.1); Sodium 134 mmol/L (135-145); Total Protein 9.0 g/dl (6.3-8.2); eGFR > 60.00
[2025-02-20 21:47] VITALS: BP 119/93
[2025-02-20 22:40] VITALS: BP 124/75
== END 2025-02-20 23:12 | disposition home or self-care (01) ==
LOC: EMR 19:35
PROVIDERS: EMERGENCY PHYSICIAN Emergency Medicine; FAMILY PHYSICIAN Family Medicine
DX: R11.16 Cannabis hyperemesis syndrome (principal); R11.2 Nausea with vomiting, unspecified; G47.30 Sleep apnea, unspecified; I10 Essential (primary) hypertension
CPT/HCPCS: 96374; 96361; 99284; 80053; 83690; 85025

== ENCOUNTER 2025-02-21 19:11 | Emergency (ER) | payer OTHER, SELFPAY ==
[2025-02-21 19:38] LABS: Hematocrit 42.0 % (39.0-52.0); Hemoglobin 14.6 g/dL (13.0-18.0); Mean Corp Hgb Conc. 34.8 g/dL (33.0-37.0); Mean Corpuscular Volume 93.3 fL (80.0-94.0); Nucleated Red Blood Cells % 0 % (-); Platelet Count 329 10^3/uL (130-400); Red Cell Dist. Width 12.2 % (11.5-14.5)
[2025-02-21 20:04] LABS: ALT (SGPT) 22 U/L (0-50); AST (SGOT) 26 U/L (17-59); Albumin 4.9 g/dl (3.5-5.0); Alkaline Phosphatase 38 U/L (38-126); Blood Urea Nitrogen 15 mg/dl (9-20); Calcium 9.8 mg/dl (8.4-10.2); Carbon Dioxide 26 mmol/L (22-30); Chloride 98 mmol/L (98-107); Glucose 158 mg/dl (70-99); Lipase 255 U/L (23-300); Potassium 4.3 mmol/L (3.5-5.1); Sodium 132 mmol/L (135-145); Total Protein 8.0 g/dl (6.3-8.2); eGFR > 60.00
--- NOTE | 2025-02-21 20:25 | ED.GENMED ---
History of Present Illness
General
Chief Complaint: Abdominal Pain
Source: patient and records
Exam Limitations: none
Time Seen by Provider: 02/21/25 19:53
History of Present Illness
History of Present Illness:
39yoM with a history of hypertension, GERD, SVT, and anxiety presenting for evaluation of nausea and vomiting. Symptoms began 2 days ago. This is his third ED visit since symptoms began. He vomited about 4-5 times today. He also is experiencing
a burning pain in his epigastric region. He feels better during his ED visits but symptoms recur after discharge. He tried to eat chicken today which did not go well. He has been previously diagnosed with cannabinoid hyperemesis syndrome. He
states his last use of marijuana was 3 months ago although ED visit from 02/20 documents use on that day. He is retail planning manager is Dr. Hairston. He denies any suspicious food intake or sick contacts. Patient started taking Zepbound about 4 months
ago.
Past History
Past History
ED Past Medical History: Arrthythmia (SVT), HTN, Psychiatric (Anxiety) and Other (Sleep apnea, Colitis)
ED Past Surgical History: Cardiac (Ablation for SVT) and Other (Deviated septum repair)
Social History
Tobacco: Non-smoker
Alcohol: None
Drug: Former user (Former user of marijuana)
Personal: Single
Living: with family
Phy Exam
Physical Exam
Physical Exam:
Retching during exam
General Physical Exam
General Presentation: mild distress
General age: appears stated age
General Skin: warm and dry
General Habitus: normal
ENT Exam
ENT Exam: normocephalic
Cardiovascular Exam
Cardiovascular Exam: regular rate/rhythm
Pulmonary Exam
Pulmonary Exam: lungs clear, no respiratory distress, no rales, no crackles, no rhonchi and no wheezing
Gastrointestinal Exam
Gastrointestinal Exam: soft, non distended and other (+Epigastric tenderness. Abdomen soft, non-distended. No rebound or guarding.)
Neurological Exam
Neurological Exam: alert
[place] Coma Scale
Eye Opening: Spontaneous
Verbal Response: Oriented
Motor Response: Obeys Commands
GCS Total Score: 15
Skin Exam
Skin Exam: normal color and warm/dry
Psychiatric Exam
Psychiatric Exam: normal mood/affect
Course
Orders/Labs/Results
Orders:
Orders
02/21/25 19:31
Complete Blood Count/With Diff Urgent
Comprehensive Metabolic Panel Urgent
Lipase Urgent
Magnesium Urgent
Comment: ADD ON
02/21/25 20:15
Electrocardiogram (*1) Urgent
Reason for Study: QTc Monitoring
EKG- Treatment ONCE
02/21/25 20:23
0.9% Sodium Chloride 1000 ml [Nss] 1,000 ml IV BOLUS
Famotidine [Pepcid] 20 mg IV NOW STA
Haloperidol Lactate [Haldol] 5 mg IM NOW STA
02/21/25 20:43
Add On- LAB Urgent
Tests Added?: magnesium
02/21/25 21:20
Ketorolac [Toradol] 15 mg IV NOW STA
Abnormal Lab Results
02/21/25
19:31
WBC 14.6 H 10^3/uL
(4.8-10.8)
RBC 4.50 L 10^6/uL
(4.70-6.10)
MCH 32.4 H pg
(27.0-31.0)
Abs Immat Gran (auto) 0.1 H 10^3/uL
(0-0.05)
Absolute Neuts (auto) 11.5 H 10^3/uL
(1.4-6.5)
Absolute Monos (auto) 0.8 H 10^3/uL
(0.1-0.6)
Neutrophils % 79.0 H %
(42.2-75.2)
Lymphocytes % 14.3 L %
(20.5-51.1)
Sodium 132 L mmol/L
(135-145)
Glucose 158 H mg/dl
(70-99)
02/21/25 19:31
02/21/25 19:31
Vital Signs
Initial and Last Documented VS:
Initial Vital Signs
Temp Pulse BP Pulse Ox
97.4 F 92 172/119 100
02/21/25 20:50 02/21/25 20:50 02/21/25 20:50 02/21/25 20:50
Last Documented Vital Signs
Temp Pulse Resp BP Pulse Ox
97.4 F 95 20 127/92 99
02/21/25 20:50 02/21/25 23:25 02/21/25 23:25 02/21/25 23:25 02/21/25 23:25
MDM/Problems Addressed
Differential Diagnosis Includes:
39yoM here with vomiting. 3rd ED visit for the same in the past 48 hours. Hx of cannabinoid hyperemesis syndrome. He is hypertensive on arrival. He is retching during exam. Mild epigastric tenderness but abdominal exam otherwise benign. Had upper
abdominal ultrasound on 02/20 which was unremarkable. Differential diagnosis includes but is not limited to: cannabinoid hyperemesis syndrome, cyclic vomiting syndrome, Zepound side effect, gastroenteritis, pancreatitis, dehydration
Initial ED plan: Labs obtained in triage. White count 14 which is nonspecific and may be reactive 2/2 vomiting. Sodium 132, remainder of electrolytes and renal function normal. Prolonged QTc yesterday. Repeat EKG today shows improvement with QTc of
477. IM Haldol for nausea. Will also give Pepcid and fluid bolus.
*Pulse Oximetry
Patient hypoxic: no
*EKG
Interpreted by ED Provider?: Yes
EKG Intrepretation Date: 02/21/25
Heart Rate: 93
Rate: normal
Rhythm: sinus
Reedy: normal axis
Interval: normal interval (QTc 477)
QRS Pattern: normal QRS
Ischemia: no ischemia
*Critical Care Note
Total Time (30-74mins, 75-104mins- exclusive of procedures): Not Applicable
Update Note
Update Note:
Patient feeling significantly improved on reassessment and no longer feels nauseous. He was able to tolerate PO challenge and feels well for discharge. He was encouraged to f/u with his GI team and ED return precautions reviewed. Patient discharged
in stable condition.
ED Attending Note
-
Portions of this chart may have been created with voice recognition software.� Occasional wrong word or��sound alike� substitutions may have occurred due to the inherent limitations of voice recognition software.
Discharge Plan
Departure
Patient Disposition: Home (Routine Discharge)
Date of Disposition: 02/21/25
Time of Disposition: 22:58
Patient with high blood pressure during this ER visit?: Yes
Discharge Problem:
Nausea and vomiting
Instructions: Nausea and Vomiting, Adult (DC)
Prescriptions:
No Action
Unisom (doxylamine) 25 MG tablet
25 mg PO HS
alprazolam 1 MG tablet
1 mg PO HS
fluticasone propionate 1 SPRAY spray,suspension
1 spray intranasal BID
finasteride 1 MG tablet
1 mg PO DAILY
amlodipine [Norvasc] 2.5 mg Tablet
2.5 mg PO DAILY
metoprolol succinate 100 mg tablet extended release 24 hr
100 mg PO DAILY
bupropion HCl 300 mg Tablet Extended Release 24 Hr
300 mg PO DAILY
emtricitabine-tenofovir (TDF) [Truvada] 200-300 mg Tablet
1 tab PO DAILY
therapeutic multivitamin Tablet
1 tab PO DAILY
minoxidil 2.5 mg Tablet
1.25 mg PO DAILY
alprazolam [Xanax] 0.5 mg Tablet
0.5 mg PO DAILY
PreserVision AREDS 2,148 mcg-113 mg-45 mg-17.4mg Tablet
1 tab PO DAILY
[place] 3-6-9 1,200 mg Capsule
1 cap PO DAILY
turmeric 400 mg Capsule
500 mg PO DAILY
atomoxetine 10 mg Capsule
10 mg PO HS
Zepbound 5 mg/0.5 mL Pen Injector
5 mg SC GENAO
dicyclomine 10 mg capsule
10 mg PO DAILY Qty: 5 0RF
dicyclomine 20 mg tablet
20 mg PO QID PRN (Reason: abdominal pain) Qty: 10 0RF
Referrals:
Lázaro Quezada MD [Family Provider, [facility]]
Activity Restrictions/Additional Instructions:
Stop using marijuana. Drink small sips of fluids every few minutes to stay hydrated. Advance slowly to a bland diet (bananas, rice, applesauce, toast).
Please call tomorrow to schedule follow-up appointments with your family doctor and retail planning manager.
Return to the ER with any new or worsening symptoms.
Interventions
Interventions:
*Risk Screen - Suicide Last Done: 02/21/25 19:18
*General Assessment Last Done: 02/21/25 19:18
*Neglect/Abuse Screening Last Done: 02/21/25 19:18
*ED- Fall Risk Assessment Last Done: 02/21/25 20:15
*ED COVID-19 Vaccine History Last Done: 02/21/25 20:15
*ED Influenza Vaccine History Last Done: 02/21/25 19:18
*Nursing Disposition Last Done: 02/21/25 23:25
BF-Xdezxt-Jqzejhkwze Assessment Last Done: 02/21/25 20:12
Discharge Date and Time
Discharge Date/Time: 02/21/25 23:29
Print Language: [id number]
[2025-02-21 20:50] VITALS: BP 172/119
[2025-02-21] MEDS: NSS 1000 IV (21:08)
[2025-02-21] MEDS: HALDOL 5 MG IM (21:08)
[2025-02-21] MEDS: PEPCID 20 MG IV (21:08)
[2025-02-21 21:13] LABS: Magnesium 2.3 mg/dl (1.6-2.3)
[2025-02-21] MEDS: TORADOL 15 MG IV (21:50)
[2025-02-21 23:25] VITALS: BP 127/92
== END 2025-02-21 23:29 | disposition home or self-care (01) ==
LOC: EMR 19:11
PROVIDERS: Emergency Medicine; EMERGENCY PHYSICIAN Emergency Medicine; FAMILY PHYSICIAN Family Medicine
DX: R11.2 Nausea with vomiting, unspecified (principal); R10.13 Epigastric pain; I10 Essential (primary) hypertension; F41.9 Anxiety disorder, unspecified; G47.30 Sleep apnea, unspecified
CPT/HCPCS: 96374; 96375; 96361; 99284; 80053; 83690; 83735; 85025; 93005

== ENCOUNTER 2025-03-07 14:35 | Emergency (ER) | payer OTHER, SELFPAY ==
[2025-03-07 14:39] VITALS: BP 118/91; BMI 26.0
[2025-03-07 14:50] VITALS: BP 118/91
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
[2025-03-07 16:27] VITALS: BP 133/88
[2025-03-07] MEDS: XANAX 0.5 MG PO (16:28)
== END 2025-03-07 20:43 ==
LOC: EMR 14:35
PROVIDERS: Physician Assistant; EMERGENCY PHYSICIAN Student in an Organized Health Care Education/Training Program; FAMILY PHYSICIAN Family Medicine
DX: F32.A Depression, unspecified (principal); F41.9 Anxiety disorder, unspecified; I10 Essential (primary) hypertension; G47.30 Sleep apnea, unspecified
CPT/HCPCS: 99285; 80306; 80307

== ENCOUNTER 2025-04-09 07:12 | Emergency (ER) | payer OTHER, SELFPAY ==
[2025-04-09 07:15] VITALS: BP 112/76
[2025-04-09] MEDS: NSS 1000 IV ×2 (07:40→11:25)
[2025-04-09] MEDS: ZOFRAN 4 MG IV (07:43)
[2025-04-09 07:45] VITALS: BMI 24.2
--- NOTE | 2025-04-09 07:50 | ED.GENMED ---
History of Present Illness
General
Chief Complaint: Abdominal Symptoms
Source: patient
Exam Limitations: none
Time Seen by Provider: 04/09/25 07:21
Nursing documentation reviewed up to this point in time: agreed with
History of Present Illness
History of Present Illness:
39-year-old male past medical history of hypertension anxiety presenting to the emergency department today with concerns of nausea vomiting over the past 3 days. Denies any abdominal pain no changes in bowel movements. Does take Zepbound. Denies
any chest pain shortness of breath.
Past History
Past History
ED Past Medical History: Arrthythmia (SVT), HTN, Psychiatric (Anxiety) and Other (Sleep apnea, Colitis)
ED Past Surgical History: Cardiac (Ablation for SVT) and Other (Deviated septum repair)
Social History
Tobacco: Non-smoker
Alcohol: None
Drug: Former user (Former user of marijuana)
Personal: Single
Living: with family
Review of Systems
Review of Systems
Allergies reviewed?: Yes
All Other Systems: ROS reviewed and negative except as documented in HPI and ROS
Phy Exam
Physical Exam
Physical Exam:
GENERAL: Alert , in no apparent distress
EYE: pupils equal and reactive
NECK: Supple, no significant adenopathy.
ENT: o/p clr, mmm.
CARDIAC: Regular rate and rhythm .
LUNGS: Clear breath sounds bilaterally, no acute respiratory distress, no wheezes/rales/rhonchi
ABDOMEN: Soft, without focal tenderness, no r/g, no cvat
NEUROLOGICAL: Alert and oriented, no focal neuro deficits
SKIN: Warm and dry, skin intact.
MUSCULOSKELETAL: No edema, well perfused.
PSYCH: Normal and appropriate interaction.
Course
Orders/Labs/Results
Orders:
Orders
04/09/25 07:32
0.9% Sodium Chloride 1000 ml [Nss] 1,000 ml IV BOLUS
Ondansetron Injectable [Zofran] 4 mg IV NOW STA
04/09/25 07:46
Complete Blood Count/With Diff Urgent
Comprehensive Metabolic Panel Urgent
Lipase Urgent
04/09/25 07:50
Alprazolam [Xanax] 1 mg PO ONCE ONE
04/09/25 07:52
EKG [Electrocardiogram (*1)] Urgent
Reason for Study: Abdominal Pain
EKG- Treatment ONCE
04/09/25 08:02
Urinalysis Reflex To Culture Urgent
Date Specimen was Collected: 04/09/25
Time Specimen was Collected: 08:00
Urine Microscopic Reflex Cult Urgent
Urine Culture Urgent
NOA Source: U
Specimen Description:
Date Specimen was Collected: 04/09/25
Time Specimen was Collected: 08:00
Abnormal Lab Results
04/09/25 04/09/25
07:46 08:02
WBC 16.6 H 10^3/uL
(4.8-10.8)
RBC 4.54 L 10^6/uL
(4.70-6.10)
MCH 32.2 H pg
(27.0-31.0)
Abs Immat Gran (auto) 0.1 H 10^3/uL
(0-0.05)
Absolute Neuts (auto) 13.8 H 10^3/uL
(1.4-6.5)
Absolute Monos (auto) 1.3 H 10^3/uL
(0.1-0.6)
Neutrophils % 83.0 H %
(42.2-75.2)
Lymphocytes % 8.7 L %
(20.5-51.1)
Chloride 97 L mmol/L
(98-107)
Alkaline Phosphatase 36 L U/L
(38-126)
Leukocyte Esterase Rfl 1+ A
(Negative)
Urine RBC 3-6 A /HPF
(0-2)
Urine Bacteria (Reflex) Few A
(Negative)
Urine Albumin (Reflex) 1+ A
(Neg - Trace)
04/09/25 07:46
04/09/25 07:46
Vital Signs
Initial and Last Documented VS:
Initial Vital Signs
Temp Pulse Resp BP Pulse Ox
98.3 F 109 18 112/76 97
04/09/25 07:15 04/09/25 07:15 04/09/25 07:15 04/09/25 07:15 04/09/25 07:15
Last Documented Vital Signs
Temp Pulse Resp BP Pulse Ox
98.3 F 101 18 112/76 97
04/09/25 07:15 04/09/25 08:00 04/09/25 07:15 04/09/25 07:15 04/09/25 07:51
MDM/Problems Addressed
MDM/Problems Addressed:
39-year-old male presenting to the emergency department today with concerns of nausea vomiting over the past 3 days. Denies similar symptoms in the past. Does use medical marijuana daily for anxiety also takes Zepbound does have significant
anxiety as well. Takes Xanax daily. Otherwise here after receiving fluids and Zofran and had significant improvement in symptoms and able to tolerate by mouth. Labs without emergent findings. Did have an elevated white count however patient does
chronically have an elevated white count in the past. This is at his baseline. Return precautions given.
*Pulse Oximetry
SaO2: 97
Oxygen Mode of Delivery: Room air
Patient hypoxic: no (97)
*Critical Care Note
Total Time (30-74mins, 75-104mins- exclusive of procedures): Not Applicable
ED Attending Note
-
Portions of this chart may have been created with voice recognition software.� Occasional wrong word or��sound alike� substitutions may have occurred due to the inherent limitations of voice recognition software.
Discharge Plan
Departure
Patient Disposition: Home (Routine Discharge)
Date of Disposition: 04/09/25
Time of Disposition: 10:06
Patient with high blood pressure during this ER visit?: No
Condition: Good
Covid-19: Not Applicable
Discharge Problem:
Vomiting
Instructions: Nausea and Vomiting, Adult (DC)
Prescriptions:
No Action
Unisom (doxylamine) 25 MG tablet
25 mg PO HS
alprazolam 1 MG tablet
1 mg PO HS
fluticasone propionate 1 SPRAY spray,suspension
1 spray intranasal BID
finasteride 1 MG tablet
1 mg PO DAILY
amlodipine [Norvasc] 2.5 mg Tablet
2.5 mg PO DAILY
metoprolol succinate 100 mg tablet extended release 24 hr
100 mg PO DAILY
bupropion HCl 300 mg Tablet Extended Release 24 Hr
300 mg PO DAILY
emtricitabine-tenofovir (TDF) [Truvada] 200-300 mg Tablet
1 tab PO DAILY
therapeutic multivitamin Tablet
1 tab PO DAILY
minoxidil 2.5 mg Tablet
1.25 mg PO DAILY
alprazolam [Xanax] 0.5 mg Tablet
0.5 mg PO DAILY
PreserVision AREDS 2,148 mcg-113 mg-45 mg-17.4mg Tablet
1 tab PO DAILY
[place] 3-6-9 1,200 mg Capsule
1 cap PO DAILY
turmeric 400 mg Capsule
500 mg PO DAILY
atomoxetine 10 mg Capsule
10 mg PO HS
Zepbound 5 mg/0.5 mL Pen Injector
5 mg SC GENAO
dicyclomine 10 mg capsule
10 mg PO DAILY Qty: 5 0RF
dicyclomine 20 mg tablet
20 mg PO QID PRN (Reason: abdominal pain) Qty: 10 0RF
Referrals:
Reynaldo Ramsey DO [Family Provider, Family Practice]
Activity Restrictions/Additional Instructions:
You came to the emergency department today with concerns of nausea vomiting.. Reassuring assessment. Please follow close with the primary care doctor. Return for any worsening, new or concerning symptoms.
Interventions
Interventions:
*General Assessment Last Done: 04/09/25 07:15
*Neglect/Abuse Screening Last Done: 04/09/25 07:15
*ED COVID-19 Vaccine History Last Done: 04/09/25 08:09
*ED Influenza Vaccine History Last Done: 04/09/25 08:09
[facility] Fall Risk Assessment Tool Last Done: 04/09/25 08:01
RX-Bwqtvt-Gybkojezwx Assessment Last Done: 04/09/25 08:09
Discharge Date and Time
Print Language: GERMAN
[2025-04-09 07:58] LABS: Hematocrit 41.8 % (39.0-52.0); Hemoglobin 14.6 g/dL (13.0-18.0); Mean Corp Hgb Conc. 34.9 g/dL (33.0-37.0); Mean Corpuscular Volume 92.1 fL (80.0-94.0); Nucleated Red Blood Cells % 0 % (-); Platelet Count 366 10^3/uL (130-400); Red Cell Dist. Width 12.2 % (11.5-14.5)
[2025-04-09] MEDS: XANAX 1 MG PO (07:58)
[2025-04-09 08:21] LABS: ALT (SGPT) 22 U/L (0-50); AST (SGOT) 23 U/L (17-59); Albumin 4.9 g/dl (3.5-5.0); Alkaline Phosphatase 36 U/L (38-126); Blood Urea Nitrogen 14 mg/dl (9-20); Calcium 10.0 mg/dl (8.4-10.2); Carbon Dioxide 30 mmol/L (22-30); Chloride 97 mmol/L (98-107); Estimated Creatinine Clearance 122 ml/min; Glucose 92 mg/dl (70-99); Lipase 76 U/L (23-300); Potassium 4.1 mmol/L (3.5-5.1); Sodium 138 mmol/L (135-145); Total Protein 8.2 g/dl (6.3-8.2); eGFR > 60.00
[2025-04-09 08:31] LABS: Urine Character Clear (Clear)
[2025-04-09 10:08] VITALS: BP 174/117
[2025-04-09] MEDS: REGLAN 10 MG PO (10:26)
[2025-04-09] MEDS: HALDOL 2 MG IV (11:25)
== END 2025-04-09 13:21 | disposition home or self-care (01) ==
LOC: EMR 07:12
PROVIDERS: Physician Assistant; EMERGENCY PHYSICIAN Emergency Medicine; FAMILY PHYSICIAN Family Medicine
DX: R11.10 Vomiting, unspecified (principal); I10 Essential (primary) hypertension; G47.30 Sleep apnea, unspecified; F41.9 Anxiety disorder, unspecified
CPT/HCPCS: 99284; 96374; 96375; 96361 ×2; 80053; 81003; 81015; 83690; 85025; 87086; 93005

== ENCOUNTER 2025-04-10 04:31 | Emergency (ER) | payer OTHER, SELFPAY ==
[2025-04-10 04:34] VITALS: BP 168/117
[2025-04-10 04:48] VITALS: BMI 25.1
--- NOTE | 2025-04-10 04:51 | ED.GENMED ---
History of Present Illness
<Silverio Steiner PA-C - Last Filed: 04/12/25 19:59>
General
Chief Complaint: Abdominal Symptoms
Time Seen by Provider: 04/10/25 04:38
History of Present Illness
History of Present Illness:
89 with history of depression and anxiety as well as GERD presents to the emergency department for evaluation of intractable nausea and vomiting for the past 2 days. Was seen in this emergency department yesterday at which time he was noted to have
mild leukocytosis but otherwise normal labs, was treated with antiemetics with transient improvement. He was not given any time medics at discharge. He continues to vomit, reports generalized abdominal discomfort but no overt pain. No fevers or
chills. Denies any diarrhea. Has not been able to tolerate his normal medications
Past History
<Silverio Steiner PA-C - Last Filed: 04/12/25 19:59>
Past History
ED Past Medical History: Arrthythmia (SVT), HTN, Psychiatric (Anxiety) and Other (Sleep apnea, Colitis)
ED Past Surgical History: Cardiac (Ablation for SVT) and Other (Deviated septum repair)
Social History
Tobacco: Non-smoker
Alcohol: None
Drug: Former user (Former user of marijuana)
Personal: Single
Living: with family
Review of Systems
<Silverio Steiner PA-C - Last Filed: 04/12/25 19:59>
Review of Systems
Allergies reviewed?: Yes
All Other Systems: ROS reviewed and negative except as documented in HPI and ROS
Phy Exam
<Silverio Steiner PA-C - Last Filed: 04/12/25 19:59>
Physical Exam
Physical Exam:
GEN: Well appearing, NAD, WDWN
HEENT: Oral mucosa moist, no scleral icterus
Cardiac: Regular rate and rhythm, no murmur
Lung: No respiratory distress, no tachypnea
Abdomen: Soft, diffuse tenderness to all 4 quadrants
MSK: No gross deformity or injuries
Skin: Good color, no pallor or jaundice, no rashes
Neuro: AO x3, moves all extremities freely
Psych: Calm, cooperative
Course
<Silverio Steiner PA-C - Last Filed: 04/12/25 19:59>
Orders/Labs/Results
Orders:
Orders
04/10/25 04:47
0.9% Sodium Chloride 1000 ml [Nss] 1,000 ml IV BOLUS
Ondansetron Injectable [Zofran] 4 mg IV NOW STA
04/10/25 05:09
Complete Blood Count/With Diff Urgent
Comprehensive Metabolic Panel Urgent
Lipase Urgent
04/10/25 05:22
Ketorolac [Toradol] 15 mg IV NOW STA
04/10/25 06:22
Metoclopramide [Reglan] 10 mg IV NOW STA
04/10/25 06:32
0.9% Sodium Chloride 1000 ml [Nss] 1,000 ml IV BOLUS
04/10/25 07:22
CT Abd/Pel (IV only)-DH only Urgent
Comment:
Reason For Exam: intractable vomiting/abd pain
Haloperidol Lactate [Haldol] 1 mg IV NOW STA
04/10/25 07:32
Electrocardiogram (*1) Urgent
Reason for Study: QTc Monitoring
04/10/25 07:33
EKG- Treatment ONCE
Abnormal Lab Results
04/10/25
05:09
WBC 15.3 H 10^3/uL
(4.8-10.8)
RBC 4.43 L 10^6/uL
(4.70-6.10)
MCH 32.1 H pg
(27.0-31.0)
Abs Immat Gran (auto) 0.1 H 10^3/uL
(0-0.05)
Absolute Neuts (auto) 12.1 H 10^3/uL
(1.4-6.5)
Absolute Monos (auto) 1.0 H 10^3/uL
(0.1-0.6)
Neutrophils % 79.0 H %
(42.2-75.2)
Lymphocytes % 13.5 L %
(20.5-51.1)
Sodium 134 L mmol/L
(135-145)
04/10/25 05:09
04/10/25 05:09
Vital Signs
Initial and Last Documented VS:
Initial Vital Signs
Temp Pulse Resp BP Pulse Ox
98.6 F 93 18 168/117 100
04/10/25 04:34 04/10/25 04:34 04/10/25 04:34 04/10/25 04:34 04/10/25 04:34
Last Documented Vital Signs
Temp Pulse Resp BP Pulse Ox
98.6 F 88 18 159/109 100
04/10/25 04:34 04/10/25 07:45 04/10/25 07:45 04/10/25 07:00 04/10/25 07:45
<Alvin Gee Jr., PA-Gregory - Last Filed: 04/10/25 08:53>
Orders/Labs/Results
Orders:
Orders
04/10/25 04:47
0.9% Sodium Chloride 1000 ml [Nss] 1,000 ml IV BOLUS
Ondansetron Injectable [Zofran] 4 mg IV NOW STA
04/10/25 05:09
Complete Blood Count/With Diff Urgent
Comprehensive Metabolic Panel Urgent
Lipase Urgent
04/10/25 05:22
Ketorolac [Toradol] 15 mg IV NOW STA
04/10/25 06:22
Metoclopramide [Reglan] 10 mg IV NOW STA
04/10/25 06:32
0.9% Sodium Chloride 1000 ml [Nss] 1,000 ml IV BOLUS
04/10/25 07:22
CT Abd/Pel (IV only)-DH only Urgent
Comment:
Reason For Exam: intractable vomiting/abd pain
Haloperidol Lactate [Haldol] 1 mg IV NOW STA
04/10/25 07:32
Electrocardiogram (*1) Urgent
Reason for Study: QTc Monitoring
04/10/25 07:33
EKG- Treatment ONCE
Abnormal Lab Results
04/10/25
05:09
WBC 15.3 H 10^3/uL
(4.8-10.8)
RBC 4.43 L 10^6/uL
(4.70-6.10)
MCH 32.1 H pg
(27.0-31.0)
Abs Immat Gran (auto) 0.1 H 10^3/uL
(0-0.05)
Absolute Neuts (auto) 12.1 H 10^3/uL
(1.4-6.5)
Absolute Monos (auto) 1.0 H 10^3/uL
(0.1-0.6)
Neutrophils % 79.0 H %
(42.2-75.2)
Lymphocytes % 13.5 L %
(20.5-51.1)
Sodium 134 L mmol/L
(135-145)
04/10/25 05:09
04/10/25 05:09
Vital Signs
Initial and Last Documented VS:
Initial Vital Signs
Temp Pulse Resp BP Pulse Ox
98.6 F 93 18 168/117 100
04/10/25 04:34 04/10/25 04:34 04/10/25 04:34 04/10/25 04:34 04/10/25 04:34
Last Documented Vital Signs
Temp Pulse Resp BP Pulse Ox
98.6 F 88 18 159/109 100
04/10/25 04:34 04/10/25 07:45 04/10/25 07:45 04/10/25 07:00 04/10/25 07:45
<Silverio Steiner PA-C - Last Filed: 04/12/25 19:59>
MDM/Problems Addressed
MDM/Problems Addressed:
Likely self-limited viral syndrome, may be worsened by use of GLP-1 agonist. Patient will be signed out to oncoming shift team pending further antiemetics and IV fluids, no indication for imaging
<Silverio Steiner PA-C - Last Filed: 04/12/25 19:59>
*Pulse Oximetry
SaO2: 100
Oxygen Mode of Delivery: Room air
<Alvin Gee Jr., PA-C - Last Filed: 04/10/25 08:53>
*Pulse Oximetry
Patient hypoxic: no (100)
*Critical Care Note
Total Time (30-74mins, 75-104mins- exclusive of procedures): Not Applicable
<Silverio Steiner PA-C - Last Filed: 04/12/25 19:59>
Update Note
Update Note:
0620: Pt reassessed, still vomiting, unable to tolerate PO. Will give reglan and reassess
<Alvin Gee Jr., PA-C - Last Filed: 04/10/25 08:53>
Update Note
Update Note:
0620: Pt reassessed, still vomiting, unable to tolerate PO. Will give reglan and reassess
0845 CT scan without emergent findings. Patient with significant improvement of symptoms after receiving Haldol. Patient written for antiemetic medication to take at home otherwise will follow-up closely with GI. Return precautions given.:
ED Attending Note
<Silverio Steiner PA-C - Last Filed: 04/12/25 19:59>
-
Portions of this chart may have been created with voice recognition software.� Occasional wrong word or��sound alike� substitutions may have occurred due to the inherent limitations of voice recognition software.
Discharge Plan
Departure
Patient Disposition: Home (Routine Discharge)
Date of Disposition: 04/10/25
Time of Disposition: 08:51
Patient with high blood pressure during this ER visit?: No
Condition: Good
Covid-19: Not Applicable
Discharge Problem:
Intractable nausea and vomiting
Instructions: Nausea and Vomiting, Adult (DC)
Prescriptions:
New
dicyclomine 20 mg tablet
20 mg PO TID Qty: 10 0RF
ondansetron 4 mg tablet,disintegrating
4 mg PO Q6H PRN (Reason: nausea and vomiting) Qty: 7 0RF
No Action
Unisom (doxylamine) 25 MG tablet
25 mg PO HS
alprazolam 1 MG tablet
1 mg PO HS
fluticasone propionate 1 SPRAY spray,suspension
1 spray intranasal BID
finasteride 1 MG tablet
1 mg PO DAILY
amlodipine [Norvasc] 2.5 mg Tablet
2.5 mg PO DAILY
metoprolol succinate 100 mg tablet extended release 24 hr
100 mg PO DAILY
bupropion HCl 300 mg Tablet Extended Release 24 Hr
300 mg PO DAILY
emtricitabine-tenofovir (TDF) [Truvada] 200-300 mg Tablet
1 tab PO DAILY
therapeutic multivitamin Tablet
1 tab PO DAILY
minoxidil 2.5 mg Tablet
1.25 mg PO DAILY
alprazolam [Xanax] 0.5 mg Tablet
0.5 mg PO DAILY
PreserVision AREDS 2,148 mcg-113 mg-45 mg-17.4mg Tablet
1 tab PO DAILY
[place] 3-6-9 1,200 mg Capsule
1 cap PO DAILY
turmeric 400 mg Capsule
500 mg PO DAILY
atomoxetine 10 mg Capsule
10 mg PO HS
Zepbound 5 mg/0.5 mL Pen Injector
7.5 mg SC SA
dicyclomine 20 mg tablet
20 mg PO QID PRN (Reason: abdominal pain) Qty: 10 0RF
dicyclomine 10 mg capsule
10 mg PO DAILY PRN (Reason: cramping)
Referrals:
Lázaro Quezada MD [Family Provider, Family Practice]
Yessica Badillo DO [Active, Gastroenterology] - Follow up in 5-7 days
Activity Restrictions/Additional Instructions:
You came to the emergency department today with concerns of ongoing vomiting. Here you the CT scan did not show any emergent findings. This is reassuring. Please take the prescribed occasions and return for any worsening, new or concerning
symptoms.
Interventions
Interventions:
*General Assessment Last Done: 04/10/25 04:49
*Neglect/Abuse Screening Last Done: 04/10/25 04:34
*ED COVID-19 Vaccine History Last Done: 04/10/25 04:34
*ED Influenza Vaccine History Last Done: 04/10/25 04:34
[facility] Fall Risk Assessment Tool Last Done: 04/10/25 04:49
*Risk Screen - Suicide (C-SSRS) Last Done: 04/10/25 04:49
*Nursing Disposition Last Done: 04/10/25 09:38
YN-Xezxsn-Wsarxphgiv Assessment Last Done: 04/10/25 05:00
Discharge Date and Time
Discharge Date/Time: 04/10/25 09:39
Print Language: CITIZ[place]
[2025-04-10] MEDS: ZOFRAN 4 MG IV (05:01)
[2025-04-10] MEDS: NSS 1000 IV ×2 (05:04→06:47)
[2025-04-10 05:22] VITALS: BP 152/116
[2025-04-10 05:23] LABS: Hematocrit 40.8 % (39.0-52.0); Hemoglobin 14.2 g/dL (13.0-18.0); Mean Corp Hgb Conc. 34.8 g/dL (33.0-37.0); Mean Corpuscular Volume 92.1 fL (80.0-94.0); Nucleated Red Blood Cells % 0 % (-); Platelet Count 321 10^3/uL (130-400); Red Cell Dist. Width 12.3 % (11.5-14.5)
[2025-04-10] MEDS: TORADOL 15 MG IV (05:24)
[2025-04-10 05:28] VITALS: BP 159/116
[2025-04-10 05:42] LABS: ALT (SGPT) 40 U/L (0-50); AST (SGOT) 34 U/L (17-59); Albumin 4.7 g/dl (3.5-5.0); Alkaline Phosphatase 43 U/L (38-126); Blood Urea Nitrogen 12 mg/dl (9-20); Calcium 9.4 mg/dl (8.4-10.2); Carbon Dioxide 24 mmol/L (22-30); Chloride 100 mmol/L (98-107); Estimated Creatinine Clearance > 125 ml/min; Glucose 95 mg/dl (70-99); Lipase 109 U/L (23-300); Potassium 4.1 mmol/L (3.5-5.1); Sodium 134 mmol/L (135-145); Total Protein 7.8 g/dl (6.3-8.2); eGFR > 60.00
[2025-04-10 06:35] VITALS: BP 164/108
[2025-04-10] MEDS: REGLAN 10 MG IV (06:46)
[2025-04-10 07:00] VITALS: BP 159/109
[2025-04-10] MEDS: HALDOL 1 MG IV (07:32)
== END 2025-04-10 09:39 | disposition home or self-care (01) ==
LOC: EMR 04:31
PROVIDERS: Physician Assistant; EMERGENCY PHYSICIAN Student in an Organized Health Care Education/Training Program; FAMILY PHYSICIAN Family Medicine
DX: R11.2 Nausea with vomiting, unspecified (principal)
CPT/HCPCS: 99285; 96374; 96375 ×3; 96361; 74177; 80053; 83690; 85025; 93005; Q9967

== ENCOUNTER 2025-04-14 16:31 | Emergency (ER) | payer OTHER, SELFPAY ==
[2025-04-14 16:33] VITALS: BP 187/116
[2025-04-14 17:09] LABS: Hematocrit 44.5 % (39.0-52.0); Hemoglobin 15.4 g/dL (13.0-18.0); Mean Corp Hgb Conc. 34.6 g/dL (33.0-37.0); Mean Corpuscular Volume 92.1 fL (80.0-94.0); Nucleated Red Blood Cells % 0 % (-); Platelet Count 368 10^3/uL (130-400); Red Cell Dist. Width 12.0 % (11.5-14.5)
[2025-04-14 17:34] LABS: ALT (SGPT) 28 U/L (0-50); AST (SGOT) 26 U/L (17-59); Albumin 5.2 g/dl (3.5-5.0); Alkaline Phosphatase 38 U/L (38-126); Blood Urea Nitrogen 13 mg/dl (9-20); Calcium 10.1 mg/dl (8.4-10.2); Carbon Dioxide 28 mmol/L (22-30); Chloride 98 mmol/L (98-107); Glucose 117 mg/dl (70-99); Lipase 263 U/L (23-300); Potassium 4.5 mmol/L (3.5-5.1); Sodium 134 mmol/L (135-145); Total Protein 8.6 g/dl (6.3-8.2); eGFR > 60.00
--- NOTE | 2025-04-14 19:00 | EDRN ---
pt observed with his fingers down his throat, forcing himself to vomit. requested pt to stop
[2025-04-14] MEDS: HALDOL 1 MG IV (19:25)
[2025-04-14] MEDS: NSS 1000 IV (19:25)
--- NOTE | 2025-04-30 23:30 | ED.GENMED ---
History of Present Illness
General
Chief Complaint: Abdominal Symptoms
Source: patient
Exam Limitations: none
Time Seen by Provider: 04/14/25 19:05
Nursing documentation reviewed up to this point in time: agreed with
History of Present Illness
History of Present Illness:
39 yo male presents to the emergency department due to nausea vomiting abdominal pain for the past 5 days. He is a history of cyclic vomiting and uses marijuana daily.
Past History
Past History
ED Past Medical History: Arrthythmia (SVT), HTN, Psychiatric (Anxiety) and Other (Sleep apnea, Colitis)
ED Past Surgical History: Cardiac (Ablation for SVT) and Other (Deviated septum repair)
Social History
Tobacco: Non-smoker
Alcohol: None
Drug: Former user (Former user of marijuana)
Personal: Single
Living: with family
Review of Systems
Review of Systems
Allergies reviewed?: Yes
All Other Systems: Not applicable
Constitutional: Reports no symptoms
EENT: Reports no symptoms
Respiratory: Reports no symptoms
Cardiac: Reports no symptoms
ABD/GI: Reports nausea and vomiting
: Reports no symptoms
Musculoskeletal: Reports no symptoms
Skin: Reports no symptoms
Neurological: Reports no symptoms
Endocrine: Reports no symptoms
Hematologic/Lymphatic: Reports no symptoms
Psychiatric: Reports no symptoms
Phy Exam
Physical Exam
Physical Exam:
Physical Exam
General: no apparent distress, not acutely ill
Neck: supple. no meningeal signs. normal posterior pharynx
Heart: s1/s2 regular rate and rhythm, no murmur. equal radial
pulses.
HEENT: Pupils equal round reactive to light, EOMI
Lungs: no acute respiratory distress. clear bilaterally
Abdomen: normal bowel sounds. not tender. no CVAT
Neuro: alert and oriented. no focal neurological deficits cranial nerves II through XII intact
Skin: no rash
Psychiatric: well kept. interactive and cooperative
Extremities: no edema. no calf tenderness. negative homans. good distal pulses
Sepsis
Sepsis Screening
Sepsis Assessment: Sepsis Ruled Out
Sepsis Screen
Sepsis Screen: Sepsis Ruled Out
Date: 04/30/25
Time: 23:33
Course
Orders/Labs/Results
Orders:
Orders
04/14/25 16:57
Complete Blood Count/With Diff Urgent
Comprehensive Metabolic Panel Urgent
Lipase Urgent
04/14/25 19:15
0.9% Sodium Chloride 1000 ml [Nss] 1,000 ml IV BOLUS
Haloperidol Lactate [Haldol] 1 mg IV NOW STA
Abnormal Lab Results
04/14/25
16:57
WBC 14.6 H 10^3/uL
(4.8-10.8)
MCH 31.9 H pg
(27.0-31.0)
Abs Immat Gran (auto) 0.1 H 10^3/uL
(0-0.05)
Absolute Neuts (auto) 13.2 H 10^3/uL
(1.4-6.5)
Absolute Lymphs (auto) 1.0 L 10^3/uL
(1.2-3.4)
Immature Gran % 0.6 H %
(0-0.5)
Neutrophils % 91.0 H %
(42.2-75.2)
Lymphocytes % 6.8 L %
(20.5-51.1)
Monocytes % 1.4 L %
(1.7-9.3)
Sodium 134 L mmol/L
(135-145)
Glucose 117 H mg/dl
(70-99)
Total Protein 8.6 H g/dl
(6.3-8.2)
Albumin 5.2 H g/dl
(3.5-5.0)
04/14/25 16:57
04/14/25 16:57
Vital Signs
Initial and Last Documented VS:
Initial Vital Signs
Pulse Resp BP Pulse Ox
103 18 187/116 99
04/14/25 16:33 04/14/25 16:33 04/14/25 16:33 04/14/25 16:33
Last Documented Vital Signs
Pulse Resp BP Pulse Ox
103 18 187/116 99
04/14/25 16:33 04/14/25 16:33 04/14/25 16:33 04/14/25 16:33
MDM/Problems Addressed
Differential Diagnosis Includes:
Bowel obstruction, cyclic vomiting
MDM/Problems Addressed:
39-year-old male with nausea vomiting, daily marijuana use, likely cyclic vomiting exacerbated by daily marijuana use. Patient advised to stop using marijuana.
*Pulse Oximetry
SaO2: 99
Oxygen Mode of Delivery: Room air
Patient hypoxic: no
*Critical Care Note
Total Time (30-74mins, 75-104mins- exclusive of procedures): Not Applicable
ED Attending Note
-
Portions of this chart may have been created with voice recognition software.� Occasional wrong word or��sound alike� substitutions may have occurred due to the inherent limitations of voice recognition software.
Discharge Plan
Departure
Patient Disposition: Home (Routine Discharge)
Date of Disposition: 04/14/25
Time of Disposition: 23:09
Patient with high blood pressure during this ER visit?: Yes
Condition: Good
Discharge Problem:
Nausea and vomiting
Instructions: Nausea and Vomiting, Adult (DC), BLOOD PRESSURE
Prescriptions:
New
ondansetron 4 mg tablet,disintegrating
4 mg PO Q8H PRN (Reason: nausea and vomiting) 4 Days Qty: 10 0RF
No Action
Unisom (doxylamine) 25 MG tablet
25 mg PO HS
alprazolam 1 MG tablet
1 mg PO HS
fluticasone propionate 1 SPRAY spray,suspension
1 spray intranasal BID
finasteride 1 MG tablet
1 mg PO DAILY
amlodipine [Norvasc] 2.5 mg Tablet
2.5 mg PO DAILY
metoprolol succinate 100 mg tablet extended release 24 hr
100 mg PO DAILY
bupropion HCl 300 mg Tablet Extended Release 24 Hr
300 mg PO DAILY
emtricitabine-tenofovir (TDF) [Truvada] 200-300 mg Tablet
1 tab PO DAILY
therapeutic multivitamin Tablet
1 tab PO DAILY
minoxidil 2.5 mg Tablet
1.25 mg PO DAILY
alprazolam [Xanax] 0.5 mg Tablet
0.5 mg PO DAILY
PreserVision AREDS 2,148 mcg-113 mg-45 mg-17.4mg Tablet
1 tab PO DAILY
Winslow 3-6-9 1,200 mg Capsule
1 cap PO DAILY
turmeric 400 mg Capsule
500 mg PO DAILY
atomoxetine 10 mg Capsule
10 mg PO HS
Zepbound 5 mg/0.5 mL Pen Injector
7.5 mg SC SA
dicyclomine 20 mg tablet
20 mg PO QID PRN (Reason: abdominal pain) Qty: 10 0RF
dicyclomine 10 mg capsule
10 mg PO DAILY PRN (Reason: cramping)
dicyclomine 20 mg tablet
20 mg PO TID Qty: 10 0RF
ondansetron 4 mg tablet,disintegrating
4 mg PO Q6H PRN (Reason: nausea and vomiting) Qty: 7 0RF
Referrals:
Reynaldo Ramsey DO [Family Provider, Family Practice] - Call in 1-3 days for appt
Interventions
Interventions:
*General Assessment Last Done: 04/15/25 00:08
*Neglect/Abuse Screening Last Done: 04/15/25 00:08
*ED COVID-19 Vaccine History Last Done: 04/14/25 19:07
*ED Influenza Vaccine History Last Done: 04/14/25 19:07
[facility] Risk Assessment Tool Last Done: 04/15/25 00:08
*Risk Screen - Suicide (C-SSRS) Last Done: 04/15/25 00:08
*Nursing Disposition Last Done: 04/15/25 00:08
[facility] Assessment Last Done: 04/15/25 00:08
Discharge Date and Time
Discharge Date/Time: 04/15/25 00:09
Print Language: JAPANESE
== END 2025-04-15 00:09 | disposition home or self-care (01) ==
LOC: EMR 16:31
PROVIDERS: Emergency Medicine; EMERGENCY PHYSICIAN Emergency Medicine; FAMILY PHYSICIAN Family Medicine
DX: R11.2 Nausea with vomiting, unspecified (principal); F12.90 Cannabis use, unspecified, uncomplicated; I10 Essential (primary) hypertension; G47.30 Sleep apnea, unspecified
CPT/HCPCS: 96374; 96361; 99284; 80053; 83690; 85025